=== PATIENT | male | born 1945 | race Caucasian/White ===

== ENCOUNTER → 2016-07-08 | Outpatient (CLI) | payer MEDICARE ==
[~2016-07-08] MED LIST: ACET50TAOT PO; AMLO10TA2 PO; ASPI325T28 PO; ASPI81TA85 PO; ATOR1TAB18 PO; ATOR40TA PO; CIPR500T89 PO; COMB0.2S OU; ELIQ2.5T PO; ELIQ5TAB PO; LISI-538 PO; LORA0.5T PO; METO25TAB PO; METO37.5 PO; NITR4TASL SL; PLAV75TA PO; RANI150C PO; RANI150T PO; TRAV04OPD OU
== END ==
LOC: M SMT 08:40
PROVIDERS: ATTEND Urology
DX: Z85.46 Personal history of malignant neoplasm of prostate (principal)

== ENCOUNTER 2016-08-14 09:48 | Emergency (ER) | payer MEDICARE ==
[~2016-08-14 09:48] MED LIST changes: +LORA-376 PO; -LORA0.5T PO; -PLAV75TA PO; +PLAV75TA38 PO
[2016-08-14 10:35] LABS: BASO % 0.5 % (0.0-1.0); EOS # 0.4 K/mm3 (0.0-0.50); EOS % 4.9 % (0.0-3.0); LARGE UNSTAINED CELL # 0.2 K/mm3 (0.0-0.4); LARGE UNSTAINED CELL % 2.1 % (0.0-4.0); LYMPH # 1.2 K/mm3 (1.5-4.5); LYMPH % 12.9 % (24.0-44.0); MEAN CORPUSCULAR HEMOGLOBIN 30.7 pg (27.0-33.0); MEAN CORPUSCULAR HGB CONC 33.6 g/dl (32.0-36.5); MEAN CORPUSCULAR VOLUME 91.5 fl (80.0-96.0); MONO % 11.8 % (0.0-5.0); NEUTROPHILS # 5.5 K/mm3 (1.8-7.7); NEUTROPHILS % 67.8 % (36.0-66.0); PLATELET COUNT, AUTOMATED 182 k/mm3 (150-450); RED CELL DISTRIBUTION WIDTH 12.5 % (11.5-14.5); WHITE BLOOD COUNT 8.1 K/mm3 (4.0-10.0)
[2016-08-14 10:37] LABS: MICROSCOPIC INDICATED? MAN YES (NO)
[2016-08-14 10:41] LABS: INR 1.31
[2016-08-14 10:42] LABS: RBC, URINE TNTC /hpf (0-3); SQUAMOUS EPITHELIAL CELL URINE SMALL AMOUNT /hpf (SMALL AMT)
[2016-08-14 10:43] LABS: BACTERIA, URINE NONE SEEN; HYALINE CAST, URINE NONE SEEN /lpf (0-1); MICROSCOPIC EXAM PERFORMED
[2016-08-14 10:53] LABS: CREATININE FOR GFR 1.7 MG/DL (0.70-1.30); GLOMERULAR FILTRATION RATE 42.4 (>42); POTASSIUM SERUM 4.5 MEQ/L (3.5-5.1)
--- NOTE | 2016-08-14 13:22 | EDDOCDS ---
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 noted blood in his urine on [facility] Monday without difficulty urinating. passed some clots in urine this morning. able to void just prior to arrival. Adult Sepsis Screening: The patient does not have new or worsening altered mentation. Patient's respiratory rate is less than 22. Systolic blood pressure is greater than 100. Patient has a qSOFA score of 0- Negative Sepsis Screen. Suicide/Homicide risk assessment- the patient denies having any suicidal and/or homicidal ideations and does not present with any other emotional, behavioral or mental health complaints. Status: Patient is not a repair servicer or dependent. Transition of care: patient was not received from another setting of care. 09:51 Acuity: FRANK Level 3 [facility] 09:51 Method Of Arrival: Walkin/Carried/Asstd [facility] Triage Assessment: 09:55 General: Appears in no apparent distress, comfortable. Pain: Denies pain. pml Historical: - Allergies: steroids (weight gain); - Home Meds: 1. amlodipine 10 mg oral tab 1 tab once daily 2. atorvastatin 80 mg oral tab 1 tab once daily 3. metoprolol tartrate 25 mg oral tab 1 tab once daily 4. Eliquis 2.5 mg oral tab 1 tab 2 times per day 5. ranitidine HCl 150 mg Oral tab 1 tab 2 times per day 6. aspirin 81 mg Oral TbEC 1 tab once daily 7. Combigan 0.2-0.5 % ophthalmic drop 1 drop every 12 hours 8. Travatan Z 0.004 % ophthalmic drop 1 drop once daily 9. lorazepam 0.5 mg Oral tab as needed - PMHx: Atrial Fib; Hypercholesterolemia; Hypertension; prostate cancer; - PSHx: Aortic valve replacement; CABG 2008; Prostatectomy 1996; - Social history: Smoking status: Patient states was never smoker of tobacco. No barriers to communication noted, The patient speaks fluent Bermudian, Speaks appropriately for age. - Family history: Not pertinent. - : The pt / caregiver states he / she is not on anticoagulants. Home medication list is obtained from the patient. - Exposure Risk Screening:: None identified. Screenin:28 Screening information is obtained from the patient. Fall risk: No risks identified. ck1 Assistance ADL's: requires no assistance with activities of daily living. Abuse/DV Screen: The patient / caregiver reports he/she is: not in a situation that causes fear, pain or injury. Nutritional screening: No deficits noted. Advance Directives: Currently, there is a health care proxy, Beth Cortez (). home support is adequate. Assessment: 10:29 General: Appears in no apparent distress, comfortable, Behavior is appropriate for age, ck1 cooperative. Pain: Denies pain. Neurological: Level of Consciousness is awake, alert, obeys commands, Oriented to person, place, time. Respiratory: Respiratory effort is unlabored, Respiratory pattern is regular, symmetrical. GI: No deficits noted. : Urine is ian blood, Denies burning with urination, inability to void, urinary frequency. Derm: Skin is intact, is healthy with good turgor, Skin is pink, warm & dry. Musculoskeletal: Circulation, motion, and sensation intact Range of motion intact in all extremities. 11:03 Reassessment: Patient appears in no apparent distress at this time. Patient denies pain ck1 at this time. resting quietly on stretcher. SO at bedside, call light in reach, will continue to monitor patient. 11:36 General: Appears in no apparent distress, comfortable, Behavior is appropriate for age, mlb1 cooperative. Pain: Denies pain. Neurological: No deficits noted. 12:04 General: Appears in no apparent distress, comfortable, Behavior is appropriate for age, mlb1 cooperative. Pain: Denies pain. : Urine is ian blood. 12:49 General: Appears in no apparent distress, comfortable, Behavior is appropriate for age, mlb1 cooperative. Pain: Denies pain. Respiratory: No deficits noted. Derm: Skin is pink, warm & dry. normal. 13:19 General: Appears in no apparent distress, comfortable, Behavior is appropriate for age, mlb1 cooperative. Pain: Denies pain. Respiratory: No deficits noted. :. Derm: Skin is pink, warm & dry. normal. Vital Signs: 09:50 BP 176 / 82; Pulse 56; Resp 16; Pulse Ox 100% on R/A; Weight 72.57 kg (R); Height 5 ft. elp 8 in. (172.72 cm) (R); 10:15 Temp 97.1(TE); jml1 13:19 BP 150 / 84; Pulse 60; Resp 16; Temp 96.7(O); Pulse Ox 97% on R/A; Pain 0/10; mlb1 09:50 Body Mass Index 24.33 (72.57 kg, 172.72 cm) elp 09:50 Could not get a temp at intake. elp Vitals: 09:50 Log In Time: August 14, 2016 at 09:48. elp ED Course: 09:49 Patient visited by Madelin Bass PCA. elp 09:49 Patient moved to Waiting elp 09:50 Arabella Davalos is Private Physician. elp 09:50 Patient visited by Madelin Bass PCA. elp 09:50 Patient moved to Pre RCE elp 09:52 Triage Initiated pml 09:55 Patient visited by Liliya Hernandez RN. pml 09:55 Patient moved to Triage 1 pml 09:56 [facility] ar2 09:56 Luke Gilbert MD is Attending Physician. ar2 09:56 Patient visited by Delfino Garcia PA-C. ar2 10:15 Patient visited by Fareed Landa. jml1 10:16 Patient moved to I2 / M2 mlb1 10:27 Patient visited by Antonia Campoverde,AVTAR. ck1 10:28 URINALYSIS MANUAL Sent. ck1 10:28 Pt & Aptt Sent. ck1 10:28 MED Profile Sent. ck1 10:28 CBC with Diff Sent. ck1 10:28 Inserted saline lock: 20 gauge in right antecubital area and blood collected. The ck1 patient tolerated the procedure well. 10:29 The patient / caregiver is instructed regarding the plan of care and ED course. ck1 10:39 MICROSCOPIC, URINE Sent. ck1 11:03 Patient visited by Antonia Campoverde,AVTAR. ck1 11:29 [facility] Payment Agreement was scanned into [employer] and attached to record. mm15 11:36 Patient visited by Nic Vasquez RN. mlb1 12:04 Patient visited by Nic Vasquez RN. mlb1 12:50 Patient visited by Antonia Campoverde RN. ck1 12:50 Patient visited by Nic Vasquez RN. mlb1 13:20 Discontinued lock intact, bleeding controlled, pressure dressing applied, No mlb1 redness/swelling at site. No procedures done that require assistance. Administered Medications: 10:28 Drug: NS 0.9% 1000 ml [sodium chloride 0.9 % intravenous solution] Route: IV; Rate: ck1 bolus; Site: right antecubital; 11:35 Follow up: IV Status: Completed infusion mlb1 12:03 Drug: NS 0.9% 1000 ml [sodium chloride 0.9 % injection solution] Route: IV; Rate: 250 mlb1 mL/hr; Site: left antecubital; Output: 12:03 Urine: 175.00ml (Voided); Total: 175.00ml. mlb1 Order Results: Lab Order: CBC with Diff; SPEC'M 08/14/16 10:18 Test: WHITE BLOOD COUNT; Value: 8.1; Range: 4.0-10.0; Units: K/mm3; Status: F Test: RED BLOOD COUNT; Value: 4.22; Range: 4.30-6.10; Abnormal: Below low normal; Units: M/mm3; Status: F Test: HEMOGLOBIN; Value: 13.0; Range: 14.0-18.0; Abnormal: Below low normal; Units: g/dl; Status: F Test: HEMATOCRIT; Value: 38.7; Range: 42.0-52.0; Abnormal: Below low normal; Units: %; Status: F Test: MEAN CORPUSCULAR VOLUME; Value: 91.5; Range: 80.0-96.0; Units: fl; Status: F Test: MEAN CORPUSCULAR HEMOGLOBIN; Value: 30.7; Range: 27.0-33.0; Units: pg; Status: F Test: MEAN CORPUSCULAR HGB CONC; Value: 33.6; Range: 32.0-36.5; Units: g/dl; Status: F Test: RED CELL DISTRIBUTION WIDTH; Value: 12.5; Range: 11.5-14.5; Units: %; Status: F Test: PLATELET COUNT, AUTOMATED; Value: 182; Range: 150-450; Units: k/mm3; Status: F Test: NEUTROPHILS %; Value: 67.8; Range: 36.0-66.0; Abnormal: Above high normal; Units: %; Status: F Test: LYMPH %; Value: 12.9; Range: 24.0-44.0; Abnormal: Below low normal; Units: %; Status: F Test: MONO %; Value: 11.8; Range: 0.0-5.0; Abnormal: Above high normal; Units: %; Status: F Test: EOS %; Value: 4.9; Range: 0.0-3.0; Abnormal: Above high normal; Units: %; Status: F Test: BASO %; Value: 0.5; Range: 0.0-1.0; Units: %; Status: F Test: LARGE UNSTAINED CELL %; Value: 2.1; Range: 0.0-4.0; Units: %; Status: F Test: NEUTROPHILS #; Value: 5.5; Range: 1.8-7.7; Units: K/mm3; Status: F Test: LYMPH #; Value: 1.2; Range: 1.5-4.5; Abnormal: Below low normal; Units: K/mm3; Status: F Test: MONO #; Value: 1.0; Range: 0.0-0.8; Abnormal: Above high normal; Units: K/mm3; Status: F Test: EOS #; Value: 0.4; Range: 0.0-0.50; Units: K/mm3; Status: F Test: BASO #; Value: 0.0; Range: 0.0-0.2; Units: K/mm3; Status: F Test: LARGE UNSTAINED CELL #; Value: 0.2; Range: 0.0-0.4; Units: K/mm3; Status: F Lab Order: [facility]; SPEC'M 08/14/16 10:18 Test: GLUCOSE, FASTING; Value: 105; Range: 83-110; Units: MG/DL; Status: F Test: BLOOD UREA NITROGEN; Value: 28; Range: 7-18; Abnormal: Above high normal; Units: MG/DL; Status: F Test: CREATININE FOR GFR; Value: 1.70; Range: 0.70-1.30; Abnormal: Above high normal; Units: MG/DL; Status: F Test: GLOMERULAR FILTRATION RATE; Value: 42.4; Range: >42; Status: F Test: SODIUM LEVEL; Value: 143; Range: 136-145; Units: MEQ/L; Status: F Test: POTASSIUM SERUM; Value: 4.5; Range: 3.5-5.1; Units: MEQ/L; Status: F Test: CHLORIDE LEVEL; Value: 109; Range: 98-107; Abnormal: Above high normal; Units: MEQ/L; Status: F Test: CARBON DIOXIDE LEVEL; Value: 28; Range: 21-32; Units: MEQ/L; Status: F Test: ANION GAP; Value: 6; Range: 8-16; Abnormal: Below low normal; Units: MEQ/L; Status: F Test: CALCIUM LEVEL; Value: 9.0; Range: 8.8-10.2; Units: MG/DL; Status: F Test Note: ; Units are mL/min/1.73 m2 Chronic Kidney Disease Staging per NKF: Stage I & II GFR >=60 Normal to Mildly Decreased Stage III GFR 30-59 Moderately Decreased Stage IV GFR 15-29 Severely Decreased Stage V GFR <15 Very Little GFR Left ESRD GFR <15 on HAIR BLENDER Lab Order: Pt & Aptt; SPEC'08/14/16 10:18 Test: PROTHROMBIN TIME; Value: 16.4; Range: 12.3-14.5; Abnormal: Above high normal; Units: SECONDS; Status: F Test: INR; Value: 1.31; Status: F Test: PARTIAL THROMBOPLASTIN TIME; Value: 31.8; Range: 26.6-37.1; Units: SECONDS; Status: F Test Note: ; THERAPUTIC HUMAN INR VALUES INDICATIONS NORMAL RANGES PROPHYLAXIS/TREATMENT OF: VENOUS THROMBOSIS 2.0-3.0 PULMONARY EMBOLISM 2.0-3.0 PREVENTION OF SYSTEMIC EMBOLISM FROM: TISSUE HEART VALVES 2.0-3.0 ACUTE MYOCARDIAL INFARCTION 2.0-3.0 VALVULAR HEART DISEASE 2.0-3.0 ATRIAL FIBRILLATION 2.0-3.0 MECHANICAL VALVES(HIGH RISK) 2.5-3.5 RECURRENT MYOCARDIAL INFARCTION 2.5-3.5 Lab Order: URINALYSIS MANUAL; SPEC'08/14/16 10:16 Test: APPEARANCE, URINE MANUAL; Value: CLOUDY; Range: CLEAR; Abnormal: Above high normal; Status: F Test: COLOR, URINE MANUAL; Value: RED; Range: YELLOW; Abnormal: Above high normal; Status: F Test: PH,URINE MAN; Value: 6.0; Range: 5.0 - 9.0; Units: UNITS; Status: F Test: SPECIFIC GRAVITY,URINE MANUAL; Value: 1.015; Range: 1.002-1.035; Status: F Test: PROTEIN, URINE MANUAL; Value: 3+; Range: NEGATIVE; Abnormal: Above high normal; Units: mg/dL; Status: F Test: GLUCOSE, URINE (UA) MANUAL; Value: NEGATIVE; Range: NEGATIVE; Units: mg/dL; Status: F Test: KETONE, URINE MANUAL; Value: NEGATIVE; Range: NEGATIVE; Units: mg/dL; Status: F Test: UROBILINOGEN, URINE MANUAL; Value: NORMAL; Range: NORMAL; Units: mg/dl; Status: F Test: BILIRUBIN, URINE MANUAL; Value: NEGATIVE; Range: NEGATIVE; Status: F Test: NITRITE, URINE MANUAL; Value: NEGATIVE; Range: NEGATIVE; Status: F Test: LEUKOCYTE ESTERASE, URINE MAN; Value: POSITIVE; Range: NEGATIVE; Abnormal: Above high normal; Status: F Test: BLOOD URINE MANUAL; Value: POSITIVE; Range: NEGATIVE; Abnormal: Above high normal; Status: F Lab Order: MICROSCOPIC, URINE; SPEC'M 08/14/16 10:16 Test: WBC, URINE; Value: 10-15; Range: 0-3; Abnormal: Above high normal; Units: /hpf; Status: F Test: RBC, URINE; Value: TNTC; Range: 0-3; Abnormal: Above high normal; Units: /hpf; Status: F Test: SQUAMOUS EPITHELIAL CELL URINE; Value: SMALL AMOUNT; Range: SMALL AMT; Units: /hpf; Status: F Test: BACTERIA, URINE; Value: NONE SEEN; Range: NONE; Status: F Test: HYALINE CAST, URINE; Value: NONE SEEN; Range: 0-1; Units: /lpf; Status: F Test: MICROSCOPIC EXAM; Value: PERFORMED; Status: F Outcome: 13:04 Discharge ordered by Provider. ar2 13:20 Discharge Assessment: Patient awake, alert and oriented x 3. No cognitive and/or mlb1 functional deficits noted. Patient verbalized understanding of disposition instructions. patient administered narcotics - no. The following High Risk Discharge criteria are identified: None. Discharged to home ambulatory, with significant other. Condition: good. Discharge instructions given to patient, significant other, Instructed on discharge instructions, follow up and referral plans. medication usage, Demonstrated understanding of instructions, medications, Pt was receptive of discharge instructions/ teaching. Prescriptions given X 1. No special radiology studies were completed. Property sent home with patient. 13:21 Patient left the ED. mlb1 Signatures: Nic Vasquez RN RN mlb1 Antonia CampoverdeRN RN ck1 Delfino Garcia, PAIgnacioC PAIgnacioC ar2 Fareed Landa jml1 Liliya HernandezRN RN pml Johnnie Pryor mm15 Madelin Bass, AMANDA DEHYDRATION UNIT OPERATOR elp Corrections: (The following items were deleted from the chart) 09:55 09:50 BP 176 / 82; Pulse 56bpm; Resp 16bpm; Pulse Ox 100% RA; 72.57 kg Reported; Height elp 5 ft. 8 in. Reported; BMI: 24.3; elp MTDD
--- NOTE | 2016-08-14 13:22 | EDDOCDS ---
Physician Documentation [facility] Name: Jefry Cortez Age: 70 yrs Sex: Male : 1945 Arrival Date: 08/14/2016 Time: 09:48 Bed I2 / M2 Private MD: Arabella Davalos Disposition: 08/14/16 13:04 Discharged to Home/Self Care. 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 - Condition is Stable. - Discharge Instructions: Hematuria, Adult. - Prescriptions for Cipro 250 mg Oral Tablet - take 1 tablet by ORAL route 2 times per day; 10 tablet. - Medication Reconciliation, Local Pharmacy Hours form. - Follow up: Private Physician; When: Call to arrange an appointment; Reason: Recheck today's complaints, Continuance of care. Follow up: Emergency Department; When: As needed; Reason: Worsening of conditions, unable to urinate. - Problem is new. - Symptoms have improved. - Notes: after discussion with Dr. Davenport (urology) and Dr. Mccray (cardiology) it is advised that you stop Eliquis for three days. resume Monday morning. continue aspirin. start cipro and drink plenty of fluids daily. call Dr. Ocasio' office tomorrow to schedule a follow up appointment. return to ER if you develop difficulty urinating Historical: - Allergies: steroids (weight gain); - Home Meds: 1. amlodipine 10 mg oral tab 1 tab once daily 2. atorvastatin 80 mg oral tab 1 tab once daily 3. metoprolol tartrate 25 mg oral tab 1 tab once daily 4. Eliquis 2.5 mg oral tab 1 tab 2 times per day 5. ranitidine HCl 150 mg Oral tab 1 tab 2 times per day 6. aspirin 81 mg Oral TbEC 1 tab once daily 7. Combigan 0.2-0.5 % ophthalmic drop 1 drop every 12 hours 8. Travatan Z 0.004 % ophthalmic drop 1 drop once daily 9. lorazepam 0.5 mg Oral tab as needed - PMHx: Atrial Fib; Hypercholesterolemia; Hypertension; prostate cancer; - PSHx: Aortic valve replacement; CABG 2008; Prostatectomy 1996; - Social history: Smoking status: Patient states was never smoker of tobacco. No barriers to communication noted, The patient speaks fluent Slovak, Speaks appropriately for age. - Family history: Not pertinent. - : The pt / caregiver states he / she is not on anticoagulants. Home medication list is obtained from the patient. - Exposure Risk Screening:: None identified. Vital Signs: 08/14 09:50 BP 176 / 82; Pulse 56; Resp 16; Pulse Ox 100% on R/A; Weight 72.57 kg / 159.99 lbs (R); elp Height 5 ft. 8 in. (172.72 cm) (R); 10:15 Temp 97.1(TE); jml1 13:19 BP 150 / 84; Pulse 60; Resp 16; Temp 96.7(O); Pulse Ox 97% on R/A; Pain 0/10; mlb1 09:50 Body Mass Index 24.33 (72.57 kg, 172.72 cm) elp 09:50 Could not get a temp at intake. elp MDM: 10:09 IV Saline Lock ordered. ar2 10:09 NS 0.9% 1000 ml IV at bolus once ordered. ar2 10:10 CBC with Diff Ordered. EDMS 10:10 MED Profile Ordered. EDMS 10:10 Pt & Aptt Ordered. EDMS 10:10 Urine Culture Ordered. EDMS 10:27 URINALYSIS MANUAL Ordered. EDMS 10:39 MICROSCOPIC, URINE Ordered. EDMS 11:10 CBC with Diff Reviewed. ar2 11:10 MED Profile Reviewed. ar2 11:10 Pt & Aptt Reviewed. ar2 11:10 URINALYSIS MANUAL Reviewed. ar2 11:10 MICROSCOPIC, URINE Reviewed. ar2 11:21 Financial registration complete. mm15 11:29 [facility] Payment Agreement was scanned into [employer] and attached to record. mm15 11:49 NS 0.9% 1000 ml IV at 250 mL/hr continuous ordered. ar2 Administered Medications: 10:28 Drug: NS 0.9% 1000 ml [sodium chloride 0.9 % intravenous solution] Route: IV; Rate: ck1 bolus; Site: right antecubital; 11:35 Follow up: IV Status: Completed infusion mlb1 12:03 Drug: NS 0.9% 1000 ml [sodium chloride 0.9 % injection solution] Route: IV; Rate: 250 mlb1 mL/hr; Site: left antecubital; Signatures: Dispatcher [employer] EDMS Nic Vasquez RN RN mlb1 Antonia CampoverdeRN RN ck1 Delfino Garcia PA-C PARei ar2 Liliya Hernandez RN RN pml Johnnie Pryor mm15 The chart was reviewed and I authenticate all verbal orders and agree with the evaluation and treatment provided.Corrections: (The following items were deleted from the chart) 10:26 10:10 URINALYSIS+LAB ordered. EDMS EDMS Attachments: 11:29 [facility] Payment Agreement mm15 MTDD
--- NOTE | 2016-08-16 14:22 | EDDOCDS ---
Physician Documentation [facility] Name: Jefry Cortez Age: 70 yrs Sex: Male : 1945 Arrival Date: 08/14/2016 Time: 09:48 Bed I2 / M2 Private MD: Arabella Davalos Disposition: 08/14/16 13:04 Discharged to Home/Self Care. 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 - Condition is Stable. - Discharge Instructions: Hematuria, Adult. - Prescriptions for Cipro 250 mg Oral Tablet - take 1 tablet by ORAL route 2 times per day; 10 tablet. - Medication Reconciliation, Local Pharmacy Hours form. - Follow up: Private Physician; When: Call to arrange an appointment; Reason: Recheck today's complaints, Continuance of care. Follow up: Emergency Department; When: As needed; Reason: Worsening of conditions, unable to urinate. - Problem is new. - Symptoms have improved. - Notes: after discussion with Dr. Davenport (urology) and Dr. Mccray (cardiology) it is advised that you stop Eliquis for three days. resume Monday morning. continue aspirin. start cipro and drink plenty of fluids daily. call Dr. Ocasio' office tomorrow to schedule a follow up appointment. return to ER if you develop difficulty urinating Historical: - Allergies: steroids (weight gain); - Home Meds: 1. amlodipine 10 mg oral tab 1 tab once daily 2. atorvastatin 80 mg oral tab 1 tab once daily 3. metoprolol tartrate 25 mg oral tab 1 tab once daily 4. Eliquis 2.5 mg oral tab 1 tab 2 times per day 5. ranitidine HCl 150 mg Oral tab 1 tab 2 times per day 6. aspirin 81 mg Oral TbEC 1 tab once daily 7. Combigan 0.2-0.5 % ophthalmic drop 1 drop every 12 hours 8. Travatan Z 0.004 % ophthalmic drop 1 drop once daily 9. lorazepam 0.5 mg Oral tab as needed - PMHx: Atrial Fib; Hypercholesterolemia; Hypertension; prostate cancer; - PSHx: Aortic valve replacement; CABG 2008; Prostatectomy 1996; - Social history: Smoking status: Patient states was never smoker of tobacco. No barriers to communication noted, The patient speaks fluent Upper Sorbian, Speaks appropriately for age. - Family history: Not pertinent. - : The pt / caregiver states he / she is not on anticoagulants. Home medication list is obtained from the patient. - Exposure Risk Screening:: None identified. Vital Signs: 08/14 09:50 BP 176 / 82; Pulse 56; Resp 16; Pulse Ox 100% on R/A; Weight 72.57 kg / 159.99 lbs (R); elp Height 5 ft. 8 in. (172.72 cm) (R); 10:15 Temp 97.1(TE); jml1 13:19 BP 150 / 84; Pulse 60; Resp 16; Temp 96.7(O); Pulse Ox 97% on R/A; Pain 0/10; mlb1 09:50 Body Mass Index 24.33 (72.57 kg, 172.72 cm) elp 09:50 Could not get a temp at intake. elp MDM: 10:09 IV Saline Lock ordered. ar2 10:09 NS 0.9% 1000 ml IV at bolus once ordered. ar2 10:10 CBC with Diff Ordered. EDMS 10:10 MED Profile Ordered. EDMS 10:10 Pt & Aptt Ordered. EDMS 10:10 Urine Culture Ordered. EDMS 10:27 URINALYSIS MANUAL Ordered. EDMS 10:39 MICROSCOPIC, URINE Ordered. EDMS 11:10 CBC with Diff Reviewed. ar2 11:10 MED Profile Reviewed. ar2 11:10 Pt & Aptt Reviewed. ar2 11:10 URINALYSIS MANUAL Reviewed. ar2 11:10 MICROSCOPIC, URINE Reviewed. ar2 11:21 Financial registration complete. mm15 11:29 [facility] Payment Agreement was scanned into [employer] and attached to record. mm15 11:49 NS 0.9% 1000 ml IV at 250 mL/hr continuous ordered. ar2 19:56 T-Sheet-- Draft Copy was scanned into [employer] and attached to record. klr Administered Medications: 10:28 Drug: NS 0.9% 1000 ml [sodium chloride 0.9 % intravenous solution] Route: IV; Rate: ck1 bolus; Site: right antecubital; 11:35 Follow up: IV Status: Completed infusion mlb1 12:03 Drug: NS 0.9% 1000 ml [sodium chloride 0.9 % injection solution] Route: IV; Rate: 250 mlb1 mL/hr; Site: left antecubital; Signatures: Dispatcher [employer] EDMS Nic Vasquez RN RN mlb1 Antonia Campoverde RN RN ck1 Delfino Garcia PA-C PARei ar2 Liliya Hernandez RN RN pml Johnnie Pryor mm15 Jerilyn Durham The chart was reviewed and I authenticate all verbal orders and agree with the evaluation and treatment provided.Corrections: (The following items were deleted from the chart) 10:26 10:10 URINALYSIS+LAB ordered. EDTN EDMS Attachments: 11:29 [facility] Payment Agreement mm15 19:56 T-Sheet-- Draft Copy klr Chart Complete MTDD
--- NOTE | 2016-08-16 14:22 | EDDOCDS ---
Physician Documentation [facility] Name: Jefry Cortez Age: 70 yrs Sex: Male : 1945 Arrival Date: 08/14/2016 Time: 09:48 Bed I2 / M2 Private MD: Arabella Davalos Disposition: 08/14/16 13:04 Discharged to Home/Self Care. 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 - Condition is Stable. - Discharge Instructions: Hematuria, Adult. - Prescriptions for Cipro 250 mg Oral Tablet - take 1 tablet by ORAL route 2 times per day; 10 tablet. - Medication Reconciliation, Local Pharmacy Hours form. - Follow up: Private Physician; When: Call to arrange an appointment; Reason: Recheck today's complaints, Continuance of care. Follow up: Emergency Department; When: As needed; Reason: Worsening of conditions, unable to urinate. - Problem is new. - Symptoms have improved. - Notes: after discussion with Dr. Davenport (urology) and Dr. Mccray (cardiology) it is advised that you stop Eliquis for three days. resume Monday morning. continue aspirin. start cipro and drink plenty of fluids daily. call Dr. Ocasio' office tomorrow to schedule a follow up appointment. return to ER if you develop difficulty urinating Historical: - Allergies: steroids (weight gain); - Home Meds: 1. amlodipine 10 mg oral tab 1 tab once daily 2. atorvastatin 80 mg oral tab 1 tab once daily 3. metoprolol tartrate 25 mg oral tab 1 tab once daily 4. Eliquis 2.5 mg oral tab 1 tab 2 times per day 5. ranitidine HCl 150 mg Oral tab 1 tab 2 times per day 6. aspirin 81 mg Oral TbEC 1 tab once daily 7. Combigan 0.2-0.5 % ophthalmic drop 1 drop every 12 hours 8. Travatan Z 0.004 % ophthalmic drop 1 drop once daily 9. lorazepam 0.5 mg Oral tab as needed - PMHx: Atrial Fib; Hypercholesterolemia; Hypertension; prostate cancer; - PSHx: Aortic valve replacement; CABG 2008; Prostatectomy 1996; - Social history: Smoking status: Patient states was never smoker of tobacco. No barriers to communication noted, The patient speaks fluent Romanian, Speaks appropriately for age. - Family history: Not pertinent. - : The pt / caregiver states he / she is not on anticoagulants. Home medication list is obtained from the patient. - Exposure Risk Screening:: None identified. Vital Signs: 08/14 09:50 BP 176 / 82; Pulse 56; Resp 16; Pulse Ox 100% on R/A; Weight 72.57 kg / 159.99 lbs (R); elp Height 5 ft. 8 in. (172.72 cm) (R); 10:15 Temp 97.1(TE); jml1 13:19 BP 150 / 84; Pulse 60; Resp 16; Temp 96.7(O); Pulse Ox 97% on R/A; Pain 0/10; mlb1 09:50 Body Mass Index 24.33 (72.57 kg, 172.72 cm) elp 09:50 Could not get a temp at intake. elp MDM: 10:09 IV Saline Lock ordered. ar2 10:09 NS 0.9% 1000 ml IV at bolus once ordered. ar2 10:10 CBC with Diff Ordered. EDMS 10:10 MED Profile Ordered. EDMS 10:10 Pt & Aptt Ordered. EDMS 10:10 Urine Culture Ordered. EDMS 10:27 URINALYSIS MANUAL Ordered. EDMS 10:39 MICROSCOPIC, URINE Ordered. EDMS 11:10 CBC with Diff Reviewed. ar2 11:10 MED Profile Reviewed. ar2 11:10 Pt & Aptt Reviewed. ar2 11:10 URINALYSIS MANUAL Reviewed. ar2 11:10 MICROSCOPIC, URINE Reviewed. ar2 11:21 Financial registration complete. mm15 11:29 [facility] Payment Agreement was scanned into [employer] and attached to record. mm15 11:49 NS 0.9% 1000 ml IV at 250 mL/hr continuous ordered. ar2 19:56 T-Sheet-- Draft Copy was scanned into [employer] and attached to record. klr Administered Medications: 10:28 Drug: NS 0.9% 1000 ml [sodium chloride 0.9 % intravenous solution] Route: IV; Rate: ck1 bolus; Site: right antecubital; 11:35 Follow up: IV Status: Completed infusion mlb1 12:03 Drug: NS 0.9% 1000 ml [sodium chloride 0.9 % injection solution] Route: IV; Rate: 250 mlb1 mL/hr; Site: left antecubital; Signatures: Dispatcher [employer] EDMS Nic Vasquez RN RN mlb1 Antonia Campoverde RN RN ck1 Delfino Garcia PA-C PARei ar2 Liliya Hernandez RN RN pml Johnnie Pryor mm15 Jerilyn Durham The chart was reviewed and I authenticate all verbal orders and agree with the evaluation and treatment provided.Corrections: (The following items were deleted from the chart) 10:26 10:10 URINALYSIS+LAB ordered. EDFL EDMS Attachments: 11:29 [facility] Payment Agreement mm15 19:56 T-Sheet-- Draft Copy klr Chart Complete MTDD
--- NOTE | 2016-08-16 14:22 | EDDOCDS ---
Nurse's Notes [facility] Name: Jefry Cortez Age: 70 yrs Sex: Male : 1945 Arrival Date: 08/14/2016 Time: 09:48 Bed I2 / M2 Private MD: Arabella Davalos Diagnosis: Gross hematuria-due to radiation cystitis Presentation: 08/14 09:51 Presenting complaint: Patient states: difficulty urinating. noted blood in his urine on [facility] Monday without difficulty urinating. passed some clots in urine this morning. able to void just prior to arrival. Adult Sepsis Screening: The patient does not have new or worsening altered mentation. Patient's respiratory rate is less than 22. Systolic blood pressure is greater than 100. Patient has a qSOFA score of 0- Negative Sepsis Screen. Suicide/Homicide risk assessment- the patient denies having any suicidal and/or homicidal ideations and does not present with any other emotional, behavioral or mental health complaints. Status: Patient is not a elevator service mechanic or dependent. Transition of care: patient was not received from another setting of care. 09:51 Acuity: FRANK Level 3 [facility] 09:51 Method Of Arrival: Walkin/Carried/Asstd [facility] Triage Assessment: 09:55 General: Appears in no apparent distress, comfortable. Pain: Denies pain. pml Historical: - Allergies: steroids (weight gain); - Home Meds: 1. amlodipine 10 mg oral tab 1 tab once daily 2. atorvastatin 80 mg oral tab 1 tab once daily 3. metoprolol tartrate 25 mg oral tab 1 tab once daily 4. Eliquis 2.5 mg oral tab 1 tab 2 times per day 5. ranitidine HCl 150 mg Oral tab 1 tab 2 times per day 6. aspirin 81 mg Oral TbEC 1 tab once daily 7. Combigan 0.2-0.5 % ophthalmic drop 1 drop every 12 hours 8. Travatan Z 0.004 % ophthalmic drop 1 drop once daily 9. lorazepam 0.5 mg Oral tab as needed - PMHx: Atrial Fib; Hypercholesterolemia; Hypertension; prostate cancer; - PSHx: Aortic valve replacement; CABG 2008; Prostatectomy 1996; - Social history: Smoking status: Patient states was never smoker of tobacco. No barriers to communication noted, The patient speaks fluent Macedonian, Speaks appropriately for age. - Family history: Not pertinent. - : The pt / caregiver states he / she is not on anticoagulants. Home medication list is obtained from the patient. - Exposure Risk Screening:: None identified. Screenin:28 Screening information is obtained from the patient. Fall risk: No risks identified. ck1 Assistance ADL's: requires no assistance with activities of daily living. Abuse/DV Screen: The patient / caregiver reports he/she is: not in a situation that causes fear, pain or injury. Nutritional screening: No deficits noted. Advance Directives: Currently, there is a health care proxy, Beth Cortez (). home support is adequate. Assessment: 10:29 General: Appears in no apparent distress, comfortable, Behavior is appropriate for age, ck1 cooperative. Pain: Denies pain. Neurological: Level of Consciousness is awake, alert, obeys commands, Oriented to person, place, time. Respiratory: Respiratory effort is unlabored, Respiratory pattern is regular, symmetrical. GI: No deficits noted. : Urine is ian blood, Denies burning with urination, inability to void, urinary frequency. Derm: Skin is intact, is healthy with good turgor, Skin is pink, warm & dry. Musculoskeletal: Circulation, motion, and sensation intact Range of motion intact in all extremities. 11:03 Reassessment: Patient appears in no apparent distress at this time. Patient denies pain ck1 at this time. resting quietly on stretcher. SO at bedside, call light in reach, will continue to monitor patient. 11:36 General: Appears in no apparent distress, comfortable, Behavior is appropriate for age, mlb1 cooperative. Pain: Denies pain. Neurological: No deficits noted. 12:04 General: Appears in no apparent distress, comfortable, Behavior is appropriate for age, mlb1 cooperative. Pain: Denies pain. : Urine is ian blood. 12:49 General: Appears in no apparent distress, comfortable, Behavior is appropriate for age, mlb1 cooperative. Pain: Denies pain. Respiratory: No deficits noted. Derm: Skin is pink, warm & dry. normal. 13:19 General: Appears in no apparent distress, comfortable, Behavior is appropriate for age, mlb1 cooperative. Pain: Denies pain. Respiratory: No deficits noted. :. Derm: Skin is pink, warm & dry. normal. Vital Signs: 09:50 BP 176 / 82; Pulse 56; Resp 16; Pulse Ox 100% on R/A; Weight 72.57 kg (R); Height 5 ft. elp 8 in. (172.72 cm) (R); 10:15 Temp 97.1(TE); jml1 13:19 BP 150 / 84; Pulse 60; Resp 16; Temp 96.7(O); Pulse Ox 97% on R/A; Pain 0/10; mlb1 09:50 Body Mass Index 24.33 (72.57 kg, 172.72 cm) elp 09:50 Could not get a temp at intake. elp Vitals: 09:50 Log In Time: August 14, 2016 at 09:48. elp ED Course: 09:49 Patient visited by Madelin Bass PCA. elp 09:49 Patient moved to Waiting elp 09:50 Arabella Davalos is Private Physician. elp 09:50 Patient visited by Madelin Bass PCA. elp 09:50 Patient moved to Pre RCE elp 09:52 Triage Initiated pml 09:55 Patient visited by Liliya Hernandez RN. pml 09:55 Patient moved to Triage 1 pml 09:56 Delf[facility] ar2 09:56 Luke Gilbert MD is Attending Physician. ar2 09:56 Patient visited by Delfino Garcia PA-C. ar2 10:15 Patient visited by Fareed Landa. jml1 10:16 Patient moved to I2 / M2 mlb1 10:27 Patient visited by Antonia Campoverde,AVTAR. ck1 10:28 URINALYSIS MANUAL Sent. ck1 10:28 Pt & Aptt Sent. ck1 10:28 MED Profile Sent. ck1 10:28 CBC with Diff Sent. ck1 10:28 Inserted saline lock: 20 gauge in right antecubital area and blood collected. The ck1 patient tolerated the procedure well. 10:29 The patient / caregiver is instructed regarding the plan of care and ED course. ck1 10:39 MICROSCOPIC, URINE Sent. ck1 11:03 Patient visited by Antonia Campoverde,AVTAR. ck1 11:29 [facility] Payment Agreement was scanned into [employer] and attached to record. mm15 11:36 Patient visited by Nic Vasquez RN. mlb1 12:04 Patient visited by Nic Vasquez RN. mlb1 12:50 Patient visited by Antonia Campoverde RN. ck1 12:50 Patient visited by Nic Vasquez RN. mlb1 13:20 Discontinued lock intact, bleeding controlled, pressure dressing applied, No mlb1 redness/swelling at site. No procedures done that require assistance. 19:56 T-Sheet-- Draft Copy was scanned into [employer] and attached to record. klr Administered Medications: 10:28 Drug: NS 0.9% 1000 ml [sodium chloride 0.9 % intravenous solution] Route: IV; Rate: ck1 bolus; Site: right antecubital; 11:35 Follow up: IV Status: Completed infusion mlb1 12:03 Drug: NS 0.9% 1000 ml [sodium chloride 0.9 % injection solution] Route: IV; Rate: 250 mlb1 mL/hr; Site: left antecubital; Output: 12:03 Urine: 175.00ml (Voided); Total: 175.00ml. mlb1 Order Results: Lab Order: CBC with Diff; SPEC'M 08/14/16 10:18 Test: WHITE BLOOD COUNT; Value: 8.1; Range: 4.0-10.0; Units: K/mm3; Status: F Test: RED BLOOD COUNT; Value: 4.22; Range: 4.30-6.10; Abnormal: Below low normal; Units: M/mm3; Status: F Test: HEMOGLOBIN; Value: 13.0; Range: 14.0-18.0; Abnormal: Below low normal; Units: g/dl; Status: F Test: HEMATOCRIT; Value: 38.7; Range: 42.0-52.0; Abnormal: Below low normal; Units: %; Status: F Test: MEAN CORPUSCULAR VOLUME; Value: 91.5; Range: 80.0-96.0; Units: fl; Status: F Test: MEAN CORPUSCULAR HEMOGLOBIN; Value: 30.7; Range: 27.0-33.0; Units: pg; Status: F Test: MEAN CORPUSCULAR HGB CONC; Value: 33.6; Range: 32.0-36.5; Units: g/dl; Status: F Test: RED CELL DISTRIBUTION WIDTH; Value: 12.5; Range: 11.5-14.5; Units: %; Status: F Test: PLATELET COUNT, AUTOMATED; Value: 182; Range: 150-450; Units: k/mm3; Status: F Test: NEUTROPHILS %; Value: 67.8; Range: 36.0-66.0; Abnormal: Above high normal; Units: %; Status: F Test: LYMPH %; Value: 12.9; Range: 24.0-44.0; Abnormal: Below low normal; Units: %; Status: F Test: MONO %; Value: 11.8; Range: 0.0-5.0; Abnormal: Above high normal; Units: %; Status: F Test: EOS %; Value: 4.9; Range: 0.0-3.0; Abnormal: Above high normal; Units: %; Status: F Test: BASO %; Value: 0.5; Range: 0.0-1.0; Units: %; Status: F Test: LARGE UNSTAINED CELL %; Value: 2.1; Range: 0.0-4.0; Units: %; Status: F Test: NEUTROPHILS #; Value: 5.5; Range: 1.8-7.7; Units: K/mm3; Status: F Test: LYMPH #; Value: 1.2; Range: 1.5-4.5; Abnormal: Below low normal; Units: K/mm3; Status: F Test: MONO #; Value: 1.0; Range: 0.0-0.8; Abnormal: Above high normal; Units: K/mm3; Status: F Test: EOS #; Value: 0.4; Range: 0.0-0.50; Units: K/mm3; Status: F Test: BASO #; Value: 0.0; Range: 0.0-0.2; Units: K/mm3; Status: F Test: LARGE UNSTAINED CELL #; Value: 0.2; Range: 0.0-0.4; Units: K/mm3; Status: F Lab Order: MED Profile; SPEC'M 08/14/16 10:18 Test: GLUCOSE, FASTING; Value: 105; Range: 83-110; Units: MG/DL; Status: F Test: BLOOD UREA NITROGEN; Value: 28; Range: 7-18; Abnormal: Above high normal; Units: MG/DL; Status: F Test: CREATININE FOR GFR; Value: 1.70; Range: 0.70-1.30; Abnormal: Above high normal; Units: MG/DL; Status: F Test: GLOMERULAR FILTRATION RATE; Value: 42.4; Range: >42; Status: F Test: SODIUM LEVEL; Value: 143; Range: 136-145; Units: MEQ/L; Status: F Test: POTASSIUM SERUM; Value: 4.5; Range: 3.5-5.1; Units: MEQ/L; Status: F Test: CHLORIDE LEVEL; Value: 109; Range: 98-107; Abnormal: Above high normal; Units: MEQ/L; Status: F Test: CARBON DIOXIDE LEVEL; Value: 28; Range: 21-32; Units: MEQ/L; Status: F Test: ANION GAP; Value: 6; Range: 8-16; Abnormal: Below low normal; Units: MEQ/L; Status: F Test: CALCIUM LEVEL; Value: 9.0; Range: 8.8-10.2; Units: MG/DL; Status: F Test Note: ; Units are mL/min/1.73 m2 Chronic Kidney Disease Staging per NKF: Stage I & II GFR >=60 Normal to Mildly Decreased Stage III GFR 30-59 Moderately Decreased Stage IV GFR 15-29 Severely Decreased Stage V GFR <15 Very Little GFR Left ESRD GFR <15 on SENIOR STACK ENGINEER Lab Order: Pt & Aptt; SPEC'M 08/14/16 10:18 Test: PROTHROMBIN TIME; Value: 16.4; Range: 12.3-14.5; Abnormal: Above high normal; Units: SECONDS; Status: F Test: INR; Value: 1.31; Status: F Test: PARTIAL THROMBOPLASTIN TIME; Value: 31.8; Range: 26.6-37.1; Units: SECONDS; Status: F Test Note: ; THERAPUTIC HUMAN INR VALUES INDICATIONS NORMAL RANGES PROPHYLAXIS/TREATMENT OF: VENOUS THROMBOSIS 2.0-3.0 PULMONARY EMBOLISM 2.0-3.0 PREVENTION OF SYSTEMIC EMBOLISM FROM: TISSUE HEART VALVES 2.0-3.0 ACUTE MYOCARDIAL INFARCTION 2.0-3.0 VALVULAR HEART DISEASE 2.0-3.0 ATRIAL FIBRILLATION 2.0-3.0 MECHANICAL VALVES(HIGH RISK) 2.5-3.5 RECURRENT MYOCARDIAL INFARCTION 2.5-3.5 Lab Order: Urine Culture; SPEC'M 08/14/16 10:16 Test: URINE CULTURE; Value: <EXTERNAL COMMENT eCWMed> FULL REPORT IN LAB NOTES (eCW and Medent).; Status: F Test: URINE CULTURE; Value: ORGANISM 1: STAPHYLOCOCCUS AUREUS; Status: F Test: URINE CULTURE; Value: STAPHYLOCOCCUS AUREUS; Status: F Test: URINE CULTURE; Value: COLONY COUNT CFU/ml >100,000; Status: F Test: URINE CULTURE; Value: GRAM POS SENSI - VITEK 67; Status: F Test: URINE CULTURE; Value: Method: VIT2; Status: F Test: URINE CULTURE; Value: TETRACYCLINE <=1 S; Status: F Test: URINE CULTURE; Value: PENICILLIN G >=0.5 R; Status: F Test: URINE CULTURE; Value: TRIMETHOPRIM/SULFAMETHOXAZOLE <=10 S; Status: F Test: URINE CULTURE; Value: ERYTHROMYCIN 0.5 S; Status: F Test: URINE CULTURE; Value: GENTAMICIN <=0.5 S; Status: F Test: URINE CULTURE; Value: CLINDAMYCIN <=0.25 S; Status: F Test: URINE CULTURE; Value: NITROFURANTOIN 32 S; Status: F Test: URINE CULTURE; Value: OXACILLIN 0.5 S; Status: F Test: URINE CULTURE; Value: VANCOMYCIN <=0.5 S; Status: F Test: URINE CULTURE; Value: LINEZOLID (ZYVOX) 2 S; Status: F Lab Order: URINALYSIS MANUAL; SPEC'M 08/14/16 10:16 Test: APPEARANCE, URINE MANUAL; Value: CLOUDY; Range: CLEAR; Abnormal: Above high normal; Status: F Test: COLOR, URINE MANUAL; Value: RED; Range: YELLOW; Abnormal: Above high normal; Status: F Test: PH,URINE MAN; Value: 6.0; Range: 5.0 - 9.0; Units: UNITS; Status: F Test: SPECIFIC GRAVITY,URINE MANUAL; Value: 1.015; Range: 1.002-1.035; Status: F Test: PROTEIN, URINE MANUAL; Value: 3+; Range: NEGATIVE; Abnormal: Above high normal; Units: mg/dL; Status: F Test: GLUCOSE, URINE (UA) MANUAL; Value: NEGATIVE; Range: NEGATIVE; Units: mg/dL; Status: F Test: KETONE, URINE MANUAL; Value: NEGATIVE; Range: NEGATIVE; Units: mg/dL; Status: F Test: UROBILINOGEN, URINE MANUAL; Value: NORMAL; Range: NORMAL; Units: mg/dl; Status: F Test: BILIRUBIN, URINE MANUAL; Value: NEGATIVE; Range: NEGATIVE; Status: F Test: NITRITE, URINE MANUAL; Value: NEGATIVE; Range: NEGATIVE; Status: F Test: LEUKOCYTE ESTERASE, URINE MAN; Value: POSITIVE; Range: NEGATIVE; Abnormal: Above high normal; Status: F Test: BLOOD URINE MANUAL; Value: POSITIVE; Range: NEGATIVE; Abnormal: Above high normal; Status: F Lab Order: MICROSCOPIC, URINE; SPEC'M 08/14/16 10:16 Test: WBC, URINE; Value: 10-15; Range: 0-3; Abnormal: Above high normal; Units: /hpf; Status: F Test: RBC, URINE; Value: TNTC; Range: 0-3; Abnormal: Above high normal; Units: /hpf; Status: F Test: SQUAMOUS EPITHELIAL CELL URINE; Value: SMALL AMOUNT; Range: SMALL AMT; Units: /hpf; Status: F Test: BACTERIA, URINE; Value: NONE SEEN; Range: NONE; Status: F Test: HYALINE CAST, URINE; Value: NONE SEEN; Range: 0-1; Units: /lpf; Status: F Test: MICROSCOPIC EXAM; Value: PERFORMED; Status: F Outcome: 13:04 Discharge ordered by Provider. ar2 13:20 Discharge Assessment: Patient awake, alert and oriented x 3. No cognitive and/or mlb1 functional deficits noted. Patient verbalized understanding of disposition instructions. patient administered narcotics - no. The following High Risk Discharge criteria are identified: None. Discharged to home ambulatory, with significant other. Condition: good. Discharge instructions given to patient, significant other, Instructed on discharge instructions, follow up and referral plans. medication usage, Demonstrated understanding of instructions, medications, Pt was receptive of discharge instructions/ teaching. Prescriptions given X 1. No special radiology studies were completed. Property sent home with patient. 13:21 Patient left the ED. mlb1 Signatures: Nic Vasquez RN RN mlb1 Antonia Campoverde RN RN ck1 Delfino Garcia PA-C PA-C ar2 Fareed Landa jml1 Liliya HernandezRN RN [facility] Johnnie Pryor mm15 Madelin Bass, DOLPHIN TRAINER DOLPHIN TRAINER elp Jerilyn Durham Corrections: (The following items were deleted from the chart) 09:55 09:50 BP 176 / 82; Pulse 56bpm; Resp 16bpm; Pulse Ox 100% RA; 72.57 kg Reported; Height elp 5 ft. 8 in. Reported; BMI: 24.3; elp Chart Complete MTDD
== END 2016-08-14 13:21 | disposition home or self-care (01) ==
LOC: M ED 09:48
DX: R31.0 Gross hematuria (principal); I48.91 Unspecified atrial fibrillation; E78.00 Pure hypercholesterolemia, unspecified; I10 Essential (primary) hypertension; Z85.46 Personal history of malignant neoplasm of prostate; Z95.2 Presence of prosthetic heart valve; Z95.1 Presence of aortocoronary bypass graft; Z90.79 Acquired absence of other genital organ(s); Z79.82 Long term (current) use of aspirin; Z79.899 Other long term (current) drug therapy; Z88.8 Allergy status to other drugs, medicaments and biological substances

== ENCOUNTER → 2016-08-22 | Outpatient (REF) | payer MEDICARE | LOC: M LAB REF 12:05 | PROVIDERS: ATTEND Internal Medicine | DX: R31.9 Hematuria, unspecified (principal); N39.0 Urinary tract infection, site not specified ==

== ENCOUNTER 2016-09-18 12:29 | Emergency (ER) | payer MEDICARE ==
[~2016-09-18] VITALS: Ht 172.7 cm; Wt 71.7 kg
[2016-09-18 13:08] LABS: BASO % 0.7 % (0.0-1.0); EOS # 0.2 K/mm3 (0.0-0.50); EOS % 2.9 % (0.0-3.0); LARGE UNSTAINED CELL # 0.2 K/mm3 (0.0-0.4); LARGE UNSTAINED CELL % 2.6 % (0.0-4.0); LYMPH % 15.5 % (24.0-44.0); MEAN CORPUSCULAR HEMOGLOBIN 30.8 pg (27.0-33.0); MEAN CORPUSCULAR HGB CONC 34.5 g/dl (32.0-36.5); MEAN CORPUSCULAR VOLUME 89.4 fl (80.0-96.0); MONO # 0.7 K/mm3 (0.0-0.8); MONO % 11.6 % (0.0-5.0); NEUTROPHILS # 4.2 K/mm3 (1.8-7.7); NEUTROPHILS % 66.6 % (36.0-66.0); PLATELET COUNT, AUTOMATED 204 k/mm3 (150-450); RED CELL DISTRIBUTION WIDTH 12.4 % (11.5-14.5); WHITE BLOOD COUNT 6.3 K/mm3 (4.0-10.0)
[2016-09-18 13:28] LABS: ALBUMIN 3.6 GM/DL (3.2-5.2); ALBUMIN/GLOBULIN RATIO 0.88 (1.00-1.93); ALKALINE PHOSPHATASE 119 U/L (45-117); ALT/SGPT 26 U/L (12-78); ANION GAP 8 MEQ/L (8-16); AST/SGOT 23 U/L (15-37); BILIRUBIN,DIRECT 0.1 MG/DL (0.0-0.2); BILIRUBIN,TOTAL 0.4 MG/DL (0.2-1.0); BLOOD UREA NITROGEN 22 MG/DL (7-18); CARBON DIOXIDE LEVEL 27 MEQ/L (21-32); CHLORIDE LEVEL 106 MEQ/L (98-107); CREATININE FOR GFR 1.53 MG/DL (0.70-1.30); FREE T4 0.98 NG/DL (0.76-1.46); GLOMERULAR FILTRATION RATE 47.9 (>42); GLUCOSE, FASTING 124 MG/DL (83-110); MAGNESIUM LEVEL 2.3 MG/DL (1.8-2.4); POTASSIUM SERUM 4.2 MEQ/L (3.5-5.1); SODIUM LEVEL 141 MEQ/L (136-145); TOTAL PROTEIN 7.7 GM/DL (6.4-8.2)
--- NOTE | 2016-09-18 14:16 | REP ---
Chest x-ray: Two views. History: Shortness of breath. Comparison chest x-ray is from February 10, 2016. Findings: The patient is status post prior median sternotomy. The aorta is calcific and somewhat tortuous. The heart is not enlarged. EKG electrodes are seen. Pulmonary vasculature is not increased. There is coronary artery stent material visible. Pulmonary vasculature is not increased. Impression: No active disease. The patient status post prior sternotomy. Signed by Chandrakant Steele MD 09/18/2016 05:11 P
[2016-09-18 15:40] VITALS: BP 117/71
--- NOTE | 2016-09-18 20:35 | ECGEPIP ---
Stationary ECG Study [facility] - ED Test Date: 2016-09-18 Pat Name: AXEL CONLEY Department: Room: - Gender: M Dental Biller: ct : 1945 Requested By: Linda Jones Order Number: [id number] Reading MD: Linda Jones Measurements Intervals [place] Rate: 62 P: IN: 0 QRS: 40 QRSD: 88 T: 50 QT: 386 QTc: 394 Interpretive Statements ATRIAL FIBRILLATION MODERATE ST DEPRESSION DELAYED R PROGRESSION PRIOR 02/10/16 SINUS Electronically Signed On 09-18-2016 20:34:33 EDT by Linad Jones
== END 2016-09-18 15:42 | disposition home or self-care (01) ==
LOC: M ED 12:59
DX: I48.91 Unspecified atrial fibrillation (principal)

== ENCOUNTER → 2017-01-11 | Outpatient (CLI) | payer MEDICARE ==
[~2017-01-11] MED LIST changes: -ATOR1TAB18 PO; -ATOR40TA PO; +ATOR40TA75 PO; +ATOR80TA59 PO; +CIPR-249 PO; -CIPR500T89 PO; -LORA-376 PO; +LORA0.5T11 PO; +PLAV1TAB2 PO; -PLAV75TA38 PO
== END ==
LOC: M SMT 09:44
PROVIDERS: ATTEND Urology
DX: Z85.46 Personal history of malignant neoplasm of prostate (principal)

== ENCOUNTER 2017-07-28 14:48 | Inpatient (IN) | payer MEDICARE ==
[2017-07-28] MEDS ORDERED: LABETALOL HCL 100 MG/20 ML VIAL IV (15:15)
[2017-07-28 15:49] LABS: BEDSIDE GLUCOSE 134 MG/DL (83-110)
[2017-07-28 16:00] LABS: BASO # 0.1 10^3/uL (0.0-0.2); BASO % 0.6 % (0.0-1.0); EOS # 0.4 10^3/uL (0.0-0.50); EOS % 4.3 % (0.0-3.0); HEMATOCRIT 37.2 % (42.0-52.0); HEMOGLOBIN 12.7 g/dl (14.0-18.0); IMMATURE GRANULOCYTE % 0.2 % (0-0); LYMPH # 1.7 10^3/uL (1.5-4.5); LYMPH % 18.8 % (24.0-44.0); MEAN CORPUSCULAR HEMOGLOBIN 30.5 pg (27.0-33.0); MEAN CORPUSCULAR HGB CONC 34.1 g/dl (32.0-36.5); MEAN CORPUSCULAR VOLUME 89.2 fl (80.0-96.0); MONO # 1.3 10^3/uL (0.0-0.8); MONO % 13.9 % (0.0-5.0); NEUTROPHILS # 5.8 10^3/uL (1.8-7.7); NEUTROPHILS % 62.2 % (36.0-66.0); PLATELET COUNT, AUTOMATED 205 10^3/uL (150-450); RED BLOOD COUNT 4.17 10^6/uL (4.30-6.10); RED CELL DISTRIBUTION WIDTH 12.4 % (11.5-14.5); WHITE BLOOD COUNT 9.3 10^3/uL (4.0-10.0)
[2017-07-28 16:14] LABS: ALBUMIN 4.4 GM/DL (3.2-5.2); ALBUMIN/GLOBULIN RATIO 1.26 (1.00-1.93); ALKALINE PHOSPHATASE 144 U/L (45-117); ANION GAP 8 MEQ/L (8-16); AST/SGOT 27 U/L (7-37); BILIRUBIN,DIRECT 0.1 MG/DL (0.0-0.2); BILIRUBIN,TOTAL 0.3 MG/DL (0.2-1.0); BLOOD UREA NITROGEN 37 MG/DL (7-18); CARBON DIOXIDE LEVEL 24 MEQ/L (21-32); CHLORIDE LEVEL 108 MEQ/L (98-107); CPK CREATINE PHOSPHOKINASE 100 U/L (39-308); CREATININE FOR GFR 1.62 MG/DL (0.70-1.30); ETHYL ALCOHOL (ETHANOL) < 0.003 % (0.000-0.010); GLOMERULAR FILTRATION RATE 44.7 (>42); GLUCOSE, FASTING 140 MG/DL (70-100); INR 1.04; POTASSIUM SERUM 4.6 MEQ/L (3.5-5.1); PROTHROMBIN TIME 13.7 SECONDS (12.4-14.5); SALICYLATE LEVEL < 1.7 MG/DL (5.0-30.0); SODIUM LEVEL 140 MEQ/L (136-145); TOTAL PROTEIN 7.9 GM/DL (6.4-8.2); TROPONIN I < 0.02 NG/ML (< 0.10)
[2017-07-28 16:20] LABS: ALT/SGPT 28 U/L (12-78); CK-MB VALUE MASS 1.1 NG/ML (0.0-3.6)
[2017-07-28 16:22] LABS: ACETAMINOPHEN LEVEL < 2.0 UG/ML (10.0-30.0)
[2017-07-28] MEDS ORDERED: PERCOCET 5MG/325MG TAB PO (17:45)
[2017-07-28] MEDS ORDERED: LORazepam 0.5 MG TAB PO (17:45)
[2017-07-28] MEDS: APIXABAN 5 MG TAB (ELIQUIS) PO (22:36)
[2017-07-28] MEDS: ATORVASTATIN 20 MG TAB PO (22:36)
[2017-07-28] MEDS: ASPIRIN 81 MG ENTERIC TAB PO (22:36)
[2017-07-29] MEDS: LATANOPROST 0.005% OPHTH SOLN 2.5 ML OU ×2 (00:40→20:23)
[2017-07-29 08:58] LABS: CHOLESTEROL LEVEL 133 MG/DL (<200); CHOLESTEROL RISK RATIO 2.078 (<5); HDL CHOLESTEROL 64 MG/DL (>40); LDL CHOLESTEROL 50.6 MG/DL (<100); NON-HDL-C 69 MG/DL; TRIGLYCERIDES LEVEL 92 MG/DL (<150)
[2017-07-29] MEDS ORDERED: amLODIPine 10 MG TAB PO (09:00)
[2017-07-29] MEDS: APIXABAN 5 MG TAB (ELIQUIS) PO ×2 (09:04→20:23)
[2017-07-29] MEDS: FAMOTIDINE 20 MG TAB PO (09:04)
[2017-07-29] MEDS ORDERED: SLF 3 ML SYR IV (11:15)
[2017-07-29] MEDS: SLF 3 ML SYR IV ×2 (12:03→20:23)
[2017-07-29] MEDS: ASPIRIN 81 MG ENTERIC TAB PO (20:23)
[2017-07-29] MEDS: ATORVASTATIN 20 MG TAB PO (20:23)
[2017-07-30 05:04] LABS: BASO # 0.1 10^3/uL (0.0-0.2); BASO % 0.8 % (0.0-1.0); EOS # 0.3 10^3/uL (0.0-0.50); EOS % 4.4 % (0.0-3.0); HEMATOCRIT 36.6 % (42.0-52.0); HEMOGLOBIN 12.4 g/dl (14.0-18.0); IMMATURE GRANULOCYTE % 0.3 % (0-0); LYMPH # 1.2 10^3/uL (1.5-4.5); MEAN CORPUSCULAR HEMOGLOBIN 30.4 pg (27.0-33.0); MEAN CORPUSCULAR HGB CONC 33.9 g/dl (32.0-36.5); MEAN CORPUSCULAR VOLUME 89.7 fl (80.0-96.0); MONO # 1.2 10^3/uL (0.0-0.8); MONO % 16.4 % (0.0-5.0); NEUTROPHILS # 4.5 10^3/uL (1.8-7.7); NEUTROPHILS % 61.1 % (36.0-66.0); PLATELET COUNT, AUTOMATED 193 10^3/uL (150-450); RED BLOOD COUNT 4.08 10^6/uL (4.30-6.10); RED CELL DISTRIBUTION WIDTH 12.3 % (11.5-14.5); WHITE BLOOD COUNT 7.3 10^3/uL (4.0-10.0)
[2017-07-30 05:27] LABS: ANION GAP 5 MEQ/L (8-16); BLOOD UREA NITROGEN 33 MG/DL (7-18); CARBON DIOXIDE LEVEL 30 MEQ/L (21-32); CHLORIDE LEVEL 106 MEQ/L (98-107); CREATININE FOR GFR 1.52 MG/DL (0.70-1.30); GLOMERULAR FILTRATION RATE 48.1 (>42); GLUCOSE, FASTING 96 MG/DL (70-100); POTASSIUM SERUM 4.2 MEQ/L (3.5-5.1); SODIUM LEVEL 141 MEQ/L (136-145)
[2017-07-30] MEDS: SLF 3 ML SYR IV ×3 (06:00→20:22)
[2017-07-30] MEDS: APIXABAN 5 MG TAB (ELIQUIS) PO ×2 (08:30→20:21)
[2017-07-30] MEDS: FAMOTIDINE 20 MG TAB PO (08:30)
[2017-07-30] MEDS ORDERED: amLODIPine 5 MG TAB PO (09:00)
[2017-07-30] MEDS: amLODIPine 5 MG TAB PO ×2 (12:02→18:09)
[2017-07-30] MEDS: hydrALAZINE INJ 20 MG/ML VIAL IV (12:02)
[2017-07-30] MEDS: ASPIRIN 81 MG ENTERIC TAB PO (20:21)
[2017-07-30] MEDS: LATANOPROST 0.005% OPHTH SOLN 2.5 ML OU (20:22)
[2017-07-30] MEDS: ATORVASTATIN 20 MG TAB PO (20:22)
[2017-07-31] MEDS: hydrALAZINE INJ 20 MG/ML VIAL IV (04:57)
[2017-07-31] MEDS: SLF 3 ML SYR IV ×3 (04:58→20:57)
[2017-07-31] MEDS: ISOSORBIDE MON. (IMDUR) 30 MG XR TAB PO (04:58)
[2017-07-31 05:15] LABS: BASO # 0.1 10^3/uL (0.0-0.2); BASO % 0.7 % (0.0-1.0); EOS # 0.4 10^3/uL (0.0-0.50); EOS % 5.2 % (0.0-3.0); HEMATOCRIT 37.9 % (42.0-52.0); HEMOGLOBIN 12.8 g/dl (14.0-18.0); IMMATURE GRANULOCYTE % 0.3 % (0-0); LYMPH # 1.3 10^3/uL (1.5-4.5); LYMPH % 17.1 % (24.0-44.0); MEAN CORPUSCULAR HEMOGLOBIN 30.4 pg (27.0-33.0); MEAN CORPUSCULAR HGB CONC 33.8 g/dl (32.0-36.5); MONO # 1.2 10^3/uL (0.0-0.8); MONO % 15.6 % (0.0-5.0); NEUTROPHILS # 4.6 10^3/uL (1.8-7.7); NEUTROPHILS % 61.1 % (36.0-66.0); PLATELET COUNT, AUTOMATED 194 10^3/uL (150-450); RED BLOOD COUNT 4.21 10^6/uL (4.30-6.10); RED CELL DISTRIBUTION WIDTH 12.4 % (11.5-14.5); WHITE BLOOD COUNT 7.5 10^3/uL (4.0-10.0)
[2017-07-31 05:38] LABS: ANION GAP 6 MEQ/L (8-16); BLOOD UREA NITROGEN 36 MG/DL (7-18); CARBON DIOXIDE LEVEL 28 MEQ/L (21-32); CHLORIDE LEVEL 107 MEQ/L (98-107); CREATININE FOR GFR 1.56 MG/DL (0.70-1.30); GLOMERULAR FILTRATION RATE 46.7 (>42); GLUCOSE, FASTING 113 MG/DL (70-100); POTASSIUM SERUM 4.2 MEQ/L (3.5-5.1); SODIUM LEVEL 141 MEQ/L (136-145)
[2017-07-31] MEDS: FAMOTIDINE 20 MG TAB PO (08:57)
[2017-07-31] MEDS: APIXABAN 5 MG TAB (ELIQUIS) PO ×2 (08:57→20:57)
[2017-07-31] MEDS: amLODIPine 10 MG TAB PO (08:57)
[2017-07-31] MEDS ORDERED: amLODIPine 5 MG TAB PO (09:00)
[2017-07-31] MEDS ORDERED: LIDOCAINE VISCOUS 2% SOLN 15ML UDC As Ordered (15:05)
[2017-07-31] MEDS ORDERED: CETACAINE SPRAY 5GM As Ordered (15:05)
[2017-07-31] MEDS ORDERED: fentaNYL 100 MCG/2 ML INJECTION (J3010) As Ordered (17:19)
[2017-07-31] MEDS ORDERED: MIDAZOLAM INJ 2 MG/2 ML VIAL (J2250) As Ordered (17:19)
[2017-07-31] MEDS ORDERED: PHENYLephrine HCL 500 MCG/5 ML (100MCG/ML) SYRINGE (J2370) As Ordered (17:42)
[2017-07-31] MEDS: LR 1,000 ML IV (18:30)
[2017-07-31] MEDS ORDERED: fentaNYL 100 MCG/2 ML INJECTION (J3010) IV (18:30)
[2017-07-31] MEDS ORDERED: ONDANSETRON 4MG/2ML VIAL (J2405) IV (18:30)
[2017-07-31] MEDS: LATANOPROST 0.005% OPHTH SOLN 2.5 ML OU (20:57)
[2017-07-31] MEDS: ASPIRIN 81 MG ENTERIC TAB PO (20:57)
[2017-07-31] MEDS: ATORVASTATIN 20 MG TAB PO (20:57)
[2017-08-01] MEDS: ACETAMINOPHEN TAB 650MG DOSE (2X325MG) PO (01:34)
[2017-08-01] MEDS: SLF 3 ML SYR IV ×3 (05:40→21:26)
[2017-08-01 05:41] LABS: BASO # 0.1 10^3/uL (0.0-0.2); BASO % 0.3 % (0.0-1.0); EOS # 0.1 10^3/uL (0.0-0.50); EOS % 0.8 % (0.0-3.0); HEMATOCRIT 33.4 % (42.0-52.0); HEMOGLOBIN 11.2 g/dl (14.0-18.0); IMMATURE GRANULOCYTE # 0.1 10^3/uL (0-0); IMMATURE GRANULOCYTE % 0.6 % (0-0); LYMPH % 6.2 % (24.0-44.0); MEAN CORPUSCULAR HGB CONC 33.5 g/dl (32.0-36.5); MEAN CORPUSCULAR VOLUME 92.5 fl (80.0-96.0); MONO # 1.9 10^3/uL (0.0-0.8); NEUTROPHILS # 12.5 10^3/uL (1.8-7.7); NEUTROPHILS % 80.1 % (36.0-66.0); PLATELET COUNT, AUTOMATED 153 10^3/uL (150-450); RED BLOOD COUNT 3.61 10^6/uL (4.30-6.10); RED CELL DISTRIBUTION WIDTH 12.3 % (11.5-14.5); WHITE BLOOD COUNT 15.6 10^3/uL (4.0-10.0)
[2017-08-01 06:22] LABS: ANION GAP 8 MEQ/L (8-16); BLOOD UREA NITROGEN 36 MG/DL (7-18); CALCIUM LEVEL 8.6 MG/DL (8.8-10.2); CARBON DIOXIDE LEVEL 23 MEQ/L (21-32); CHLORIDE LEVEL 110 MEQ/L (98-107); CREATININE FOR GFR 1.64 MG/DL (0.70-1.30); GLOMERULAR FILTRATION RATE 44.1 (>42); GLUCOSE, FASTING 91 MG/DL (70-100); SODIUM LEVEL 141 MEQ/L (136-145)
[2017-08-01 07:36] LABS: C REACTIVE PROTEIN QUANTITATIV 1.54 MG/DL (0.00-0.30)
[2017-08-01] MEDS: FAMOTIDINE 20 MG TAB PO (08:15)
[2017-08-01] MEDS: APIXABAN 5 MG TAB (ELIQUIS) PO ×2 (08:15→21:25)
[2017-08-01] MEDS: amLODIPine 10 MG TAB PO (08:15)
[2017-08-01] MEDS ORDERED: CLOPIDOGREL 75 MG TAB PO (09:00)
[2017-08-01] MEDS: BACITRACIN OINT 30GM TOP ×2 (12:48→21:29)
[2017-08-01] MEDS ORDERED: LORazepam 1 MG TAB As Ordered (16:50)
[2017-08-01] MEDS: LORazepam 1 MG TAB PO (16:50)
[2017-08-01] MEDS ORDERED: RIVAROXABAN 20 MG TAB (XARELTO) PO (18:00)
[2017-08-01] MEDS: LATANOPROST 0.005% OPHTH SOLN 2.5 ML OU (21:25)
[2017-08-01] MEDS: ATORVASTATIN 20 MG TAB PO (21:25)
[2017-08-01] MEDS: ASPIRIN 81 MG ENTERIC TAB PO (21:25)
[2017-08-02] MEDS: SLF 3 ML SYR IV (04:47)
[2017-08-02 05:49] LABS: BASO % 0.3 % (0.0-1.0); EOS # 0.8 10^3/uL (0.0-0.50); EOS % 6.5 % (0.0-3.0); HEMATOCRIT 34.1 % (42.0-52.0); HEMOGLOBIN 11.6 g/dl (14.0-18.0); IMMATURE GRANULOCYTE # 0.1 10^3/uL (0-0); IMMATURE GRANULOCYTE % 0.4 % (0-0); LYMPH # 1.1 10^3/uL (1.5-4.5); LYMPH % 9.3 % (24.0-44.0); MEAN CORPUSCULAR HEMOGLOBIN 30.5 pg (27.0-33.0); MEAN CORPUSCULAR VOLUME 89.7 fl (80.0-96.0); MONO # 1.6 10^3/uL (0.0-0.8); MONO % 13.8 % (0.0-5.0); NEUTROPHILS # 8.1 10^3/uL (1.8-7.7); NEUTROPHILS % 69.7 % (36.0-66.0); PLATELET COUNT, AUTOMATED 152 10^3/uL (150-450); RED CELL DISTRIBUTION WIDTH 12.2 % (11.5-14.5); WHITE BLOOD COUNT 11.6 10^3/uL (4.0-10.0)
[2017-08-02 05:57] LABS: ANION GAP 8 MEQ/L (8-16); BLOOD UREA NITROGEN 30 MG/DL (7-18); CALCIUM LEVEL 8.7 MG/DL (8.8-10.2); CARBON DIOXIDE LEVEL 24 MEQ/L (21-32); CHLORIDE LEVEL 110 MEQ/L (98-107); GLOMERULAR FILTRATION RATE 52.9 (>42); GLUCOSE, FASTING 96 MG/DL (70-100); POTASSIUM SERUM 3.8 MEQ/L (3.5-5.1); SODIUM LEVEL 142 MEQ/L (136-145)
[2017-08-02] MEDS: LORazepam 1 MG TAB PO (07:36)
[2017-08-02] MEDS: amLODIPine 10 MG TAB PO (08:51)
[2017-08-02] MEDS: CLOPIDOGREL 75 MG TAB PO (08:51)
[2017-08-02] MEDS: FAMOTIDINE 20 MG TAB PO (08:51)
[2017-08-02] MEDS: APIXABAN 5 MG TAB (ELIQUIS) PO (08:51)
== END 2017-08-02 10:00 | disposition home or self-care (01) | DRG 66 ==
LOC: M ED 14:48 → M ED INP 17:32 → M PCU 21:48
PROC: B24BZZ4 Ultrasonography of Heart with Aorta, Transesophageal (ICD-10-PCS; principal; 2017-07-31 17:00)
DX: I63.9 Cerebral infarction, unspecified (principal); R47.01 Aphasia; I25.10 Atherosclerotic heart disease of native coronary artery without angina pectoris; I48.0 Paroxysmal atrial fibrillation; N18.3 Chronic kidney disease, stage 3 (moderate); I12.9 Hypertensive chronic kidney disease with stage 1 through stage 4 chronic kidney disease, or unspecified chronic kidney disease; K21.9 Gastro-esophageal reflux disease without esophagitis; Z85.46 Personal history of malignant neoplasm of prostate; I25.2 Old myocardial infarction; Z95.5 Presence of coronary angioplasty implant and graft; Z95.2 Presence of prosthetic heart valve; Z79.01 Long term (current) use of anticoagulants; Z87.891 Personal history of nicotine dependence; Z86.73 Personal history of transient ischemic attack (TIA), and cerebral infarction without residual deficits; Z92.3 Personal history of irradiation; Z88.8 Allergy status to other drugs, medicaments and biological substances

== ENCOUNTER 2017-08-22 10:56 | Observation (INO) | payer MEDICARE ==
[2017-08-22 11:39] LABS: BASO # 0.1 10^3/uL (0.0-0.2); BASO % 0.5 % (0.0-1.0); EOS # 0.2 10^3/uL (0.0-0.50); EOS % 2.4 % (0.0-3.0); HEMATOCRIT 37.2 % (42.0-52.0); HEMOGLOBIN 12.6 g/dl (14.0-18.0); IMMATURE GRANULOCYTE % 0.3 % (0-3.0); LYMPH # 1.2 10^3/uL (1.5-4.5); LYMPH % 12.6 % (24.0-44.0); MEAN CORPUSCULAR HEMOGLOBIN 30.7 pg (27.0-33.0); MEAN CORPUSCULAR HGB CONC 33.9 g/dl (32.0-36.5); MEAN CORPUSCULAR VOLUME 90.7 fl (80.0-96.0); MONO # 1.3 10^3/uL (0.0-0.8); MONO % 13.7 % (0.0-5.0); NEUTROPHILS # 6.5 10^3/uL (1.8-7.7); NEUTROPHILS % 70.5 % (36.0-66.0); PLATELET COUNT, AUTOMATED 224 10^3/uL (150-450); RED CELL DISTRIBUTION WIDTH 12.3 % (11.5-14.5); WHITE BLOOD COUNT 9.2 10^3/uL (4.0-10.0)
[2017-08-22 11:50] LABS: INR 1.26; PROTHROMBIN TIME 16.1 SECONDS (12.4-14.5)
[2017-08-22 11:50] LABS: BEDSIDE GLUCOSE 107 MG/DL (83-110)
[2017-08-22 11:51] LABS: PARTIAL THROMBOPLASTIN TIME 34.9 SECONDS (26.8-37.9)
[2017-08-22 12:06] LABS: ANION GAP 6 MEQ/L (8-16); BLOOD UREA NITROGEN 34 MG/DL (7-18); CALCIUM LEVEL 9.5 MG/DL (8.8-10.2); CARBON DIOXIDE LEVEL 28 MEQ/L (21-32); CHLORIDE LEVEL 104 MEQ/L (98-107); CPK CREATINE PHOSPHOKINASE 70 U/L (39-308); GLOMERULAR FILTRATION RATE 48.8 (>42); GLUCOSE, FASTING 101 MG/DL (70-100); MB/CK RELATIVE INDEX 1.42 (< OR =4); POTASSIUM SERUM 5.1 MEQ/L (3.5-5.1); SODIUM LEVEL 138 MEQ/L (136-145); TROPONIN I < 0.02 NG/ML (< 0.10)
[2017-08-22] MEDS ORDERED: ACETAMINOPHEN TAB 650MG DOSE (2X325MG) PO (13:45)
[2017-08-22] MEDS ORDERED: FAMOTIDINE 20 MG TAB PO (13:45)
[2017-08-22] MEDS ORDERED: LORazepam 0.5 MG TAB PO (13:45)
[2017-08-22] MEDS ORDERED: ONDANSETRON 4MG/2ML VIAL (J2405) IV (13:45)
[2017-08-22] MEDS ORDERED: NITROGLYCERIN 0.4 MG SUBL TABLET SL (13:45)
[2017-08-22] MEDS: ATORVASTATIN 20 MG TAB PO (20:50)
[2017-08-22] MEDS: APIXABAN 5 MG TAB (ELIQUIS) PO (21:00)
[2017-08-22] MEDS: LATANOPROST 0.005% OPHTH SOLN 2.5 ML OU (21:00)
[2017-08-23 07:43] LABS: HEMATOCRIT 34.9 % (42.0-52.0); MEAN CORPUSCULAR HEMOGLOBIN 30.5 pg (27.0-33.0); MEAN CORPUSCULAR HGB CONC 34.4 g/dl (32.0-36.5); MEAN CORPUSCULAR VOLUME 88.8 fl (80.0-96.0); PLATELET COUNT, AUTOMATED 208 10^3/uL (150-450); RED BLOOD COUNT 3.93 10^6/uL (4.30-6.10); RED CELL DISTRIBUTION WIDTH 12.1 % (11.5-14.5); WHITE BLOOD COUNT 6.3 10^3/uL (4.0-10.0)
[2017-08-23 07:59] LABS: ALBUMIN 3.6 GM/DL (3.2-5.2); ALKALINE PHOSPHATASE 93 U/L (45-117); ALT/SGPT 25 U/L (12-78); ANION GAP 5 MEQ/L (8-16); AST/SGOT 19 U/L (7-37); BILIRUBIN,TOTAL 0.5 MG/DL (0.2-1.0); BLOOD UREA NITROGEN 30 MG/DL (7-18); CALCIUM LEVEL 8.9 MG/DL (8.8-10.2); CARBON DIOXIDE LEVEL 27 MEQ/L (21-32); CHLORIDE LEVEL 107 MEQ/L (98-107); CREATININE FOR GFR 1.38 MG/DL (0.70-1.30); GLOMERULAR FILTRATION RATE 53.8 (>42); GLUCOSE, FASTING 116 MG/DL (70-100); MAGNESIUM LEVEL 2.5 MG/DL (1.8-2.4); POTASSIUM SERUM 4.2 MEQ/L (3.5-5.1); SODIUM LEVEL 139 MEQ/L (136-145); TOTAL PROTEIN 7.2 GM/DL (6.4-8.2)
[2017-08-23] MEDS: SERTRALINE HCL 50 MG TAB PO (08:21)
[2017-08-23] MEDS: CLOPIDOGREL 75 MG TAB PO (08:21)
[2017-08-23] MEDS: amLODIPine 10 MG TAB PO (08:22)
[2017-08-23] MEDS: APIXABAN 5 MG TAB (ELIQUIS) PO ×2 (08:22→22:09)
[2017-08-23] MEDS: LATANOPROST 0.005% OPHTH SOLN 2.5 ML OU (22:09)
[2017-08-23] MEDS: ATORVASTATIN 20 MG TAB PO (22:09)
[2017-08-24 06:18] LABS: HEMATOCRIT 36.7 % (42.0-52.0); HEMOGLOBIN 12.8 g/dl (14.0-18.0); MEAN CORPUSCULAR HEMOGLOBIN 30.7 pg (27.0-33.0); MEAN CORPUSCULAR HGB CONC 34.9 g/dl (32.0-36.5); PLATELET COUNT, AUTOMATED 203 10^3/uL (150-450); RED BLOOD COUNT 4.17 10^6/uL (4.30-6.10); RED CELL DISTRIBUTION WIDTH 12.2 % (11.5-14.5)
[2017-08-24 06:31] LABS: ALBUMIN 3.4 GM/DL (3.2-5.2); ALBUMIN/GLOBULIN RATIO 0.94 (1.00-1.93); ALKALINE PHOSPHATASE 100 U/L (45-117); ALT/SGPT 21 U/L (12-78); ANION GAP 6 MEQ/L (8-16); AST/SGOT 18 U/L (7-37); BILIRUBIN,TOTAL 0.5 MG/DL (0.2-1.0); BLOOD UREA NITROGEN 28 MG/DL (7-18); CARBON DIOXIDE LEVEL 26 MEQ/L (21-32); CHLORIDE LEVEL 108 MEQ/L (98-107); CREATININE FOR GFR 1.44 MG/DL (0.70-1.30); GLOMERULAR FILTRATION RATE 51.2 (>42); GLUCOSE, FASTING 99 MG/DL (70-100); MAGNESIUM LEVEL 2.2 MG/DL (1.8-2.4); SODIUM LEVEL 140 MEQ/L (136-145)
[2017-08-24] MEDS: CLOPIDOGREL 75 MG TAB PO (09:23)
[2017-08-24] MEDS: APIXABAN 5 MG TAB (ELIQUIS) PO (09:23)
[2017-08-24] MEDS: amLODIPine 10 MG TAB PO (09:24)
[2017-08-24] MEDS: LISINOPRIL 10 MG TAB PO (09:24)
[2017-08-24] MEDS: SERTRALINE HCL 50 MG TAB PO (09:24)
== END 2017-08-24 12:43 | disposition home or self-care (01) ==
LOC: M MSPAV 08-23 17:50 → M ED 10:56 → M ED INP 13:32
DX: I63.9 Cerebral infarction, unspecified (principal); I69.322 Dysarthria following cerebral infarction; I69.320 Aphasia following cerebral infarction; I70.0 Atherosclerosis of aorta; I48.0 Paroxysmal atrial fibrillation; I25.10 Atherosclerotic heart disease of native coronary artery without angina pectoris; I12.9 Hypertensive chronic kidney disease with stage 1 through stage 4 chronic kidney disease, or unspecified chronic kidney disease; N18.3 Chronic kidney disease, stage 3 (moderate); F41.9 Anxiety disorder, unspecified; F32.9 Major depressive disorder, single episode, unspecified; K21.9 Gastro-esophageal reflux disease without esophagitis; Z85.46 Personal history of malignant neoplasm of prostate; Z92.3 Personal history of irradiation; N30.41 Irradiation cystitis with hematuria; Z95.2 Presence of prosthetic heart valve; Z95.5 Presence of coronary angioplasty implant and graft; Z95.1 Presence of aortocoronary bypass graft; Z79.899 Other long term (current) drug therapy; Z79.01 Long term (current) use of anticoagulants; Z79.02 Long term (current) use of antithrombotics/antiplatelets; Z88.8 Allergy status to other drugs, medicaments and biological substances; Z87.891 Personal history of nicotine dependence
CPT/HCPCS: 70551

== ENCOUNTER → 2017-09-25 | Outpatient (CLI) | payer MEDICARE ==
[2017-09-25 11:16] LABS: PROSTATIC SPECIFIC AG MONITOR 3.62 NG/ML (< 4.0)
== END ==
LOC: M SMT 08:25
DX: C61 Malignant neoplasm of prostate (principal)
CPT/HCPCS: 84153

== ENCOUNTER → 2018-04-10 | Outpatient (CLI) | payer MEDICARE ==
[2018-04-10 18:57] LABS: PSA SCREENING 3.73 NG/ML (< 4.0)
== END ==
LOC: M SMT 11:39
DX: C61 Malignant neoplasm of prostate (principal)
CPT/HCPCS: 84153

== ENCOUNTER → 2018-04-10 | Outpatient (REF) | payer MEDICARE ==
[2018-04-12 16:32] LABS: FERRITIN 66 NG/ML (26-388); IRON (FE) 62 UG/DL (65-175); PERCENT SATURATION 18.7 % (19.7-50.0); TOTAL IRON BINDING CAPACITY 332 UG/DL (250-450)
== END ==
LOC: M LAB REF 04-11 13:58
DX: D50.9 Iron deficiency anemia, unspecified (principal)
CPT/HCPCS: 83550

== ENCOUNTER → 2018-10-15 | Outpatient (CLI) | payer MEDICARE ==
[~2018-10-15] MED LIST changes: +ACET1TAB55 PO; +ACET500T15 PO; -ACET50TAOT PO; -AMLO10TA2 PO; +AMLO10TA5 PO; +ASPI-222 PO; -ASPI325T28 PO; +CLOP75TA2 PO; +LISI10TA4 PO; +METO-346 PO; -METO25TAB PO; +SERT-155 PO
== END ==
LOC: M SMT 08:58
PROVIDERS: ATTEND Urology
DX: C61 Malignant neoplasm of prostate (principal)
CPT/HCPCS: 36415; G0103

== ENCOUNTER → 2019-05-10 | Outpatient (CLI) | payer MEDICARE ==
[~2019-05-10] MED LIST changes: -ASPI-222 PO; +ASPI-527 PO; -SERT-155 PO; +SERT50TA29 PO
== END ==
LOC: M SMT 13:02
PROVIDERS: ATTEND Urology
DX: C61 Malignant neoplasm of prostate (principal)

== ENCOUNTER → 2019-07-30 | Outpatient (REF) | payer MEDICARE ==
[~2019-07-30] MED LIST changes: -LORA0.5T11 PO; +LORA0.5T5 PO
[2019-07-31 19:44] LABS: PHOSPHORUS LEVEL 3.8 MG/DL (2.5-4.9)
[2019-07-31 20:02] LABS: PTH INTACT 51.6 PG/ML (18.5-88.0)
== END ==
LOC: M LAB REF 17:34
PROVIDERS: ATTEND Internal Medicine
DX: N18.3 Chronic kidney disease, stage 3 (moderate) (principal)

== ENCOUNTER → 2019-11-08 | Outpatient (CLI) | payer MEDICARE | LOC: M PLALAB 13:25 | PROVIDERS: ATTEND Urology | DX: C61 Malignant neoplasm of prostate (principal) ==

== ENCOUNTER → 2019-11-14 | Outpatient (REF) | payer MEDICARE | LOC: M LAB REF 16:22 | PROVIDERS: ATTEND Internal Medicine | DX: R06.02 Shortness of breath (principal) ==

== ENCOUNTER → 2020-01-06 | Outpatient (REF) | payer MEDICARE ==
[~2020-01-06] MED LIST changes: -AMLO10TA5 PO; +AMLO1TAB25 PO; -ASPI81TA85 PO; +ASPI81TA86 PO
[2020-01-07 15:38] LABS: PERCENT SATURATION 15.1 % (19.7-50.0)
== END ==
LOC: M LAB REF 12:25
PROVIDERS: ATTEND Internal Medicine
DX: N18.3 Chronic kidney disease, stage 3 (moderate) (principal); D64.9 Anemia, unspecified

== ENCOUNTER → 2020-03-02 | Outpatient (CLI) | payer MEDICARE ==
--- NOTE | 2020-03-30 09:20 | REP ---
RENAL ULTRASOUND CLINICAL: Chronic renal disease, stage 4. Rule out renal arterial stenosis. TECHNIQUE: Real-time riley scale and color Doppler evaluation using curved array transducer. FINDINGS: The bilateral kidneys demonstrate increased central sinus fat consistent with medical renal disease. There is no evidence for hydronephrosis, nephrolithiasis, cystic or renal mass lesion. Right kidney measures 9.7 x 4.6 x 4.2 cm. Left kidney measures 10.1 x 4.0 x 4.5 cm. Bladder is grossly unremarkable. Color Doppler evaluation is somewhat limited to interposed bowel gas limiting evaluation of the renal arteries and renal arterial velocities as well as renal aortic ratios could not be obtained. Right kidney resistive indices: 0.79-0.84. Right kidney acceleration times: 0.031-0.039. Left kidney resistive indices: 0.85. Left kidney acceleration times: 0.025-0.042. IMPRESSION: * Kidneys demonstrate increased central sinus fat consistent with chronic medical renal disease and no evidence for hydronephrosis. * Doppler interrogation is limited due to overlying bowel gas. Increased intrarenal resistive indices suggest small vessel disease consistent with chronic medical renal disease. Evaluation of the main renal arteries for stenosis is limited and may warrant MRA or CTA evaluation. MTDD
== END ==
LOC: M RAD 06:17
PROVIDERS: ATTEND Internal Medicine Nephrology
DX: N18.4 Chronic kidney disease, stage 4 (severe) (principal); I70.1 Atherosclerosis of renal artery

== ENCOUNTER → 2020-05-27 | Outpatient (CLI) | payer MEDICARE ==
[2020-05-30 06:11] LABS: PSA % FREE 6.7 % (.); PSA FREE 0.42 ng/mL; PSA TOTAL 6.3 ng/mL (0.0-4.0)
== END ==
LOC: M PLALAB 13:25
PROVIDERS: ATTEND Urology
DX: R97.20 Elevated prostate specific antigen [PSA] (principal); Z12.5 Encounter for screening for malignant neoplasm of prostate

== ENCOUNTER → 2020-06-24 | Outpatient (CLI) | payer MEDICARE ==
[2020-06-24 13:42] LABS: BASO # 0.1 10^3/uL (0.0-0.2); BASO % 0.6 % (0.0-1.0); EOS # 0.2 10^3/uL (0.0-0.5); EOS % 2.7 % (0.0-3.0); HEMATOCRIT 34.4 % (42.0-52.0); LYMPH # 0.9 10^3/uL (1.5-5.0); LYMPH % 9.9 % (24.0-44.0); MEAN CORPUSCULAR HEMOGLOBIN 28.9 pg (27.0-33.0); MEAN CORPUSCULAR VOLUME 90.3 fl (80.0-96.0); MONO # 1.2 10^3/uL (0.0-0.8); MONO % 13.7 % (0.0-5.0); NEUTROPHILS # 6.3 10^3/uL (1.5-8.5); NEUTROPHILS % 72.8 % (36.0-66.0); PLATELET COUNT, AUTOMATED 217 10^3/uL (150-450); RED BLOOD COUNT 3.81 10^6/uL (4.30-6.10); WHITE BLOOD COUNT 8.6 10^3/uL (4.0-10.0)
[2020-06-24 14:11] LABS: CALCIUM LEVEL 9.5 MG/DL (8.8-10.2); CREATININE FOR GFR 2.55 MG/DL (0.70-1.30); GLOMERULAR FILTRATION RATE 26.3 (>42); POTASSIUM SERUM 4.3 MEQ/L (3.5-5.1)
== END ==
LOC: M PLALAB 11:32
PROVIDERS: ATTEND Internal Medicine Cardiovascular Disease
DX: I25.119 Atherosclerotic heart disease of native coronary artery with unspecified angina pectoris (principal)

== ENCOUNTER → 2020-07-02 | Outpatient (CLI) | payer MEDICARE ==
[2020-07-02 16:19] LABS: CREATININE FOR GFR 2.25 MG/DL (0.70-1.30); GLOMERULAR FILTRATION RATE 30.3 (>42)
== END ==
LOC: M PLALAB 12:35
PROVIDERS: ATTEND Internal Medicine Cardiovascular Disease
DX: R82.998 Other abnormal findings in urine (principal)

== ENCOUNTER → 2020-09-24 | Outpatient (CLI) | payer MEDICARE ==
[~2020-09-24] MED LIST changes: -LISI-538 PO; +LISI10TA22 PO; -LISI10TA4 PO; +LISI20TA33 PO
== END ==
LOC: M LAB 10:46
PROVIDERS: ATTEND Urology
DX: C61 Malignant neoplasm of prostate (principal)

== ENCOUNTER 2020-12-08 19:43 | Emergency (ER) | payer MEDICARE, BC ==
[~2020-12-08] VITALS: Ht 172.7 cm; Wt 68.5 kg
[2020-12-08] MEDS ORDERED: LIDOCAINE 2% 5ML JELLY UROJET TOP ONE (21:15)
[2020-12-09 02:15] VITALS: BP 154/68
[2020-12-10] MEDS ORDERED: D32000TA PO (00:52)
[2020-12-10] MEDS ORDERED: ROSU40TA4 PO (00:52)
[2020-12-10] MEDS ORDERED: XALA0.007 OU (00:52)
[2020-12-10] MEDS ORDERED: CALC1CAP31 PO (00:52)
[2020-12-10] MEDS ORDERED: ATIV1TAB10 PO (00:52)
[2020-12-10] MEDS ORDERED: ZOLO100T PO (00:52)
[2020-12-10] MEDS ORDERED: PANT40TA29 PO (00:52)
[2020-12-10] MEDS ORDERED: FURO20TA2 PO (00:52)
== END 2020-12-09 03:20 | disposition home or self-care (01) ==
LOC: M ED 19:43
DX: R31.9 Hematuria, unspecified (principal); R33.9 Retention of urine, unspecified; I48.91 Unspecified atrial fibrillation; R51.9 Headache, unspecified; I10 Essential (primary) hypertension; K21.9 Gastro-esophageal reflux disease without esophagitis; N18.30 Chronic kidney disease, stage 3 unspecified; F41.9 Anxiety disorder, unspecified; F32.9 Major depressive disorder, single episode, unspecified; Z95.1 Presence of aortocoronary bypass graft; Z95.4 Presence of other heart-valve replacement; Z87.891 Personal history of nicotine dependence; Z79.02 Long term (current) use of antithrombotics/antiplatelets; Z79.82 Long term (current) use of aspirin; Z79.899 Other long term (current) drug therapy; Z88.8 Allergy status to other drugs, medicaments and biological substances

== ENCOUNTER 2020-12-09 19:10 | Inpatient (IN) | payer BC, MEDICARE ==
[~2020-12-09] VITALS: Ht 172.7 cm; Wt 65.0 kg
[2020-12-09] MEDS ORDERED: NS 500 ML IV ONE (19:40)
[2020-12-09 20:30] LABS: BASO % 0.1 % (0.0-1.0); HEMATOCRIT 30.3 % (42.0-52.0); HEMOGLOBIN 10.2 g/dl (13.5-17.5); LYMPH # 0.5 10^3/uL (1.5-5.0); LYMPH % 3.1 % (24.0-44.0); MEAN CORPUSCULAR HEMOGLOBIN 31.3 pg (27.0-33.0); MEAN CORPUSCULAR HGB CONC 33.7 g/dl (32.0-36.5); MEAN CORPUSCULAR VOLUME 92.9 fl (80.0-96.0); MONO % 6.3 % (2.0-8.0); NEUTROPHILS # 14.6 10^3/uL (1.5-8.5); NEUTROPHILS % 89.8 % (36.0-66.0); PLATELET COUNT, AUTOMATED 195 10^3/uL (150-450); RED BLOOD COUNT 3.26 10^6/uL (4.30-6.10); WHITE BLOOD COUNT 16.2 10^3/uL (4.0-10.0)
[2020-12-09] MEDS: LATANOPROST 0.005% OPHTH SOLN 2.5 ML OU SCH (21:00)
[2020-12-09] MEDS: BRIMONIDINE 0.1% OPHTH SOLN 5 ML OU SCH (21:00)
[2020-12-09] MEDS: TIMOLOL MALEATE 0.5% OPHTH SOLN 5 ML OU SCH (21:00)
[2020-12-09] MEDS ORDERED: MAALOX 30 ML SUSP *UDC PO PRN (23:50)
[2020-12-09] MEDS ORDERED: MOM 30ML SUSPENSION UDC PO PRN (23:50)
[2020-12-09] MEDS ORDERED: NS 1,000 ML IV SCH (23:50)
[2020-12-09] MEDS ORDERED: ACETAMINOPHEN TAB 650MG DOSE (2X325MG) PO PRN (23:50)
--- NOTE | 2020-12-09 23:51 | HPEPDOC ---
[facility] Medical History & Physical Date of Admission Dec 09, 2020 Date of Service: Dec 09, 2020 Primary Care Physician: Arabella Ferrell Attending Physician: ANGELINA MITTAL MD History and Physical TIME OF SERVICE: 11:56pm CHIEF COMPLAINT: abdominal pain HISTORY OF PRESENT ILLNESS: , a 75 yr old M, initially presented to the ER yesterday w c/o difficulties urinating and passing blood clots which he attributed to radiation cystitis; a 3 way gracia was placed and the bladder was irrigated and he was discharged home with instructions to f/u w Urology and his PCP; today he developed severe cramping lower abdominal pain and urinary retention bc his gracia was obstructed with blood clots. He denied having f/c/n/v abdominal pain or back pain. After irrigation he produced 500ml of dark red urine. DEMARCUS Perez discussed the case with who will see the patient in the morning. REVIEW OF SYSTEMS: 12-point review of systems negative except as listed in HPI PAST MEDICAL/ SURGICAL HISTORY: Hx of A Fib s/p watchman procedure, CAD/CABG x 2 (most recent stent placed in Jun at [facility]), Porcine AVR, Prostate cancer s/p prostatectomy and radiation tx complicated by radiation cystitis, CVAs (Left parietal lobe, bilateral cerebellar lobes, right temporal lobe), Essential HTN / chronic small vessel ischemic disease, DLP, GERD, CKD3, Anxiety /Depression, Resection of SCC, Resection of adenomatous colonic polyp SOCIAL HISTORY: former smoker / drinks alcohol socially / lives with FAMILY HISTORY: Father had DC at 62 yrs ALLERGIES: Please see below. HOME MEDICATIONS: Please see below. PHYSICAL EXAMINATION: Vital Signs Date Time Temp Pulse Resp B/P (MAP) Pulse Ox O2 Delivery O2 Flow Rate FiO2 12/09/20 19:10 97.7 76 18 157/72 (100) 97 Room Air GENERAL APPEARANCE: well-nourished and developed/ NAD HEENT: EOMI /no scleral icterus / MMM &P / has dressings covering right side of face (per had SCC resection earlier on today) CARDIOVASCULAR: post sternotomy scar / RRR/ NMRG/ radial pulses not bounding LUNGS: CTAB on RA ABDOMEN: contour convex / soft & NT w palpation MUSCULOSKELETAL: CECILIA x 4 extremities INTEGUMENT: not flushed diaphoretic or pale NEUROLOGICAL: CN 2-12 grossly intact/ speech not dysarthric PSYCHIATRIC: A&O x 3 /able to understand and follow all commands LABORATORY DATA: POC Glucose (Misc Panel) 162H, POC Sodium (Misc Panel) 137, POC Potassium (Misc Panel) 4.3, POC Chloride (Misc Panel) 102, POC Total CO2 (Misc Panel) 25.0, POC Blood Urea Nitrogen (Misc Panel 44H, POC Ionized Calcium (Misc Panel) 5.3, POC Creatinine (Misc Panel) 2.8H, POC Hematocrit (Misc Panel) 31.0L IMAGING: n/a MICROBIOLOGY: respiratory panel neg ASSESSMENT: is a 75 yr old w CAD/CABG, Porcine AV, Prostate cancer complicated by radiation cystitis, CVAs, Essential HTN, DLP, GERD, CKD3 & Anxiety /Depression who is admitted for management of anemia 2/2 hematuria. PLAN: 1 Anemia 2/2 Hematuria / Acute on Chronic Radiation cystitis Plan: admit to [facility] / c/w CBI / will give 1 dose of Ceftriaxone & keep him NPO w IVF pending possible cystoscopy by / trend Hg / f/u coags, type & screen and iron studies 2 Mild Leukocytosis Likely reactive The UA done yesterday was + for WBC, blood and RBCs but for nitrites, or leuk esterase Plan: f/u CBC & monitor vitals 3 CAD/CABG x 2 / DLP He is on Plavix alone & had a stent placed in Jun; he is not sure about the type of stent or location Plan: c/w Plavix pending records from [facility] / he is not taking ASA / rosuvastatin nitroglycerine PRN 4 Prostate cancer s/p prostatectomy and radiation tx complicated by radiation cystitis Plan: request records from [facility] 5 CVAs (Left parietal lobe, bilateral cerebellar lobes, right temporal lobe) Plan: rosuvastatin & Plavix 6 CKD3 Plan: f/u BMP / calcitriol 7 Essential HTN Plan: lasix 8 GERD Plan: PPI 09 Anxiety /Depression Plan: lorazepam, sertraline Despite a Nia Score 7 points (pharmacological px indicated) will hold off starting DVT Px bc of the acute anemia and hematuria and order SCDs instead Dispo: home after at least 2 midnights stay Home Medications Scheduled Brimonidine Tartrate/Timolol (Combigan 0.2%-0.5% Eye Drops) 1 Elise Elise, 1 DROP OU BID Calcitriol (Calcitriol) 0.25 Mcg Capsule, 0.25 MCG PO DAILY Cholecalciferol (Vitamin D3) (Vitamin D3) 50 Mcg Tablet, 50 MCG PO DAILY Clopidogrel Bisulfate (Clopidogrel) 75 Mg Tab, 75 MG PO DAILY Furosemide (Furosemide) 20 Mg Tablet, 20 MG PO BID Latanoprost (Xalatan) 0.005% 2.5ML Drops, 1 DROP OU QHS Pantoprazole Sodium (Pantoprazole Sodium) 40 Mg Tablet.dr, 40 MG PO DAILY Rosuvastatin Calcium (Rosuvastatin Calcium) 40 Mg Tablet, 40 MG PO QHS Sertraline Hcl (Zoloft) 100 Mg Tablet, 100 MG PO DAILY Scheduled PRN Acetaminophen (Acetaminophen) 325 Mg Tab, 650 MG PO Q4H PRN for PAIN Lorazepam (Ativan) 0.5 Mg Tablet, 0.5 MG PO Q4H PRN for ANXIETY/SHORTNESS OF BREATH Nitroglycerin (Nitrostat) 0.4 Mg Subl, 0.4 MG SL NITRO PRN for CHEST PAIN Allergies Coded Allergies: prednisone (Verified Allergy, Unknown, 12/08/20) A-FIB/CHADSVASC A-FIB History Current/History of A-Fib/PAF?: Yes Current PO Anticoag Therapy: No Treatment Treatment ordered: NONE Other anticoagulant ordered: had watchman procedure ANGELINA MITTAL MD Dec 09, 2020 23:51
[2020-12-10 00:48] LABS: RSV AMPLIFICATION NEGATIVE (NEGATIVE)
[2020-12-10] MEDS ORDERED: LORazepam 0.5 MG TAB PO PRN (00:50)
[2020-12-10] MEDS ORDERED: NITROGLYCERIN 0.4 MG SUBL TABLET SL PRN (00:50)
[2020-12-10] MEDS ORDERED: FURO20TA2 PO (00:52)
[2020-12-10] MEDS ORDERED: ZOLO100T PO (00:52)
[2020-12-10] MEDS ORDERED: PANT40TA29 PO (00:52)
[2020-12-10] MEDS ORDERED: ROSU40TA4 PO (00:52)
[2020-12-10] MEDS ORDERED: D32000TA PO (00:52)
[2020-12-10] MEDS ORDERED: ATIV1TAB10 PO (00:52)
[2020-12-10] MEDS ORDERED: XALA0.007 OU (00:52)
[2020-12-10] MEDS ORDERED: CALC1CAP31 PO (00:52)
[2020-12-10 01:07] VITALS: BP 155/68
[2020-12-10] MEDS ORDERED: cefTRIAXone SOD 2 GM in D5W MINI-BAG PLUS 50 ML IV ONE (02:00)
[2020-12-10 06:00] VITALS: BP 140/75
[2020-12-10 06:40] LABS: HEMATOCRIT 25.2 % (42.0-52.0); HEMOGLOBIN 8.4 g/dl (13.5-17.5); MEAN CORPUSCULAR HEMOGLOBIN 30.9 pg (27.0-33.0); MEAN CORPUSCULAR HGB CONC 33.3 g/dl (32.0-36.5); MEAN CORPUSCULAR VOLUME 92.6 fl (80.0-96.0); PLATELET COUNT, AUTOMATED 167 10^3/uL (150-450); RED BLOOD COUNT 2.72 10^6/uL (4.30-6.10); WHITE BLOOD COUNT 16.2 10^3/uL (4.0-10.0)
[2020-12-10 06:59] LABS: INR 1.12; PROTHROMBIN TIME 14.7 SECONDS (12.5-14.3)
[2020-12-10 07:06] LABS: CALCIUM LEVEL 8.7 MG/DL (8.8-10.2); CREATININE FOR GFR 2.02 MG/DL (0.70-1.30); GLOMERULAR FILTRATION RATE 34.3 (>42); PERCENT SATURATION 11.5 % (19.7-50.0)
--- NOTE | 2020-12-10 07:58 | SMCUROLCON ---
Urology Consultation General Date of Consultation 12/10/20 Reason For Consultation This patient is seen for Hematuria, Urinary Retention. History of Present Illness The patient is a 75 y/o M w/ a PMH significant for prostate cancer s/p radical prostatectomy several years ago followed by salvage EBRT and urinary incontinence (s/p artificial urinary sphincter (AUS) placement), admitted to the hospital for gross hematuria and urinary retention. The patient has a history of radiation cystitis and intermittently has small amounts of hematuria. He notes that he started having heavier hematuria a few days ago and he presented to the ER. A catheter was placed and he went home. After a few hours the cath eter stopped draining and he came back to the ER last night. His catheter was changed out to a 22Fr 3-way catheter and despite manual irrigation, continued to drain bright red urine. He was therefore admitted. He denied having dysuria, frequency, or urgency. He is normally on ASA and plavix, but has been off of these for a few days for a dermatologic procedure. Past Medical History Medical History A Fib CAD Prostate Cancer CVD HTN GERD Depression Surgical Hstory CABG x2 Aortic valve replacement Radical Prostatectomy and salvage EBRT Medications Current Medications Current Medications Medications (Trade) Dose Ordered Sig/[place] Route PRN Reason Start Time Stop Time Status Last Admin Dose Admin Acetaminophen (Tylenol Tab) 650 mg Q4H PRN PO PAIN OR FEVER 12/09/20 23:50 Al Hydrox/Mg Hydrox/Simethicone (Mylanta) 30 ml DAILY PRN PO DYSPEPSIA 12/09/20 23:50 Brimonidine Tartrate (Alphagan P 0.1%) 1 drop BID OU 12/09/20 21:00 Calcitriol (Rocaltrol) 0.25 mcg DAILY PO 12/10/20 09:00 Clopidogrel Bisulfate (PLAVix) 75 mg DAILY PO 12/10/20 09:00 Furosemide (Lasix) 20 mg BID@0900,1700 PO 12/10/20 09:00 Home Med (Med Rec Complete!) ASDIRECTED XX 12/10/20 00:55 12/10/20 00:54 DC Latanoprost (Xalatan 0.005% Op Soln) 1 drop QHS OU 12/09/20 21:00 Lorazepam (Ativan) 0.5 mg Q4H PRN PO ANXIETY/SHORTNESS OF BREATH 12/10/20 00:50 Magnesium Hydroxide (Milk Of Magnesia) 30 ml DAILY PRN PO CONSTIPATION 12/09/20 23:50 Nitroglycerin (Nitrostat (1/ 150)) 0.4 mg Q6HP PRN SL CHEST PAIN 12/10/20 00:50 Pantoprazole Sodium (Protonix) 40 mg DAILY PO 12/10/20 09:00 Rosuvastatin Calcium (Crestor) 40 mg QHS PO 12/10/20 21:00 Sertraline HCl (Zoloft) 100 mg DAILY PO 12/10/20 09:00 Sodium Chloride 1,000 ml @ 70 mls/hr [id number] IV 12/09/20 23:50 12/10/20 00:03 Timolol Maleate (Timoptic 0.5% Ophth Elise) 1 drop BID OU 12/09/20 21:00 Allergies Allergies: Coded Allergies: prednisone (Verified Allergy, Unknown, 12/08/20) Review of Systems General: Reports: Normal Appetite; Denies: Fatigue, Malaise Constitutional: Denies: Fever, Chills, Sweats, Weakness, Malaise ENT: Denies: Head Aches, Sore Throat, Epistaxis Skin: Denies: Rash, Lesions, Breakdown, Nail Changes Pulmonary: Denies: Dyspnea, Cough Cardiovascular: Denies Chest Pain, Denies Palpitations Gastrointestinal: Denies: Nausea, Vomiting, Abdominal Pain Genitourinary: Reports: Hematuria, Retention; Denies: Dysuria, Frequency, Incontinence Neurological: Denies: Weakness, Numbness, Incoordination, Change in Speech Psych: Reports: Mood Normal; Denies: Anxiety, Depression Physical Examination General Exam: Alert, Cooperative, No Acute Distress Chest Exam: Normal air movement Heart Exam: Rate Normal Abdomen Exam: Soft; No: Tenderness, Mass Male Exam 22Fr 3-way catheter in place w/ irrigation wide open and clear outflow draining Vital Signs/I&O Vital Signs Date Time Temp Pulse Resp B/P (MAP) Pulse Ox O2 Delivery O2 Flow Rate FiO2 12/10/20 06:00 97.6 73 18 140/75 (96) 99 Room Air I&O- Last 24 Hours up to 6 AM 12/10/20 06:00 Intake Total 990 ml Output Total 2125 ml Balance -1135 ml Laboratory Data 24H Labs Laboratory Tests 2 12/09/20 20:09: Immature Granulocyte % (Auto) 0.7, Neutrophils (%) (Auto) 89.8H, Lymphocytes (%) (Auto) 3.1L, Monocytes (%) (Auto) 6.3, Eosinophils (%) (Auto) 0.0, Basophils (%) (Auto) 0.1, Neutrophils # (Auto) 14.6H, Lymphocytes # (Auto) 0.5L, Monocytes # (Auto) 1.0H, Eosinophils # (Auto) 0.0, Basophils # (Auto) 0.0, Nucleated Red Blood Cells % (auto) 0.0 12/09/20 20:19: POC Glucose (Misc Panel) 162H, POC Sodium (Misc Panel) 137, POC Potassium (Misc Panel) 4.3, POC Chloride (Misc Panel) 102, POC Total CO2 (Misc Panel) 25.0, POC Blood Urea Nitrogen (Misc Panel 44H, POC Ionized Calcium (Misc Panel) 5.3, POC Creatinine (Misc Panel) 2.8H, POC Hematocrit (Misc Panel) 31.0L 12/09/20 20:42: POC Prothrombin Time (Misc) 17.1H, POC INR (Misc) 1.5 12/09/20 23:58: Coronavirus (COVID-19)(PCR) NEGATIVE, Influenza Type A (RT-PCR) NEGATIVE, Influenza Type B (RT-PCR) NEGATIVE, Respiratory Syncytial Virus (PCR) NEGATIVE 12/10/20 05:52: Nucleated Red Blood Cells % (auto) 0.0, Prothrombin Time 14.7H, Prothromb Time International Ratio 1.12, Anion Gap 8, Glomerular Filtration Rate 34.3L, Calcium Level 8.7L, Iron Level 30L, Total Iron Binding Capacity 260, Transferrin % Saturation 11.5L, Ferritin 111 CBC/BMP Laboratory Tests 12/09/20 20:09 12/10/20 05:52 Assessment This is a 75 y/o M w/ a hx of prostate cancer s/p radical prostatectomy and salvage EBRT complicated by radiation cystitis, admitted for gross hematuria and urinary retention. His Hb is down some to 8.4 this morning from 10.2 last night. His hematuria does not appear that heavy this morning and therefore I titrated down the irrigation. If his hematuria continues to worsen and require wide open CBI, I will recommend that we take him to the OR for cystoscopy, clot evacuation, and fulguration. Plan - continue CBI and titrate irrigation so that the outflow remains pink or clearer - if hematuria remains heavy, requiring wide open CBI, will recommend that we go to the OR this afternoon - if hematuria improves and we can titrate the CBI off, will hold off on surgery - please keep patient NPO - will reassess in a few hours KEVIN MYLES MD Dec 10, 2020 07:58
[2020-12-10] MEDS ORDERED: CLOPIDOGREL 75 MG TAB PO SCH (09:00)
[2020-12-10] MEDS: BRIMONIDINE 0.1% OPHTH SOLN 5 ML OU SCH ×2 (09:20→20:54)
[2020-12-10] MEDS: SERTRALINE 100 MG TAB PO SCH (09:20)
[2020-12-10] MEDS: CALCITRIOL 0.25 MCG CAP (S0169) PO SCH (09:20)
[2020-12-10] MEDS: TIMOLOL MALEATE 0.5% OPHTH SOLN 5 ML OU SCH ×2 (09:21→20:54)
[2020-12-10] MEDS: PANTOPRAZOLE 40MG TAB (PROTONIX) PO SCH (09:21)
[2020-12-10] MEDS: FUROSEMIDE 20 MG TAB PO SCH ×2 (09:21→18:36)
[2020-12-10 09:52] LABS: FOLATE 16.2 NG/ML
--- NOTE | 2020-12-10 11:29 | IPNPDOC ---
Date Seen The patient was seen on 12/10/20. Progress Note SUBJECTIVE: is a 75 yr old w Afib s/p watchman device, CAD/CABG, Porcine AV, Prostate cancer complicated by radiation cystitis, CVAs, Essential HTN, DLP, GERD, CKD3 & Anxiety /Depression who is admitted for management of anemia 2/2 hematuria. Suspected consequence of radiation cystitis. Presently receiving bladder irrigation. Evaluated by Dr. Redman, considering cystoscopy, will re- eval to make decision. Patient was seen and examined at bedside this morning. Alert and oriented 3. Denies any chest pain, shortness of breath, fevers, chills, nausea, vomiting, diarrhea. Bladder irrigation is continuing draining blood-tinged urine without clots. OBJECTIVE PHYSICAL EXAMINATION: VITAL SIGNS: please see below General: NAD, comfortable HEENT: PERRLA, EOMI, sclerae clear Neck: supple, normal ROM, no JVD Respiratory: lungs CTAB, no wheeze, no rales, no crackles CVS: RRR, normal S1, S2, no murmurs Abdo: soft, no masses, no hepatosplenomegaly, BS+, no rebound tenderness Extremities: no edema, pulses 2+ MSK: no joint deformities, normal ROM Neuro: no focal neuro deficits, moving all 4 extremities, CN2-12 intact. Strength 5/5 in all 4 extremities. No nystagmus. Psych: calm, cooperative, AAO x 3 LABORATORY DATA, IMAGING STUDIES, MICROBIOLOGY: Please see below. DVT prophylaxis ordered?: SCDs. Teds ASSESSMENT AND PLAN: PROBLEMS: # Acute Blood Loss Anemia 2/2 Hematuria - c/w CBI - urology consulted, Dr. Redman has evaluated patient. If continues to have gross hematuria requring open CBI, will take patient to OR. If bleeding improves may defer cystocopy - Hgb trending down from 10.2 to 8.4. Will trend q12h - holding plavix. Ok to resume ASA [address] Redman. - s/p 1 dose ceftriaxone - Ucx was sent from ER visit on 12/09/20, pending # Leukocytosis - WBC 16.2 - UCx sent from ER on 12/09/20. UA was neg for LE, nitrites - afebrile. If worsening leukocytosis, fevers, will c/w ceftriaxone # CAD/CABG x 2 / DLP - per patient, he is jluis ASA 81 mg and plavix - has been holding plavix since 12/08/20 for a skin excisional biopsy on his face. Today day #3 off plavix - s/p stenting in 06/2020 at [facility]. - D/w Dr. Redman, ok to c/w asa - awaiting records from [facility] - I reached out to Dr. Tuttle, who may be able to provide more information in a shorter time frame as to records # Prostate cancer s/p prostatectomy and radiation tx complicated by radiation cystitis - request for records from [facility] # CVAs (Left parietal lobe, bilateral cerebellar lobes, right temporal lobe) - c/w statin - patient states that he takes ASA 81 mg daily - will hold plavix. # CKD3 - Cr improved from 2.8 (on POC), now appears to be at baseline ~2.0 #Essential HTN - c/w furosemide # GERD - c/w PPI Anxiety /Depression -continue home meds: lorazepam, sertraline VS, I&O, 24H, [facility] Vital Signs/I&O Vital Signs Date Time Temp Pulse Resp B/P (MAP) Pulse Ox O2 Delivery O2 Flow Rate FiO2 12/10/20 06:00 97.6 73 18 140/75 (96) 99 Room Air I&O- Last 24 Hours up to 6 AM 12/10/20 06:00 Intake Total 990 ml Output Total 2125 ml Balance -1135 ml Laboratory Data 24H LABS Laboratory Tests 2 12/09/20 20:09: Immature Granulocyte % (Auto) 0.7, Neutrophils (%) (Auto) 89.8H, Lymphocytes (%) (Auto) 3.1L, Monocytes (%) (Auto) 6.3, Eosinophils (%) (Auto) 0.0, Basophils (%) (Auto) 0.1, Neutrophils # (Auto) 14.6H, Lymphocytes # (Auto) 0.5L, Monocytes # (Auto) 1.0H, Eosinophils # (Auto) 0.0, Basophils # (Auto) 0.0, Nucleated Red Blood Cells % (auto) 0.0 12/09/20 20:19: POC Glucose (Misc Panel) 162H, POC Sodium (Misc Panel) 137, POC Potassium (Misc Panel) 4.3, POC Chloride (Misc Panel) 102, POC Total CO2 (Misc Panel) 25.0, POC Blood Urea Nitrogen (Misc Panel 44H, POC Ionized Calcium (Misc Panel) 5.3, POC Creatinine (Misc Panel) 2.8H, POC Hematocrit (Misc Panel) 31.0L 12/09/20 20:42: POC Prothrombin Time (Misc) 17.1H, POC INR (Misc) 1.5 12/09/20 23:58: Coronavirus (COVID-19)(PCR) NEGATIVE, Influenza Type A (RT-PCR) NEGATIVE, Influenza Type B (RT-PCR) NEGATIVE, Respiratory Syncytial Virus (PCR) NEGATIVE 12/10/20 05:52: Nucleated Red Blood Cells % (auto) 0.0, Prothrombin Time 14.7H, Prothromb Time International Ratio 1.12, Anion Gap 8, Glomerular Filtration Rate 34.3L, Calcium Level 8.7L, Iron Level 30L, Total Iron Binding Capacity 260, Transferrin % Saturation 11.5L, Ferritin 111, Vitamin B12 Level 420, Folate 16.2 CBC/BMP Laboratory Tests 12/09/20 20:09 12/10/20 05:52 YURI LARKIN MD Dec 10, 2020 11:29
[2020-12-10 12:09] LABS: BASO % 0.3 % (0.0-1.0); EOS % 0.2 % (0.0-3.0); HEMATOCRIT 24.8 % (42.0-52.0); LYMPH # 0.7 10^3/uL (1.5-5.0); MEAN CORPUSCULAR HEMOGLOBIN 30.3 pg (27.0-33.0); MEAN CORPUSCULAR HGB CONC 32.3 g/dl (32.0-36.5); MEAN CORPUSCULAR VOLUME 93.9 fl (80.0-96.0); MONO # 1.5 10^3/uL (0.0-0.8); MONO % 10.9 % (2.0-8.0); NEUTROPHILS # 11.8 10^3/uL (1.5-8.5); PLATELET COUNT, AUTOMATED 159 10^3/uL (150-450); RED BLOOD COUNT 2.64 10^6/uL (4.30-6.10)
[2020-12-10 12:46] LABS: WHITE BLOOD COUNT 14.2 10^3/uL (4.0-10.0)
[2020-12-10] MEDS: ASPIRIN 81MG ENTERIC TABLET PO SCH (13:27)
[2020-12-10] MEDS: ROSUVASTATIN 10 MG TAB (CRESTOR) PO SCH (20:53)
[2020-12-10] MEDS: LATANOPROST 0.005% OPHTH SOLN 2.5 ML OU SCH (20:54)
[2020-12-10 22:00] VITALS: BP 140/65
[2020-12-10 23:43] LABS: BASO % 0.3 % (0.0-1.0); EOS # 0.2 10^3/uL (0.0-0.5); EOS % 1.6 % (0.0-3.0); HEMATOCRIT 22.5 % (42.0-52.0); HEMOGLOBIN 7.3 g/dl (13.5-17.5); LYMPH # 0.8 10^3/uL (1.5-5.0); LYMPH % 5.8 % (24.0-44.0); MEAN CORPUSCULAR HEMOGLOBIN 30.7 pg (27.0-33.0); MEAN CORPUSCULAR HGB CONC 32.4 g/dl (32.0-36.5); MEAN CORPUSCULAR VOLUME 94.5 fl (80.0-96.0); MONO # 1.7 10^3/uL (0.0-0.8); MONO % 12.4 % (2.0-8.0); NEUTROPHILS # 10.9 10^3/uL (1.5-8.5); NEUTROPHILS % 79.5 % (36.0-66.0); PLATELET COUNT, AUTOMATED 166 10^3/uL (150-450); RED BLOOD COUNT 2.38 10^6/uL (4.30-6.10)
[2020-12-10 23:54] LABS: WHITE BLOOD COUNT 13.7 10^3/uL (4.0-10.0)
[2020-12-11 05:57] LABS: BASO % 0.3 % (0.0-1.0); EOS # 0.2 10^3/uL (0.0-0.5); EOS % 1.7 % (0.0-3.0); HEMATOCRIT 22.3 % (42.0-52.0); HEMOGLOBIN 7.3 g/dl (13.5-17.5); LYMPH # 1.1 10^3/uL (1.5-5.0); MEAN CORPUSCULAR HEMOGLOBIN 31.1 pg (27.0-33.0); MEAN CORPUSCULAR HGB CONC 32.7 g/dl (32.0-36.5); MEAN CORPUSCULAR VOLUME 94.9 fl (80.0-96.0); MONO # 1.7 10^3/uL (0.0-0.8); MONO % 12.9 % (2.0-8.0); NEUTROPHILS # 10.2 10^3/uL (1.5-8.5); NEUTROPHILS % 76.6 % (36.0-66.0); PLATELET COUNT, AUTOMATED 170 10^3/uL (150-450); RED BLOOD COUNT 2.35 10^6/uL (4.30-6.10)
[2020-12-11 06:00] VITALS: BP 126/57
[2020-12-11 06:16] LABS: WHITE BLOOD COUNT 13.3 10^3/uL (4.0-10.0)
[2020-12-11 06:23] LABS: ALBUMIN 2.5 GM/DL (3.2-5.2); BILIRUBIN,TOTAL 0.3 MG/DL (0.2-1.0); CREATININE FOR GFR 1.98 MG/DL (0.70-1.30); GLOMERULAR FILTRATION RATE 35.1 (>42); MAGNESIUM LEVEL 2.3 MG/DL (1.8-2.4); POTASSIUM SERUM 4.1 MEQ/L (3.5-5.1); TOTAL PROTEIN 5.6 GM/DL (6.4-8.2)
[2020-12-11] MEDS ORDERED: LIDOCAINE 2% 100MG/5ML SDV (FOR ANES.) As Ordered ONE (06:50)
[2020-12-11] MEDS ORDERED: ONDANSETRON 4MG/2ML VIAL As Ordered ONE (06:51)
[2020-12-11] MEDS ORDERED: dexameTHASONE 4 MG/ML 1ML VIAL (J1100 PER 1MG) As Ordered ONE (06:51)
[2020-12-11] MEDS ORDERED: propofoL 200 MG/20 ML VIAL As Ordered ONE (06:51)
--- NOTE | 2020-12-11 10:21 | IPNPDOC ---
Subjective Review oF Systems Chief Complaint The patient is a 75-year-old male admitted with a reason for visit of Hematuria, Urinary Retention. Events since Last Encounter Patient's catheter required manual irrigation twice yesterday evening for clots. He feels well. He denies pain. Denies SOB or chest pain. Objective Physical Examination General Exam: Alert, Cooperative, No Acute Distress Chest Exam: Clear to auscultation Heart Exam: Positive: Rate Normal ABDOMEN EXAM: Soft; No: Tenderness Skin Exam: Nl turgor and temperature Neuro Exam: Normal Speech Psych Exam: Mental status NL, Mood NL Other physical findings 22Fr [address] w/ CBI on moderate drip and pink outflow draining Vital Signs/I&O Vital Signs Date Time Temp Pulse Resp B/P (MAP) Pulse Ox O2 Delivery O2 Flow Rate FiO2 12/11/20 06:00 97.2 74 18 126/57 (80) 95 Room Air I&O- Last 24 Hours up to 6 AM 12/11/20 06:00 Intake Total 1050 ml Output Total 3890 ml Balance -2840 ml Laboratory Data Labs 24H Laboratory Tests 2 12/10/20 11:48: Immature Granulocyte % (Auto) 0.6, Neutrophils (%) (Auto) 83.0H, Lymphocytes (%) (Auto) 5.0L, Monocytes (%) (Auto) 10.9H, Eosinophils (%) (Auto) 0.2, Basophils (%) (Auto) 0.3, Neutrophils # (Auto) 11.8H, Lymphocytes # (Auto) 0.7L, Monocytes # (Auto) 1.5H, Eosinophils # (Auto) 0.0, Basophils # (Auto) 0.0, Nucleated Red Blood Cells % (auto) 0.0 12/10/20 23:35: Immature Granulocyte % (Auto) 0.4, Neutrophils (%) (Auto) 79.5H, Lymphocytes (%) (Auto) 5.8L, Monocytes (%) (Auto) 12.4H, Eosinophils (%) (Auto) 1.6, Basophils (%) (Auto) 0.3, Neutrophils # (Auto) 10.9H, Lymphocytes # (Auto) 0.8L, Monocytes # (Auto) 1.7H, Eosinophils # (Auto) 0.2, Basophils # (Auto) 0.0, Nucleated Red Blood Cells % (auto) 0.0 12/11/20 05:07: Immature Granulocyte % (Auto) 0.5, Neutrophils (%) (Auto) 76.6H, Lymphocytes (%) (Auto) 8.0L, Monocytes (%) (Auto) 12.9H, Eosinophils (%) (Auto) 1.7, Basophils (%) (Auto) 0.3, Neutrophils # (Auto) 10.2H, Lymphocytes # (Auto) 1.1L, Monocytes # (Auto) 1.7H, Eosinophils # (Auto) 0.2, Basophils # (Auto) 0.0, Nucleated Red Blood Cells % (auto) 0.0, Anion Gap 8, Glomerular Filtration Rate 35.1L, Calcium Level 8.0L, Magnesium Level 2.3, Total Bilirubin 0.3, Aspartate Amino Transf (AST/SGOT) 15, Alanine Aminotransferase (ALT/SGPT) 16, Alkaline Phosphatase 71, Total Protein 5.6L, Albumin 2.5L, Albumin/Globulin Ratio 0.8 CBC/BMP Laboratory Tests 12/10/20 11:48 12/10/20 23:35 12/11/20 05:07 Assessment/Plan Date Seen The patient was seen on 12/11/20. Patient Summary This is a 75 y/o M w/ a hx of prostate cancer s/p radical prostatectomy and salvage EBRT complicated by radiation cystitis, admitted for gross hematuria and urinary retention. His hematuria appeared to have improved yesterday morning but worsened again yesterday afternoon and evening. His Hb has drifted down to 7.3 from 10.2 on admission. I recommended that we take him to the OR today for cystoscopy, clot evacuation, and cauterization. Of note, his urine culture obtained the day prior to admission grew Klebsiella. We will give him levaquin 500mg IV prior to surgery today and start him on PO cipro bid tomorrow. Plan/VTE VTE Prophylaxis Ordered?: Yes VTE Exclusion Mechanical Proph: N/A:VTE Prophy Ordered Plan/Urinary Catheter Reason for insertion/continuin: Acute obstruct/retention Plan - continue CBI - patient to receive 2 units PRBC - levaquin 500mg IV OCOR - cipro 500mg PO bid starting tomorrow - NPO - informed consent signed - to OR this morning KEVIN MYLES MD Dec 11, 2020 09:32
[2020-12-11] MEDS ORDERED: LevoFLOXacin 500MG/100ML IV BAG (J1956 PER 250MG) As Ordered ONE (10:41)
[2020-12-11] MEDS ORDERED: fentaNYL 100 MCG/2 ML INJECTION (J3010) As Ordered ONE (11:03)
--- NOTE | 2020-12-11 11:58 | IPNPDOC ---
Date Seen The patient was seen on 12/11/20. Progress Note SUBJECTIVE: is a 75 yr old w Afib s/p watchman device, CAD/CABG, Porcine AV, Prostate cancer complicated by radiation cystitis, CVAs, Essential HTN, DLP, GERD, CKD3 & Anxiety /Depression who is admitted for management of anemia 2/2 hematuria. Suspected consequence of radiation cystitis. Presently receiving bladder irrigation. Evaluated by Dr. Redman, considering cystoscopy, will re- eval to make decision. Patient was seen and examined at bedside this morning. Alert and oriented 3. Denies any chest pain, shortness of breath, fevers, chills, nausea, vomiting, diarrhea. Had substantial hematuria with clots overnight. Planned for OR this morning. Ordered 2 units prbc for Hgb of 7.3. OBJECTIVE PHYSICAL EXAMINATION: VITAL SIGNS: please see below General: NAD, comfortable HEENT: PERRLA, EOMI, sclerae clear Neck: supple, normal ROM, no JVD Respiratory: lungs CTAB, no wheeze, no rales, no crackles CVS: RRR, normal S1, S2, no murmurs Abdo: soft, no masses, no hepatosplenomegaly, BS+, no rebound tenderness Extremities: no edema, pulses 2+ MSK: no joint deformities, normal ROM Neuro: no focal neuro deficits, moving all 4 extremities, CN2-12 intact. Strength 5/5 in all 4 extremities. No nystagmus. Psych: calm, cooperative, AAO x 3 LABORATORY DATA, IMAGING STUDIES, MICROBIOLOGY: Please see below. DVT prophylaxis ordered?: SCDs. Teds ASSESSMENT AND PLAN: PROBLEMS: # Acute Blood Loss Anemia 2/2 Hematuria - likely 2/2 combination of radiation cystitis and UTI/infectious cystitis - Ucx positive for klebsiella from 12/08/20 - urology consulted, Dr. Redman has evaluated patient. If continues to have gross hematuria requring open CBI, will take patient to OR. If bleeding improves may defer cystocopy - acute drop in hgb, had substantial bleeding with clots overnight on 12/11/20 - Hgb drop to 7.3. Ordered 2 units prbc - taken to OR on 12/11/20. s/p cauterization - holding plavix until 12/14/[address] Redman. resumed ASA - per Dr. Redman, if hgb remains stable, without need for CBI, can DC home, and f/u with urologist in [place]. # Urinary Tract Infection - WBC improving - UCx sent from ER on 12/08/20. Culture positive for klebsiella - s/p cystoscopy with Dr. Redman. Received levaquin IV intraop - continue ciprofloxacin 500 mg BID x 7 days # CAD/CABG x 2 / DLP - per patient, he is jluis ASA 81 mg and plavix - has been holding plavix since 12/08/20 for a skin excisional biopsy on his face. Today day #3 off plavix - s/p stenting in 06/2020 at [facility]. - D/w Dr. Redman, ok to c/w asa - awaiting records from [facility] - I reached out to Dr. Tuttle, who may be able to provide more information in a shorter time frame as to records # Prostate cancer s/p prostatectomy and radiation tx complicated by radiation cystitis - request for records from [facility] # CVAs (Left parietal lobe, bilateral cerebellar lobes, right temporal lobe) - c/w statin - patient states that he takes ASA 81 mg daily - will hold plavix. # CKD3 - Cr improved from 2.8 (on POC), now appears to be at baseline ~2.0 #Essential HTN - c/w furosemide # GERD - c/w PPI Anxiety /Depression -continue home meds: lorazepam, sertraline VS, I&O, 24H, Fishbone Vital Signs/I&O Vital Signs Date Time Temp Pulse Resp B/P (MAP) Pulse Ox O2 Delivery O2 Flow Rate FiO2 12/11/20 06:00 97.2 74 18 126/57 (80) 95 Room Air I&O- Last 24 Hours up to 6 AM 12/11/20 06:00 Intake Total 1050 ml Output Total 3890 ml Balance -2840 ml Laboratory Data 24H LABS Laboratory Tests 2 12/10/20 23:35: Immature Granulocyte % (Auto) 0.4, Neutrophils (%) (Auto) 79.5H, Lymphocytes (%) (Auto) 5.8L, Monocytes (%) (Auto) 12.4H, Eosinophils (%) (Auto) 1.6, Basophils (%) (Auto) 0.3, Neutrophils # (Auto) 10.9H, Lymphocytes # (Auto) 0.8L, Monocytes # (Auto) 1.7H, Eosinophils # (Auto) 0.2, Basophils # (Auto) 0.0, Nucleated Red Blood Cells % (auto) 0.0 12/11/20 05:07: Immature Granulocyte % (Auto) 0.5, Neutrophils (%) (Auto) 76.6H, Lymphocytes (%) (Auto) 8.0L, Monocytes (%) (Auto) 12.9H, Eosinophils (%) (Auto) 1.7, Basophils (%) (Auto) 0.3, Neutrophils # (Auto) 10.2H, Lymphocytes # (Auto) 1.1L, Monocytes # (Auto) 1.7H, Eosinophils # (Auto) 0.2, Basophils # (Auto) 0.0, Nucleated Red Blood Cells % (auto) 0.0, Anion Gap 8, Glomerular Filtration Rate 35.1L, Calcium Level 8.0L, Magnesium Level 2.3, Total Bilirubin 0.3, Aspartate Amino Transf (AST/SGOT) 15, Alanine Aminotransferase (ALT/SGPT) 16, Alkaline Phosphatase 71, Total Protein 5.6L, Albumin 2.5L, Albumin/Globulin Ratio 0.8 CBC/BMP Laboratory Tests 12/10/20 23:35 12/11/20 05:07 YURI LARKIN MD Dec 11, 2020 11:58
[2020-12-11] MEDS ORDERED: LevoFLOXacin IV 500 MG in IV 1 EA IV ONE (12:00)
[2020-12-11] MEDS ORDERED: fentaNYL 100 MCG/2 ML INJECTION (J3010) IV PRN (12:05)
[2020-12-11] MEDS ORDERED: oxyCODONE 5MG TAB PO PRN (12:05)
[2020-12-11] MEDS ORDERED: ONDANSETRON 4MG/2ML VIAL IV PRN (12:05)
[2020-12-11] MEDS ORDERED: LR 1,000 ML IV SCH (12:05)
[2020-12-11] MEDS: ASPIRIN 81MG ENTERIC TABLET PO SCH (12:56)
[2020-12-11] MEDS: FUROSEMIDE 20 MG TAB PO SCH ×2 (12:57→18:05)
[2020-12-11] MEDS: SERTRALINE 100 MG TAB PO SCH (12:57)
[2020-12-11] MEDS: PANTOPRAZOLE 40MG TAB (PROTONIX) PO SCH (12:57)
[2020-12-11] MEDS: TIMOLOL MALEATE 0.5% OPHTH SOLN 5 ML OU SCH ×2 (12:57→21:11)
[2020-12-11] MEDS: CALCITRIOL 0.25 MCG CAP (S0169) PO SCH (12:57)
[2020-12-11] MEDS: BRIMONIDINE 0.1% OPHTH SOLN 5 ML OU SCH ×2 (12:57→21:11)
[2020-12-11 14:00] VITALS: BP 138/50
--- NOTE | 2020-12-11 14:07 | RO ---
OPERATIVE NOTE DATE OF OPERATION: 12/11/2020 PREOPERATIVE DIAGNOSIS: Gross hematuria. POSTOPERATIVE DIAGNOSIS: Gross hematuria. PROCEDURE: Cystoscopy, clot evacuation, cauterization of bleeding. SURGEON: Dr. Leighton Redman LABORER TANBARK: None. ANESTHESIA: General. OPERATIVE INDICATIONS: This is a 75-year-old male with a history of prostate cancer status post radical prostatectomy and salvage radiation therapy previously. 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 He was brought to the hospital recently with another episode of hematuria and urinary retention. Due to intractable hematuria, it was recommended he be brought to the operating room today for the above-listed procedure. DESCRIPTION OF PROCEDURE: The patient was brought to the operating room, and general anesthesia was induced. Culture-specific antibiotics were infused. He was then placed in the dorsal lithotomy position and prepped and draped in the usual sterile fashion. At this point, a resectoscope was inserted in the urethral meatus and advanced toward the bladder. Of note, at the level of the bulbar urethra it was very tight. Of note, the patient has a history of an artificial urinary sphincter previously, and the patient previously noted that on admission he had deactivated his artificial sphincter. It did not appear to be completely deactivated to me at this time considering how tight the urethra was there. I therefore examined the scrotum, and the sphincter indeed did not appear to be deactivated. At this point, I completely deactivated the sphincter, and after doing so I was able to advance the resectoscope all the way into the bladder. At this point, I spent a significant amount of time evacuating a large amount of clot out of the bladder. Once I was able to evacuate all the clot out of the bladder, the bladder was thoroughly examined. No tumors were seen. No stones were seen. Bilateral orifices were orthotopic and effluxed clear urine. The bladder was hypervascular, consistent with a history of radiation cystitis. There were probably five or six different areas inside the bladder that exhibited venous oozing. All these areas were cauterized using a plasma button. Once these areas were completely cauterized, there was no additional bleeding. At this point, hemostasis appeared to be excellent. The resectoscope was then removed, and then a 20-Malay Maldonado catheter was inserted into the bladder. This was a 3-way catheter. The balloon was filled with 30 mL of sterile water. The irrigation port was plugged. The catheter was connected to gravity drainage, and this marked the conclusion of the procedure. The patient was then awakened from anesthesia, taken out of the dorsal lithotomy position, and transferred to recovery room in stable condition. ESTIMATED BLOOD LOSS: 15 mL. COMPLICATIONS: None. SPECIMENS: None. PLAN: The patient will be monitored in the hospital for at least another day, and if his hematuria appears to have resolved, he can be discharged home with the catheter in place. He can then followup with his urologist as an outpatient. I think he would be a good candidate for hyperbaric oxygen considering his recurring hematuria. DEANNE
[2020-12-11 15:46] LABS: BASO % 0.1 % (0.0-1.0); EOS % 0.1 % (0.0-3.0); HEMATOCRIT 31.9 % (42.0-52.0); HEMOGLOBIN 10.4 g/dl (13.5-17.5); LYMPH # 0.3 10^3/uL (1.5-5.0); MEAN CORPUSCULAR HEMOGLOBIN 30.7 pg (27.0-33.0); MEAN CORPUSCULAR HGB CONC 32.6 g/dl (32.0-36.5); MEAN CORPUSCULAR VOLUME 94.1 fl (80.0-96.0); MONO % 6.3 % (2.0-8.0); NEUTROPHILS # 13.9 10^3/uL (1.5-8.5); NEUTROPHILS % 90.9 % (36.0-66.0); PLATELET COUNT, AUTOMATED 144 10^3/uL (150-450); RED BLOOD COUNT 3.39 10^6/uL (4.30-6.10); WHITE BLOOD COUNT 15.3 10^3/uL (4.0-10.0)
[2020-12-11] MEDS ORDERED: CIPROFLOXACIN 500MG TABLET PO SCH (18:00)
[2020-12-11] MEDS: ROSUVASTATIN 10 MG TAB (CRESTOR) PO SCH (21:10)
[2020-12-11] MEDS: LATANOPROST 0.005% OPHTH SOLN 2.5 ML OU SCH (21:11)
[2020-12-11 22:00] VITALS: BP 148/65
[2020-12-12 02:00] VITALS: BP 122/51
[2020-12-12 06:00] VITALS: BP 136/55
[2020-12-12] MEDS ORDERED: CIPROFLOXACIN 500MG TABLET PO SCH (06:00)
[2020-12-12] MEDS ORDERED: CIPROFLOXACIN 250MG TAB PO SCH (06:00)
[2020-12-12 06:45] LABS: BASO % 0.2 % (0.0-1.0); EOS # 0.1 10^3/uL (0.0-0.5); EOS % 0.3 % (0.0-3.0); HEMOGLOBIN 10.9 g/dl (13.5-17.5); LYMPH # 0.9 10^3/uL (1.5-5.0); MEAN CORPUSCULAR HEMOGLOBIN 30.4 pg (27.0-33.0); MEAN CORPUSCULAR VOLUME 92.2 fl (80.0-96.0); NEUTROPHILS % 82.9 % (36.0-66.0); PLATELET COUNT, AUTOMATED 163 10^3/uL (150-450); RED BLOOD COUNT 3.58 10^6/uL (4.30-6.10)
[2020-12-12 07:06] LABS: ALBUMIN 2.8 GM/DL (3.2-5.2); BILIRUBIN,TOTAL 0.3 MG/DL (0.2-1.0); CALCIUM LEVEL 8.7 MG/DL (8.8-10.2); CREATININE FOR GFR 1.96 MG/DL (0.70-1.30); GLOMERULAR FILTRATION RATE 35.5 (>42); MAGNESIUM LEVEL 2.3 MG/DL (1.8-2.4); POTASSIUM SERUM 4.2 MEQ/L (3.5-5.1); TOTAL PROTEIN 7.3 GM/DL (6.4-8.2)
[2020-12-12 07:23] LABS: WHITE BLOOD COUNT 18.1 10^3/uL (4.0-10.0)
[2020-12-12] MEDS: ASPIRIN 81MG ENTERIC TABLET PO SCH (09:32)
[2020-12-12] MEDS: SERTRALINE 100 MG TAB PO SCH (09:32)
[2020-12-12] MEDS: FUROSEMIDE 20 MG TAB PO SCH (09:32)
[2020-12-12] MEDS: BRIMONIDINE 0.1% OPHTH SOLN 5 ML OU SCH (09:32)
[2020-12-12] MEDS: PANTOPRAZOLE 40MG TAB (PROTONIX) PO SCH (09:32)
[2020-12-12] MEDS: TIMOLOL MALEATE 0.5% OPHTH SOLN 5 ML OU SCH (09:32)
[2020-12-12] MEDS: CALCITRIOL 0.25 MCG CAP (S0169) PO SCH (09:32)
[2020-12-12] MEDS ORDERED: CIPR250T3 PO (11:19)
[2020-12-12] MEDS ORDERED: ASPI-551 PO (11:19)
--- NOTE | 2020-12-12 11:24 | DS.PDOC ---
Discharge Summary General Date of Admission Dec 10, 2020 at 23:51 Date of Discharge 12/12/20 Discharge Summary PROCEDURES PERFORMED DURING STAY: [None]. COMPLICATIONS/CHIEF COMPLAINT: Hematuria, Urinary Retention. HISTORY OF PRESENT ILLNESS: , a 75 yr old M, initially presented to the ER yesterday w c/o difficulties urinating and passing blood clots which he attributed to radiation cystitis; a 3 way gracia was placed and the bladder was irrigated and he was discharged home with instructions to f/u w Urology and his PCP; today he developed severe cramping lower abdominal pain and urinary reten tion bc his gracia was obstructed with blood clots. He denied having f/c/n/v abdominal pain or back pain. After irrigation he produced 500ml of dark red urine. DEMARCUS Perez discussed the case with who will see the patient in the morning. PAST MEDICAL/ SURGICAL HISTORY: Hx of A Fib s/p watchman procedure, CAD/CABG x 2 (most recent stent placed in Jun at [facility]), Porcine AVR, Prostate cancer s/p prostatectomy and radiation tx complicated by radiation cystitis, CVAs (Left parietal lobe, bilateral cerebellar lobes, right temporal lobe), Essential HTN / chronic small vessel ischemic disease, DLP, GERD, CKD3, Anxiety /Depression, Resection of SCC, Resection of adenomatous colonic polyp HOSPITAL COURSE: # Acute Blood Loss Anemia 2/2 Hematuria - likely 2/2 combination of radiation cystitis and UTI/infectious cystitis - Ucx positive for klebsiella from 12/08/20 - urology consulted, Dr. Redman has evaluated patient. If continues to have gross hematuria requring open CBI, will take patient to OR. If bleeding improves may defer cystocopy - acute drop in hgb, had substantial bleeding with clots overnight on 12/11/20 - Hgb drop to 7.3. Ordered 2 units prbc - taken to OR on 12/11/20. s/p cauterization - holding plavix until 12/14/[address] Redman. resumed ASA - per Dr. Redman, if hgb remains stable, without need for CBI, can DC home, and f/u with urologist in [place]. # Urinary Tract Infection - WBC improving - UCx sent from ER on 12/08/20. Culture positive for klebsiella - s/p cystoscopy with Dr. Redman. Received levaquin IV intraop - continue ciprofloxacin 500 mg BID x 7 days # CAD/CABG x 2 / DLP - per patient, he is jluis ASA 81 mg and plavix - has been holding plavix since 12/08/20 for a skin excisional biopsy on his face. Today day #3 off plavix - s/p stenting in 06/2020 at [facility]. - D/w Dr. Redman, ok to c/w asa - awaiting records from [facility] - I reached out to Dr. Tuttle, who may be able to provide more information in a shorter time frame as to records # Prostate cancer s/p prostatectomy and radiation tx complicated by radiation cystitis - request for records from [facility] # CVAs (Left parietal lobe, bilateral cerebellar lobes, right temporal lobe) - c/w statin - patient states that he takes ASA 81 mg daily - will hold plavix. # CKD3 - Cr improved from 2.8 (on POC), now appears to be at baseline ~2.0 #Essential HTN - c/w furosemide # GERD - c/w PPI DISCHARGE MEDICATIONS: Please see below. ALLERGIES: Please see below. PHYSICAL EXAMINATION ON DISCHARGE: VITAL SIGNS: Please see below. General: NAD, comfortable HEENT: PERRLA, EOMI, sclerae clear Neck: supple, normal ROM, no JVD Respiratory: lungs CTAB, no wheeze, no rales, no crackles CVS: RRR, normal S1, S2, no murmurs Abdo: soft, no masses, no hepatosplenomegaly, BS+, no rebound tenderness : indwelling gracia catheter in place, slightly pink urine in tubing, no clots Extremities: no edema, pulses 2+ MSK: no joint deformities, normal ROM Neuro: no focal neuro deficits, moving all 4 extremities, CN2-12 intact. Strength 5/5 in all 4 extremities. No nystagmus. Psych: calm, cooperative, AAO x 3 LABORATORY DATA: Please see below. IMAGING: N/A PROGNOSIS: good ACTIVITY: [As tolerated]. DIET: 2g sodium DISCHARGE PLAN: DC home with PCP follow up as well as urology, oncology and cardiology. To leave gracia catheter in place until urology f/u. Complete 5 ad ditional days of PO ciprofloxacin for a 7 day course. Due to CKD, CrCl 30, dosage adjusted to 250 mg PO BID. Patient was instructed to resume plavix on 12/14/20, 72 hours after cystoscopy as per Dr. Redman. DISPOSITION: Home DISCHARGE INSTRUCTIONS: 1. F/u PCP 2. F/u urology, cardiology, oncology, PCP 3. Complete course of antibiotics x 5 days 4. If you develop recurrent bleeding, chest pain, palpitations, fall or otherwise worsening of your symptoms, please call 911 or return to the nearest emergency room. DISCHARGE CONDITION: [Stable]. TIME SPENT ON DISCHARGE: 35 minutes Vital Signs/I&Os Vital Signs Date Time Temp Pulse Resp B/P (MAP) Pulse Ox O2 Delivery O2 Flow Rate FiO2 12/12/20 06:00 98.3 72 16 136/55 (82) 95 Room Air 12/11/20 11:48 10.0 I&O- Last 24 Hours up to 6 AM 12/12/20 06:00 Intake Total 1900 ml Output Total 1450 ml Balance 450 ml Laboratory Data Labs 24H Laboratory Tests 2 12/11/20 15:21: Immature Granulocyte % (Auto) 0.6, Neutrophils (%) (Auto) 90.9H, Lymphocytes (%) (Auto) 2.0L, Monocytes (%) (Auto) 6.3, Eosinophils (%) (Auto) 0.1, Basophils (%) (Auto) 0.1, Neutrophils # (Auto) 13.9H, Lymphocytes # (Auto) 0.3L, Monocytes # (Auto) 1.0H, Eosinophils # (Auto) 0.0, Basophils # (Auto) 0.0, Nucleated Red Blood Cells % (auto) 0.0 12/12/20 06:12: Immature Granulocyte % (Auto) 0.6, Neutrophils (%) (Auto) 82.9H, Lymphocytes (%) (Auto) 5.0L, Monocytes (%) (Auto) 11.0H, Eosinophils (%) (Auto) 0.3, Basophils (%) (Auto) 0.2, Neutrophils # (Auto) 15.0H, Lymphocytes # (Auto) 0.9L, Monocytes # (Auto) 2.0H, Eosinophils # (Auto) 0.1, Basophils # (Auto) 0.0, Nucleated Red Blood Cells % (auto) 0.0, Anion Gap 7L, Glomerular Filtration Rate 35.5L, Calcium Level 8.7L, Magnesium Level 2.3, Total Bilirubin 0.3, Aspartate Amino Transf (AST/SGOT) 27, Alanine Aminotransferase (ALT/SGPT) 19, Alkaline Phosphatase 93, Total Protein 7.3#, Albumin 2.8L, Albumin/Globulin Ratio 0.6 CBC/BMP Laboratory Tests 12/11/20 15:21 12/12/20 06:12 Discharge Medications Scheduled Aspirin (Aspirin EC) 81 Mg Tablet.dr, 81 MG PO DAILY Brimonidine Tartrate/Timolol (Combigan 0.2%-0.5% Eye Drops) 1 Elise Elise, 1 DROP OU BID, (Reported) Calcitriol (Calcitriol) 0.25 Mcg Capsule, 0.25 MCG PO DAILY, (Reported) Cholecalciferol (Vitamin D3) (Vitamin D3) 50 Mcg Tablet, 50 MCG PO DAILY, (Reported) Ciprofloxacin HCl (Ciprofloxacin HCl) 250 Mg Tablet, 250 MG PO BID Furosemide (Furosemide) 20 Mg Tablet, 20 MG PO BID, (Reported) Latanoprost (Xalatan) 0.005% 2.5ML Drops, 1 DROP OU QHS, (Reported) Pantoprazole Sodium (Pantoprazole Sodium) 40 Mg Tablet.dr, 40 MG PO DAILY, (Reported) Rosuvastatin Calcium (Rosuvastatin Calcium) 40 Mg Tablet, 40 MG PO QHS, (Reported) Sertraline Hcl (Zoloft) 100 Mg Tablet, 100 MG PO DAILY, (Reported) Scheduled PRN Acetaminophen (Acetaminophen) 325 Mg Tab, 650 MG PO Q4H PRN for PAIN, (Reported) Lorazepam (Ativan) 0.5 Mg Tablet, 0.5 MG PO Q4H PRN for ANXIETY/SHORTNESS OF BREATH, (Reported) Nitroglycerin (Nitrostat) 0.4 Mg Subl, 0.4 MG SL NITRO PRN for CHEST PAIN, (Reported) Allergies Coded Allergies: prednisone (Verified Allergy, Unknown, 12/08/20) YURI LARKIN MD Dec 12, 2020 11:24
[2020-12-12 12:04] VITALS: BP 136/54
== END 2020-12-12 13:11 | disposition home or self-care (01) | DRG 663 ==
LOC: M ED 19:10 → M ED INP 12-10 00:21 → ENRESERV 12-10 00:39 → M MSPAV 12-10 01:08 → OBSVTOIN 12-10 23:51
PROVIDERS: ADMIT Internal Medicine; ATTEND Family Medicine
PROC: 0TCB8ZZ Extirpation of Matter from Bladder, Via Natural or Artificial Opening Endoscopic (ICD-10-PCS; 2020-12-11)
PROC: 30233N1 Transfusion of Nonautologous Red Blood Cells into Peripheral Vein, Percutaneous Approach (ICD-10-PCS; 2020-12-11)
PROC: 0W3R8ZZ Control Bleeding in Genitourinary Tract, Via Natural or Artificial Opening Endoscopic (ICD-10-PCS; principal; 2020-12-11 10:00)
DX: N30.21 Other chronic cystitis with hematuria (principal); D62 Acute posthemorrhagic anemia; N39.0 Urinary tract infection, site not specified; R33.9 Retention of urine, unspecified; I12.9 Hypertensive chronic kidney disease with stage 1 through stage 4 chronic kidney disease, or unspecified chronic kidney disease; N18.30 Chronic kidney disease, stage 3 unspecified; Z85.46 Personal history of malignant neoplasm of prostate; I48.91 Unspecified atrial fibrillation; I25.10 Atherosclerotic heart disease of native coronary artery without angina pectoris; Z95.1 Presence of aortocoronary bypass graft; Z86.73 Personal history of transient ischemic attack (TIA), and cerebral infarction without residual deficits; Z92.3 Personal history of irradiation; Z79.899 Other long term (current) drug therapy; Z79.82 Long term (current) use of aspirin; Z88.8 Allergy status to other drugs, medicaments and biological substances; Z87.891 Personal history of nicotine dependence; K21.9 Gastro-esophageal reflux disease without esophagitis

== ENCOUNTER → 2020-12-23 | Outpatient (REF) | payer MEDICARE ==
[~2020-12-23] MED LIST changes: +ASPI-551 PO; +ATIV1TAB10 PO; +CALC1CAP31 PO; +CIPR250T3 PO; +D32000TA PO; +FURO20TA2 PO; +PANT40TA29 PO; +ROSU40TA4 PO; +XALA0.007 OU; +ZOLO100T PO
== END ==
LOC: M LAB REF 15:46
PROVIDERS: ATTEND Internal Medicine
DX: D50.9 Iron deficiency anemia, unspecified (principal)

== ENCOUNTER 2020-12-24 13:00 | Outpatient (CLI) | payer MEDICARE ==
[2020-12-24] VITALS (7 sets, daily range): BP systolic 102–137; BP diastolic 53–68
[~2020-12-24] VITALS: Ht 172.7 cm; Wt 65.0 kg
[~2020-12-24 13:00] MED LIST changes: +ACETAMINOPHEN 500 MG TAB PO SCH; +diphenhydrAMINE 25MG CAP PO SCH
== END 2020-12-24 16:45 | disposition home or self-care (01) ==
LOC: M INFU 13:00
PROVIDERS: ATTEND Internal Medicine
DX: D50.9 Iron deficiency anemia, unspecified (principal); R31.9 Hematuria, unspecified
CPT/HCPCS: 36430; P9016

== ENCOUNTER 2021-01-01 09:47 | Inpatient (IN) | payer MEDICARE ==
[~2021-01-01] VITALS: Ht 172.7 cm; Wt 67.1 kg
[2021-01-01] VITALS (12 sets, daily range): BP systolic 100–158; BP diastolic 55–73
[~2021-01-01 09:47] MED LIST changes: -ACETAMINOPHEN 500 MG TAB PO SCH; -diphenhydrAMINE 25MG CAP PO SCH
[2021-01-01] MEDS ORDERED: LIDOCAINE 2% 5ML JELLY UROJET TOP ONE (10:45)
[2021-01-01 11:16] LABS: MEAN CORPUSCULAR HEMOGLOBIN 28.7 pg (27.0-33.0); MEAN CORPUSCULAR HGB CONC 31.2 g/dl (32.0-36.5); MEAN CORPUSCULAR VOLUME 92.1 fl (80.0-96.0); PLATELET COUNT, AUTOMATED 201 10^3/uL (150-450); RED BLOOD COUNT 2.02 10^6/uL (4.30-6.10); WHITE BLOOD COUNT 9.4 10^3/uL (4.0-10.0)
[2021-01-01 11:19] LABS: HEMATOCRIT 18.6 % (42.0-52.0); HEMOGLOBIN 5.8 g/dl (13.5-17.5)
[2021-01-01 11:44] LABS: CALCIUM LEVEL 7.9 MG/DL (8.8-10.2); CREATININE FOR GFR 2.16 MG/DL (0.70-1.30); GLOMERULAR FILTRATION RATE 31.7 (>42); POTASSIUM SERUM 3.6 MEQ/L (3.5-5.1)
--- NOTE | 2021-01-01 12:33 | REP ---
INDICATION: pre-op COMPARISON: 08/22/2017 TECHNIQUE: Portable AP view of the chest FINDINGS: The mediastinum and cardiac silhouette are stable including cardiomegaly with prior sternotomy and CABG. The lung hawk demonstrate chronic appearing changes. A very subtle diffuse reticulonodular pattern appears new/more prominent than prior examination. Finding is nonspecific but differential diagnosis includes miliary infectious process as well as neoplastic changes. No discrete focal consolidation. Cannot exclude small right pleural effusion. No pneumothorax. Skeletal structures are intact. IMPRESSION: Chronic stable changes. Subtle suspected new reticulonodular changes throughout the lung hawk and possible small right pleural effusion. Clinical correlation is required. Consider chest CT for further investigation if the patient remains symptomatic. <Electronically signed by Reynaldo Patel > 01/01/21 [id number]
--- NOTE | 2021-01-01 12:36 | SMCUROLCON ---
Urology Consultation General Date of Consultation 01/01/21 Reason For Consultation This patient is seen for Blood In Urine. History of Present Illness The patient is a -year-old with a past medical history for . Allergies Allergies: Coded Allergies: prednisone (Verified Allergy, Unknown, 12/08/20) Vital Signs/I&O Vital Signs Date Time Temp Pulse Resp B/P (MAP) Pulse Ox O2 Delivery O2 Flow Rate FiO2 01/01/21 10:16 01/01/21 09:48 97.4 74 20 98 Room Air Laboratory Data 24H Labs Laboratory Tests 2 01/01/21 11:04: Nucleated Red Blood Cells % (auto) 0.0, Anion Gap 6L, Glomerular Filtration Rate 31.7L, Calcium Level 7.9L CBC/BMP Laboratory Tests 01/01/21 11:04 Assessment Patient known to urology. 75-year-old gentleman. Radiation in the past for prostate cancer. Cystoscopy clot evacuation for gross hematuria by Dr. Redman December 11, 2020. Presents to the ER today because of gross hematuria. Apparently he recently restarted his Plavix. Three-way catheter placed in the emergency room. Gross hematuria with clots. Hemoglobin has dropped to 5.8. The plan is transfusion. Creatinine 2.16 which is about baseline, for at least the last many months. Emergency room called me just a few minutes ago. The plan is cystoscopy with clot evacuation under general anesthesia. Patient to be transfused. Needs Covid testing. To remain n.p.o. I talked with the OR charge nurse. I am available from about 4 PM on. I will talk to the patient before surgery. YANE GARCIA MD Jan 01, 2021 12:36
[2021-01-01] MEDS ORDERED: FERR324T2 PO (12:45)
[2021-01-01] MEDS ORDERED: CIPR-250 PO (12:45)
[2021-01-01] MEDS ORDERED: ECOT81TA5 PO (12:45)
[2021-01-01 13:42] LABS: APPEARANCE, URINE MANUAL TURBID (CLEAR)
[2021-01-01 13:43] LABS: COLOR, URINE MANUAL RED (YELLOW)
[2021-01-01 13:49] LABS: PH,URINE MAN 5.5 UNITS (5.0 - 7.0)
[2021-01-01 13:50] LABS: BILIRUBIN, URINE MANUAL OBSCURED (NEGATIVE); BLOOD URINE MANUAL POSITIVE (NEGATIVE); GLUCOSE, URINE (UA) MANUAL NEGATIVE (NEGATIVE); KETONE, URINE MANUAL OBSCURED mg/dL (NEGATIVE); LEUKOCYTE ESTERASE, URINE MAN POSITIVE (NEGATIVE); NITRITE, URINE MANUAL OBSCURED (NEGATIVE); UROBILINOGEN, URINE MANUAL OBSCURED mg/dl (NORMAL)
[2021-01-01 14:03] LABS: PROTEIN, URINE MANUAL 3+ mg/dL (NEGATIVE)
[2021-01-01 14:09] LABS: RBC, URINE TNTC /hpf (0-3)
[2021-01-01] MEDS ORDERED: ACETAMINOPHEN TAB 650MG DOSE (2X325MG) PO PRN (14:15)
[2021-01-01] MEDS ORDERED: LORazepam 0.5 MG TAB PO PRN (14:15)
[2021-01-01] MEDS ORDERED: NITROGLYCERIN 0.4 MG SUBL TABLET SL PRN (14:15)
[2021-01-01 14:39] LABS: RENAL EPITHELIAL CELLS, URINE SMALL AMOUNT /hpf; SQUAMOUS EPITHELIAL CELL URINE SMALL AMOUNT /hpf (SMALL AMT); WBC, URINE 20-30 /hpf (0-3)
[2021-01-01 14:40] LABS: BACTERIA, URINE SMALL AMOUNT; HYALINE CAST, URINE NONE SEEN /lpf (0-1)
--- NOTE | 2021-01-01 14:49 | HPEPDOC ---
General Date of Admission January 01, 2021 Date of Service: Jan 01, 2021 Chief Complaint The patient is a 75-year-old male admitted with a reason for visit of Blood In Urine. Source: Patient History of Present Illness Mr. Cortez is a 75-year-old male with atrial fibrillation status post watchman procedure, CAD status post CABG x2 and stents, multiple CVAs, and prostate cancer status post resection and radiation who presents with symptomatic anemia secondary to gross hematuria. Patient was recently admitted from December 09 to December 12 for hematuria and urinary retention. Urology took patient to the OR on 12/11/2020 cystoscopy and cauterization. Patient was instructed to resume Plavix on 12/14/2020. Patient went home and did not have any hematuria. After starting the Plavix, he started to have hematuria which has darkened in color as time went on. Since then he has been transfused twice and seen his urologist in [place] twice. Recently started him on ciprofloxacin for UTI. This morning, patient was very weak and fatigued. He cannot ambulate to the bathroom. He felt l ightheaded and dizzy. He was brought to the ED for evaluation. He was found to have a hemoglobin of 5.8. Urology was consulted. Patient was put on continuous bladder irrigation. Urology plans to patient to the OR for cauterization. Otherwise patient being transfused with 2 units of blood at this time. Patient will be admitted for acute blood loss anemia secondary to gross hematuria. Home Medications Scheduled Aspirin (Ecotrin) 81 Mg Tablet.dr, 81 MG PO Q2D, (Reported) Brimonidine Tartrate/Timolol (Combigan 0.2%-0.5% Eye Drops) 1 Elise Elise, 1 DROP OU BID, (Reported) Calcitriol (Calcitriol) 0.25 Mcg Capsule, 0.25 MCG PO DAILY, (Reported) Cholecalciferol (Vitamin D3) (Vitamin D3) 50 Mcg Tablet, 50 MCG PO DAILY, (Reported) Ciprofloxacin HCl (Cipro) 250 Mg Tablet, 250 MG PO BID, (Reported) FILLED 12/28/20 FOR 7 DAYS Ferrous Sulfate (Ferrous Sulfate) 324 Mg Tablet.dr, 324 MG PO BID, (Reported) Furosemide (Furosemide) 20 Mg Tablet, 20 MG PO BID, (Reported) Latanoprost (Xalatan) 0.005% 2.5ML Drops, 1 DROP OU QHS, (Reported) Pantoprazole Sodium (Pantoprazole Sodium) 40 Mg Tablet.dr, 40 MG PO DAILY, (Reported) Rosuvastatin Calcium (Rosuvastatin Calcium) 40 Mg Tablet, 40 MG PO QHS, (Reported) Sertraline Hcl (Zoloft) 100 Mg Tablet, 100 MG PO DAILY, (Reported) Scheduled PRN Acetaminophen (Acetaminophen) 325 Mg Tab, 650 MG PO Q4H PRN for PAIN LEVEL 1-5, (Reported) Lorazepam (Ativan) 0.5 Mg Tablet, 0.5 MG PO Q4H PRN for ANXIETY/SHORTNESS OF BR EATH, (Reported) Nitroglycerin (Nitrostat) 0.4 Mg Subl, 0.4 MG SL NITRO PRN for CHEST PAIN, (Reported) Allergies Coded Allergies: prednisone (Verified Allergy, Unknown, 12/08/20) Past Medical History Medical History 1. Atrial fibrillation s/p watchman proceedure 2. CAD s/p CABG x2 and stent (most recent 06/2020 at [facility]) 3. Porcine AVR 4. Prostate cancer status post prostatectomy and radiation (complicated by radiation cystitis) 5. Multiple CVAs (left parietal lobe, bilateral cerebellar lobes, right temporal lobe) 6. Essential hypertension 7. Chronic small vessel ischemic disease 8. Dyslipidemia 9. GERD 10. CKD stage III 11. Anxiety and depression Surgical History 1. CABG x2 and cardiac stents (most recent placed in 06/2020 at [facility]) 2. Watchman procedure 3. Porcine AVR 4. Prostatectomy and radiation 5. Resection of SCC 6. Resection of adenomatous colonic polyp Family History Father: History of OR at 62 years old Mother: History of dementia Social History * Smoker: former Smoker Alcohol: occationally Drugs: denies A-FIB/CHADSVASC A-FIB History Current/History of A-Fib/PAF?: Yes Current PO Anticoag Therapy: No Treatment Reason Anticoagulant not given: Current bleeding Other reason anticoagulant not: Watchman procedure Review of Systems Constitutional: Reports: Weakness, Fatigue; Denies: Chills, Fever Eyes: Denies: Vision change ENT: Denies: Head Aches Skin: Denies: Rash Pulmonary: Denies: Dyspnea Cardiovascular: Denies: Chest Pain Gastrointestinal: Reports: Diarrhea (Patient reports being on Colace); Denies: Abdominal Pain Genitourinary: Reports: Dysuria, Hematuria Hematologic: Denies: Bruising Neurological: Denies: Numbness Psych: Reports: Anxiety Physical Examination General Exam: Positive: Alert, Cooperative Eye Exam: Positive: EOMI; Negative: Sclera icteric ENT Exam: Positive: Atraumatic Neck Exam: Positive: Supple Chest Exam: Positive: Clear to auscultation; Negative: Rales, Rhonchi, Wheezing Heart Exam: Positive: Rate Normal, Regular Rhythm Abdomen Exam: Positive: Normal bowel sounds, Soft; Negative: Tenderness Extremity Exam: Positive: Edema (Bilateral pitting edema) Neuro Exam: Positive: Normal Speech, Cranial Nerves 3-12 NL Psych Exam: Positive: Mental status NL, Mood NL Vital Signs Vital Signs Date Time Temp Pulse Resp B/P (MAP) Pulse Ox O2 Delivery O2 Flow Rate FiO2 01/01/21 13:58 97.9 74 25 134/63 100 Room Air Laboratory Data Labs 24H Laboratory Tests 2 01/01/21 11:04: Nucleated Red Blood Cells % (auto) 0.0, Anion Gap 6L, Glomerular Filtration Rate 31.7L, Calcium Level 7.9L 01/01/21 13:19: Bedside Urine Color (LAB) REDH, Bedside Urine Appearance (LAB) TURBIDH, Bedside Urine pH (LAB) 5.5, Bedside Urine Specific [place] (LAB 1.010, Bedside Urine Protein (LAB) 3+H, Bedside Urine Glucose (UA) NEGATIVE, Bedside Urine Ketones (LAB) OBSCUREDH, Bedside Urine Blood POSITIVEH, Bedside Urine Nitrite (LAB) OBSCUREDH, Bedside Urine Bilirubin (LAB) OBSCUREDH, Bedside Urine Urobilinogen (LAB) OBSCUREDH, Bedside Urine Leukocyte Esterase (L POSITIVEH CBC/BMP Laboratory Tests 01/01/21 11:04 Microbiology Microbiology 01/01/21 Urine Culture, Received Pending Assessment/Plan Mr. Cortez is a 75-year-old male with atrial fibrillation status post watchman procedure, CAD status post CABG x2 and stents, multiple CVAs, and prostate cancer status post resection and radiation who presents with symptomatic anemia secondary to gross hematuria. This may be secondary to dual antiplatelet therapy. Urology consulted and will be taking patient to the OR today. Recommendations appreciated. Otherwise hold aspirin and Plavix at this time. Patient would eventually need an antiplatelet agent for secondary prevention of CVAs and MIs. Plan / VTE VTE Prophylaxis Ordered?: Yes Plan Plan 1. Symptomatic blood loss anemia secondary to gross hematuria -Urology following, recommendations appreciated -CBI -Plan for OR for cauterization -Hold aspirin and Plavix -Continue iron 2. UTI -Diagnosed in [place] -Ciprofloxacin for 7 days -Day 10/07 -Urine culture repeated 3. Glaucoma -Continue timolol, latanoprost, and brimonidine 4. History of CAD and CVA -Hold aspirin -Continue rosuvastatin -Hold Lasix as patient is going to surgery now 5. Anxiety/Depression -Continue PRN lorazepam and sertralien 6. GERD -Continue pantoprazole 7. DVT ppx -No chemical ppx due to acute blood loss anemia -SCD and TEDs at this time Disposition: Pending surgery and stability of H&H SAPPHIRE RAYMOND DO Jan 01, 2021 14:49
[2021-01-01 15:29] LABS: RSV AMPLIFICATION NEGATIVE (NEGATIVE)
[2021-01-01] MEDS: CIPROFLOXACIN 250MG TAB PO ONE ×2 (16:00→16:28)
[2021-01-01] MEDS ORDERED: fentaNYL 100 MCG/2 ML INJECTION (J3010) As Ordered ONE (17:14)
[2021-01-01] MEDS ORDERED: LIDOCAINE 2% 100MG/5ML SDV (FOR ANES.) As Ordered ONE (17:14)
[2021-01-01] MEDS ORDERED: dexameTHASONE 4 MG/ML 1ML VIAL (J1100 PER 1MG) As Ordered ONE (17:14)
[2021-01-01] MEDS ORDERED: propofoL 200 MG/20 ML VIAL As Ordered ONE (17:14)
[2021-01-01] MEDS ORDERED: ONDANSETRON 4MG/2ML VIAL As Ordered ONE (17:14)
[2021-01-01] MEDS ORDERED: cefTRIAXone SOD 1GM VIAL (J0696 PER 250MG) As Ordered ONE (17:34)
[2021-01-01] MEDS ORDERED: ACETAMINOPHEN 1000MG 100ML IV BTL (OFIRMEV) (J0131 PER 10MG) As Ordered ONE (17:51)
--- NOTE | 2021-01-01 18:27 | IPNPDOC ---
Date Seen The patient was seen on 01/01/21. Progress Note s/p cysto with clot evacuation and fulguration of bleeding bladder completely filled with clot radiation cystitis with diffuse oozing noted plan is continuous irrigation must never fall behind on irrigation or put will end up in OR again pt has artificial urinary sphincter (aus) it is now deactivated which means the cuff is deflated and open aus must remain deactivated while catheter is in place no blood thinners catheter to remain until urology says otherwise thank you [phone] VS, I&O, 24H, Emily Vital Signs/I&O Vital Signs Date Time Temp Pulse Resp B/P (MAP) Pulse Ox O2 Delivery O2 Flow Rate FiO2 01/01/21 16:47 86 01/01/21 16:32 99 01/01/21 16:30 155/69 (97) 01/01/21 16:19 97.7 18 Room Air Laboratory Data 24H LABS Laboratory Tests 2 01/01/21 11:04: Nucleated Red Blood Cells % (auto) 0.0, Anion Gap 6L, Glomerular Filtration Rate 31.7L, Calcium Level 7.9L 01/01/21 13:19: Bedside Urine Color (LAB) REDH, Bedside Urine Appearance (LAB) TURBIDH, Bedside Urine pH (LAB) 5.5, Bedside Urine Specific [place] (LAB 1.010, Bedside Urine Protein (LAB) 3+H, Bedside Urine Glucose (UA) NEGATIVE, Bedside Urine Ketones (LAB) OBSCUREDH, Bedside Urine Blood POSITIVEH, Bedside Urine Nitrite (LAB) OBSCUREDH, Bedside Urine Bilirubin (LAB) OBSCUREDH, Bedside Urine Urobilinogen (LAB) OBSCUREDH, Bedside Urine Leukocyte Esterase (L POSITIVEH, Urine Sediment Examination PERFORMED, Urine RBC TNTCH, Urine WBC 20-30H, Urine Squamous Epithelial Cells SMALL AMOUNT, Urine Renal Epithelial Cells SMALL AMOUNTH, Urine Bacteria SMALL AMOUNTH, Urine Hyaline Casts NONE SEEN, Coronavirus (COVID- 19)(PCR) NEGATIVE, Influenza Type A (RT-PCR) NEGATIVE, Influenza Type B (RT-PCR) NEGATIVE, Respiratory Syncytial Virus (PCR) NEGATIVE CBC/BMP Laboratory Tests 01/01/21 11:04 Microbiology Microbiology 01/01/21 Urine Culture, Received Pending YANE GARCIA MD Jan 01, 2021 18:27
[2021-01-01] MEDS ORDERED: oxyCODONE 5MG TAB PO PRN (18:35)
[2021-01-01] MEDS ORDERED: ONDANSETRON 4MG/2ML VIAL IV PRN (18:35)
[2021-01-01] MEDS ORDERED: fentaNYL 100 MCG/2 ML INJECTION (J3010) IV PRN (18:35)
[2021-01-01] MEDS ORDERED: LR 1,000 ML IV SCH (18:35)
[2021-01-01 20:08] LABS: HEMATOCRIT 28.1 % (42.0-52.0); MEAN CORPUSCULAR HEMOGLOBIN 29.5 pg (27.0-33.0); MEAN CORPUSCULAR VOLUME 92.1 fl (80.0-96.0); PLATELET COUNT, AUTOMATED 189 10^3/uL (150-450); RED BLOOD COUNT 3.05 10^6/uL (4.30-6.10); WHITE BLOOD COUNT 15.6 10^3/uL (4.0-10.0)
--- NOTE | 2021-01-01 20:21 | ECGEPIP ---
[facility] - ED Test Date: 2021-01-01 Pat Name: AXEL CONLEY Department: Room: - Gender: Male [employer]: FABIO : 1945 Requested By: Raphael Mondragon Order Number: [id number] Reading MD: Raphael Gillette Measurements Intervals Mckean Rate: 80 P: 68 LA: 192 QRS: 61 QRSD: 90 T: 94 QT: 420 QTc: 484 Interpretive Statements Normal sinus rhythm Nonspecific ST and T wave abnormality Prolonged QT SIMILAR TO 08/22/17 Electronically Signed on 01-01-2021 20:20:55 EDT by Raphael Gillette
[2021-01-01] MEDS: cefTRIAXone SOD 1 GM in D5W MINI-BAG PLUS 50 ML IV SCH (20:39)
[2021-01-01] MEDS: ROSUVASTATIN 10 MG TAB (CRESTOR) PO SCH (20:43)
[2021-01-01] MEDS: TIMOLOL MALEATE 0.5% OPHTH SOLN 5 ML OU SCH (20:44)
[2021-01-01] MEDS: FERROUS SULFATE 325MG TAB PO SCH (20:44)
[2021-01-01] MEDS: oxyBUTYnin 5 MG TAB PO SCH (20:44)
[2021-01-01] MEDS: BRIMONIDINE 0.15% OPHTH SOLN 5 ML OU SCH (20:44)
[2021-01-01] MEDS: LATANOPROST 0.005% OPHTH SOLN 2.5 ML OU SCH (20:45)
[2021-01-02 00:30] VITALS: BP 104/60
[2021-01-02 02:00] VITALS: BP 109/66
[2021-01-02 06:00] VITALS: BP 117/58
[2021-01-02 06:15] LABS: HEMATOCRIT 25.8 % (42.0-52.0); HEMOGLOBIN 8.3 g/dl (13.5-17.5); MEAN CORPUSCULAR HEMOGLOBIN 29.3 pg (27.0-33.0); MEAN CORPUSCULAR HGB CONC 32.2 g/dl (32.0-36.5); MEAN CORPUSCULAR VOLUME 91.2 fl (80.0-96.0); PLATELET COUNT, AUTOMATED 171 10^3/uL (150-450); RED BLOOD COUNT 2.83 10^6/uL (4.30-6.10); WHITE BLOOD COUNT 14.5 10^3/uL (4.0-10.0)
[2021-01-02 06:38] LABS: CALCIUM LEVEL 7.9 MG/DL (8.8-10.2); CREATININE FOR GFR 1.81 MG/DL (0.70-1.30); GLOMERULAR FILTRATION RATE 38.9 (>42); POTASSIUM SERUM 4.1 MEQ/L (3.5-5.1)
[2021-01-02] MEDS: FERROUS SULFATE 325MG TAB PO SCH ×2 (08:53→20:08)
[2021-01-02] MEDS: SERTRALINE 100 MG TAB PO SCH (08:53)
[2021-01-02] MEDS: PANTOPRAZOLE 40MG TAB (PROTONIX) PO SCH (08:53)
[2021-01-02] MEDS: oxyBUTYnin 5 MG TAB PO SCH ×2 (08:53→20:08)
[2021-01-02] MEDS: BRIMONIDINE 0.15% OPHTH SOLN 5 ML OU SCH ×3 (08:53→20:09)
[2021-01-02] MEDS: TIMOLOL MALEATE 0.5% OPHTH SOLN 5 ML OU SCH ×2 (08:53→20:09)
[2021-01-02] MEDS: CALCITRIOL 0.25 MCG CAP (S0169) PO SCH (08:53)
[2021-01-02] MEDS ORDERED: CIPROFLOXACIN 500MG TABLET PO SCH (09:00)
[2021-01-02 10:00] VITALS: BP 136/58
[2021-01-02 10:25] LABS: HEMATOCRIT 24.8 % (42.0-52.0); MEAN CORPUSCULAR HEMOGLOBIN 29.5 pg (27.0-33.0); MEAN CORPUSCULAR HGB CONC 32.3 g/dl (32.0-36.5); MEAN CORPUSCULAR VOLUME 91.5 fl (80.0-96.0); PLATELET COUNT, AUTOMATED 173 10^3/uL (150-450); RED BLOOD COUNT 2.71 10^6/uL (4.30-6.10); WHITE BLOOD COUNT 15.3 10^3/uL (4.0-10.0)
--- NOTE | 2021-01-02 13:05 | IPNPDOC ---
Subjective Review oF Systems Chief Complaint The patient is a 75-year-old male admitted with a reason for visit of Hematuria, Radiation Cystitis, & Symptomatic Anemi. Events since Last Encounter No acute events o/n. Denies pain. Did not require manual irrigation o/n. No f/c/ns. Objective Physical Examination General Exam: Alert, Cooperative, No Acute Distress ABDOMEN EXAM: Soft; No: Tenderness Skin Exam: Nl turgor and temperature Neuro Exam: Normal Speech Psych Exam: Mental status NL, Mood NL Other physical findings [address] w/ CBI clamped and very light pink urine draining Vital Signs/I&O Vital Signs Date Time Temp Pulse Resp B/P (MAP) Pulse Ox O2 Delivery O2 Flow Rate FiO2 01/02/21 10:00 97.9 71 18 136/58 (84) 93 Room Air 01/01/21 18:30 8.0 I&O- Last 24 Hours up to 6 AM 01/02/21 06:00 Intake Total 7375 ml Output Total 8355 ml Balance -980 ml Laboratory Data Labs 24H Laboratory Tests 2 01/01/21 13:19: Bedside Urine Color (LAB) REDH, Bedside Urine Appearance (LAB) TURBIDH, Bedside Urine pH (LAB) 5.5, Bedside Urine Specific [place] (LAB 1.010, Bedside Urine Protein (LAB) 3+H, Bedside Urine Glucose (UA) NEGATIVE, Bedside Urine Ketones (LAB) OBSCUREDH, Bedside Urine Blood POSITIVEH, Bedside Urine Nitrite (LAB) OBSCUREDH, Bedside Urine Bilirubin (LAB) OBSCUREDH, Bedside Urine Urobilinogen (LAB) OBSCUREDH, Bedside Urine Leukocyte Esterase (L POSITIVEH, Urine Sediment Examination PERFORMED, Urine RBC TNTCH, Urine WBC 20-30H, Urine Squamous Epithelial Cells SMALL AMOUNT, Urine Renal Epithelial Cells SMALL AMOUNTH, Urine Bacteria SMALL AMOUNTH, Urine Hyaline Casts NONE SEEN, Coronavirus (COVID- 19)(PCR) NEGATIVE, Influenza Type A (RT-PCR) NEGATIVE, Influenza Type B (RT-PCR) NEGATIVE, Respiratory Syncytial Virus (PCR) NEGATIVE 01/01/21 19:49: Nucleated Red Blood Cells % (auto) 0.0 01/02/21 05:33: Nucleated Red Blood Cells % (auto) 0.0, Anion Gap 9, Glomerular Filtration Rate 38.9L, Calcium Level 7.9L 01/02/21 10:11: Nucleated Red Blood Cells % (auto) 0.0 CBC/BMP Laboratory Tests 01/01/21 19:49 01/02/21 05:33 01/02/21 10:11 Microbiology Microbiology 01/01/21 Urine Culture, Received Pending Assessment/Plan Date Seen The patient was seen on 01/02/21. 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 He is doing well this morning. His urine is pretty much clear w/ the irrigation off. Plan/VTE VTE Prophylaxis Ordered?: Yes VTE Exclusion Mechanical Proph: N/A:VTE Prophy Ordered Plan/Urinary Catheter Reason for insertion/continuin: Acute obstruct/retention Plan - disconnect CBI and plug irrigation port - manually irrigate the catheter w/ NS only if the catheter stops draining and there is concern for clot retention - ambulate - if catheter output remains pink or clearer and there is no need for manual irr igation through tomorrow morning, he can be discharged w/ plan for him to f/u w/ his urologist in 1-2 wks for catheter removal KEVIN MYLES MD Jan 02, 2021 13:05
[2021-01-02 14:00] VITALS: BP 137/57
--- NOTE | 2021-01-02 14:57 | IPNPDOC ---
Subjective Date Seen The patient was seen on 01/02/21. Subjective Chief Complaint/HPI Mr. Cortez is a 75-year-old male with atrial fibrillation status post watchman procedure, CAD status post CABG x2 and stents, multiple CVAs, and prostate cancer status post resection and radiation who presents with symptomatic anemia secondary to gross hematuria. On 01/01/21, patient was taken down to the OR by Dr. Zarate for cystoscopy with clot evacuation and cauterization of bleeding. This morning, patient fatigue and weakness improved. He denies any chest pain or dyspnea. Objective Physical Examination General Exam: Positive: Alert, Cooperative Eye Exam: Positive: EOMI; Negative: Sclera icteric ENT Exam: Positive: Atraumatic Neck Exam: Positive: Supple Chest Exam: Positive: Clear to auscultation; Negative: Rales, Rhonchi, Wheezing Abdomen Exam: Positive: Normal bowel sounds, Soft; Negative: Tenderness Extremity Exam: Positive: Edema (Bilateral pitting edema) Neuro Exam: Positive: Normal Speech, Cranial Nerves 3-12 NL Psych Exam: Positive: Mental status NL, Mood NL Assessment /Plan Assessment Mr. Cortez is a 75-year-old male with atrial fibrillation status post watchman procedure, CAD status post CABG x2 and stents, multiple CVAs, and prostate cancer status post resection and radiation who presents with symptomatic anemia secondary to gross hematuria. This may be secondary to dual antiplatelet therapy. Urology consulted and took patient to OR on 01/01 for cauterization. Otherwise hold aspirin and Plavix at this time. Plan/VTE VTE Prophylaxis Ordered?: Yes VTE Exclusion Mechanical Proph: N/A:VTE Prophy Ordered Plan/Urinary Catheter Reason for insertion/continuin: Acute obstruct/retention Plan 1. Symptomatic blood loss anemia secondary to gross hematuria -Urology following, recommendations appreciated -CBI -Went to OR on 01/01/21 for cauterization -Hold aspirin and Plavix -Continue iron 2. UTI -Diagnosed in [place] -Was on Cipro, now on ceftriaxone -Day 5 of antibiotics -Urine culture repeated 3. Glaucoma -Continue timolol, latanoprost, and brimonidine 4. History of CAD and CVA -Hold aspirin and Plavix -Continue rosuvastatin -Hold Lasix as patient is going to surgery now 5. Anxiety/Depression -Continue PRN lorazepam and sertraline 6. GERD -Continue pantoprazole 7. DVT ppx -No chemical ppx due to acute blood loss anemia -SCD and TEDs at this time Disposition: Pending clinical improvement and stability of H&H VS, I&O, 24H, Fishbone Vital Signs/I&O Vital Signs Date Time Temp Pulse Resp B/P (MAP) Pulse Ox O2 Delivery O2 Flow Rate FiO2 01/02/21 10:00 97.9 71 18 136/58 (84) 93 Room Air 01/01/21 18:30 8.0 I&O- Last 24 Hours up to 6 AM 01/02/21 06:00 Intake Total 7375 ml Output Total 8355 ml Balance -980 ml Laboratory Data 24H LABS Laboratory Tests 2 01/01/21 19:49: Nucleated Red Blood Cells % (auto) 0.0 01/02/21 05:33: Nucleated Red Blood Cells % (auto) 0.0, Anion Gap 9, Glomerular Filtration Rate 38.9L, Calcium Level 7.9L 01/02/21 10:11: Nucleated Red Blood Cells % (auto) 0.0 CBC/BMP Laboratory Tests 01/01/21 19:49 01/02/21 05:33 01/02/21 10:11 Microbiology Microbiology 01/01/21 Urine Culture, Received Pending SAPPHIRE RAYMOND DO Jan 02, 2021 14:57
[2021-01-02 16:04] LABS: HEMATOCRIT 25.4 % (42.0-52.0); MEAN CORPUSCULAR HEMOGLOBIN 29.1 pg (27.0-33.0); MEAN CORPUSCULAR HGB CONC 31.5 g/dl (32.0-36.5); MEAN CORPUSCULAR VOLUME 92.4 fl (80.0-96.0); PLATELET COUNT, AUTOMATED 174 10^3/uL (150-450); RED BLOOD COUNT 2.75 10^6/uL (4.30-6.10); WHITE BLOOD COUNT 15.3 10^3/uL (4.0-10.0)
[2021-01-02] MEDS: cefTRIAXone SOD 1 GM in D5W MINI-BAG PLUS 50 ML IV SCH (18:32)
[2021-01-02] MEDS: ROSUVASTATIN 10 MG TAB (CRESTOR) PO SCH (20:08)
[2021-01-02] MEDS: LATANOPROST 0.005% OPHTH SOLN 2.5 ML OU SCH (20:09)
[2021-01-02 22:00] VITALS: BP 110/47
[2021-01-03 02:00] VITALS: BP 116/73
[2021-01-03 06:00] VITALS: BP 121/57
[2021-01-03 06:17] LABS: HEMATOCRIT 25.4 % (42.0-52.0); MEAN CORPUSCULAR HEMOGLOBIN 29.4 pg (27.0-33.0); MEAN CORPUSCULAR HGB CONC 31.5 g/dl (32.0-36.5); MEAN CORPUSCULAR VOLUME 93.4 fl (80.0-96.0); PLATELET COUNT, AUTOMATED 168 10^3/uL (150-450); RED BLOOD COUNT 2.72 10^6/uL (4.30-6.10); WHITE BLOOD COUNT 13.4 10^3/uL (4.0-10.0)
[2021-01-03 06:36] LABS: CREATININE FOR GFR 1.88 MG/DL (0.70-1.30); GLOMERULAR FILTRATION RATE 37.2 (>42); POTASSIUM SERUM 4.3 MEQ/L (3.5-5.1)
[2021-01-03 06:37] LABS: CALCIUM LEVEL 8.2 MG/DL (8.8-10.2)
[2021-01-03] MEDS: SERTRALINE 100 MG TAB PO SCH (08:32)
[2021-01-03] MEDS: FERROUS SULFATE 325MG TAB PO SCH (08:32)
[2021-01-03] MEDS: oxyBUTYnin 5 MG TAB PO SCH (08:32)
[2021-01-03] MEDS: CALCITRIOL 0.25 MCG CAP (S0169) PO SCH (08:32)
[2021-01-03] MEDS: PANTOPRAZOLE 40MG TAB (PROTONIX) PO SCH (08:32)
[2021-01-03] MEDS: BRIMONIDINE 0.15% OPHTH SOLN 5 ML OU SCH (08:32)
[2021-01-03] MEDS: TIMOLOL MALEATE 0.5% OPHTH SOLN 5 ML OU SCH (08:33)
[2021-01-03] MEDS ORDERED: OXYB5TAB10 PO (09:18)
[2021-01-03] MEDS ORDERED: CEFD1CAP8 PO (09:18)
--- NOTE | 2021-01-03 17:08 | DS.PDOC ---
Discharge Summary General Date of Admission Jan 01, 2021 at 14:31 Date of Discharge Jan 03, 2021 Specialist/Consultants [facility], Dr. Zarate and Dr. Redman Discharge Summary PROCEDURES PERFORMED DURING STAY: Cystoscopy, clot evaluation, and cauterization on 01/01/21 ADMITTING DIAGNOSES: 1. Symptomatic blood loss anemia secondary to gross hematuria 2. UTI 3. Glaucoma 4. History of CAD and CVA 5. Anxiety and depression 6. GERD DISCHARGE DIAGNOSES: 1. Symptomatic blood loss anemia secondary to gross hematuria 2. UTI 3. Glaucoma 4. History of CAD and CVA 5. Anxiety and depression 6. GERD COMPLICATIONS/CHIEF COMPLAINT: Hematuria, Radiation Cystitis, & Symptomatic Anemi. HISTORY OF PRESENT ILLNESS: Mr. Cortez is a 75-year-old male with atrial fibrillation status post watchman procedure, CAD status post CABG x2 and stents, multiple CVAs, and prostate cancer status post resection and radiation who presents with symptomatic anemia secondary to gross hematuria. Patient was recently admitted from December 09 to December 12 for hematuria and urinary retention. Urology took patient to the OR on 12/11/2020 cystoscopy and cauterization. Patient was instructed to resume Plavix on 12/14/2020. Patient went home and did not have any hematuria. After starting the Plavix, he started to have hematuria which has darkened in color as time went on. Since then he has been transfused twice and seen his urologist in [facility] twice. Recently started him on ciprofloxacin for UTI. This morning, patient was very weak and fatigued. He cannot ambulate to the bathroom. He felt lightheaded and dizzy. He was brought to the ED for evaluation. He was found to have a hemoglobin of 5.8. Urology was consulted. Patient was put on continuous bladder irrigation. Urology plans to patient to the OR for cauterization. Otherwise patient being transfused with 2 units of blood at this time. Patient will be admitted for acute blood loss anemia secondary to gross hematuria. HOSPITAL COURSE: Patient did well after surgery. Maldonado catheter was kept and urine was eventually clear. Patient had been transfused with 2u pRBC and felt better afterwards. This morning, he felt well and felt ready for home. I spoke with Urology, Dr. Redman. Okay to resume aspirin today. Patient to keep Maldonado catheter in until he sees his urologist. DISCHARGE MEDICATIONS: Please see below. ALLERGIES: Please see below. PHYSICAL EXAMINATION ON DISCHARGE: VITAL SIGNS: Please see below. GENERAL: Comfortable, in no apparent distress HEENT: Head normocephalic, atraumatic, sclera clear NECK: Supple CARDIOVASCULAR EXAMINATION: Regular rate and rhythm RESPIRATORY EXAMINATION: Clear to auscultation bilaterally ABDOMINAL EXAMINATION: Sot, nontender, normal bowel sounds EXTREMITIES: Bilateral pitting edema NEUROLOGICAL EXAMINATION: CN 3-12 grossly intact PSYCHIATRIC EXAMINATION: Normal mood and affect LABORATORY DATA: Please see below. IMAGING: Radiologist interpretation CXR Chronic stable changes. Subtle suspected new reticulonodular changes throughout the lung hawk and possible small right pleural effusion. Clinical correlation is required. Consider chest CT for further investigation if the patient remains symptomatic. PROGNOSIS: Good ACTIVITY: As tolerated. DIET: As tolerated DISCHARGE PLAN: Home DISPOSITION: 01 Home, Self-Care. DISCHARGE INSTRUCTIONS: 1. Follow up with PCP in 1 week 2. Follow up with urology in 1 to 2 weeks 3. Take antibiotics to completion ITEMS TO FOLLOWUP ON ON OUTPATIENT: 1. Consider outpatient CT chest for reticulonodular changes DISCHARGE CONDITION: Stable Total time spent on discharge planning, discharge summary, and medication reconciliation: 45 minutes Vital Signs/I&Os Vital Signs Date Time Temp Pulse Resp B/P (MAP) Pulse Ox O2 Delivery O2 Flow Rate FiO2 01/03/21 06:00 97.8 99 18 121/57 (78) 92 Room Air 01/01/21 18:30 8.0 I&O- Last 24 Hours up to 6 AM 01/03/21 06:00 Intake Total 2140 ml Output Total 1850 ml Balance 290 ml Laboratory Data Labs 24H Laboratory Tests 2 01/03/21 05:32: Nucleated Red Blood Cells % (auto) 0.0, Anion Gap 7L, Glomerular Filtration Rate 37.2L, Calcium Level 8.2L CBC/BMP Laboratory Tests 01/03/21 05:32 Microbiology Microbiology 01/01/21 Urine Culture, Received Pending Discharge Medications Scheduled Aspirin (Ecotrin) 81 Mg Tablet.dr, 81 MG PO Q2D, (Reported) Brimonidine Tartrate/Timolol (Combigan 0.2%-0.5% Eye Drops) 1 Elise Elise, 1 DROP OU BID, (Reported) Calcitriol (Calcitriol) 0.25 Mcg Capsule, 0.25 MCG PO DAILY, (Reported) Cefdinir (Cefdinir) 300 Mg Capsule, 300 MG PO BID Cholecalciferol (Vitamin D3) (Vitamin D3) 50 Mcg Tablet, 50 MCG PO DAILY, (Reported) Ferrous Sulfate (Ferrous Sulfate) 324 Mg Tablet.dr, 324 MG PO BID, (Reported) Furosemide (Furosemide) 20 Mg Tablet, 20 MG PO BID, (Reported) Latanoprost (Xalatan) 0.005% 2.5ML Drops, 1 DROP OU QHS, (Reported) Oxybutynin Chloride (Oxybutynin Chloride) 5 Mg Tablet, 5 MG PO BID Pantoprazole Sodium (Pantoprazole Sodium) 40 Mg Tablet.dr, 40 MG PO DAILY, (Reported) Rosuvastatin Calcium (Rosuvastatin Calcium) 40 Mg Tablet, 40 MG PO QHS, (Reported) Sertraline Hcl (Zoloft) 100 Mg Tablet, 100 MG PO DAILY, (Reported) Scheduled PRN Acetaminophen (Acetaminophen) 325 Mg Tab, 650 MG PO Q4H PRN for PAIN LEVEL 1-5, (Reported) Lorazepam (Ativan) 0.5 Mg Tablet, 0.5 MG PO Q4H PRN for ANXIETY/SHORTNESS OF BREATH, (Reported) Nitroglycerin (Nitrostat) 0.4 Mg Subl, 0.4 MG SL NITRO PRN for CHEST PAIN, (Reported) Allergies Coded Allergies: prednisone (Verified Allergy, Unknown, 12/08/20) SAPPHIRE RAYMOND DO Jan 03, 2021 17:08
--- NOTE | 2021-01-05 14:47 | ROOPDOC ---
[facility] Report Of Operation Report of Operation DATE OF PROCEDURE: 01/01/21 PREPROCEDURE DIAGNOSES: [Gross hematuria with clots, recent cystoscopy with clot evacuation for the same, radiation cystitis]. POSTPROCEDURE DIAGNOSES: [Same]. PROCEDURE PERFORMED: [Cystoscopy with clot evacuation and fulguration of bladder mucosal bleeding, removal/replacement of 3-way urethral catheter]. SURGEON: [Curry Garcia, SHORE MAN: [None], MD ANESTHESIA: [General]. ESTIMATED BLOOD LOSS: Approximately [5 cc] mL. COMPLICATIONS: [None]. REMARKS: . FINDINGS: [Radiation cystitis with several mucosal areas oozing] SPECIMENS REMOVED: [None] PROCEDURE NOTE: [75-year-old white male. Gross hematuria with clots. Recent cystoscopy with clot evacuation. Radiation cystitis was the problem. Gross hematuria resolved though now it has returned. Continuous bladder irrigation was unsuccessful in stopping the bleeding. Surgery was arranged. Informed consent was obtained. Risks were discussed such as infection, bleeding, pain, scarring, injury to the urinary tract, failure of surgery, need for more surgery , risks of anesthesia and others.]. DESCRIPTION OF PROCEDURE: [I met with the patient in the preop area. Surgery discussed. Questions answered. Patient wished to proceed. Patient brought to the OR. General anesthesia was secured without difficulty. Timeout performed. Surgery done under antimicrobial coverage. Dorsolithotomy position. Well- padded. Three-way catheter removed. Prepping and draping performed in the usual sterile fashion. Patient has an artificial urinary sphincter. I deactivated it. I attempted to pass a resectoscope sheath with help from its obturator. I was unable to negotiate the meatus. The meatus was dilated with Ernie sounds. After this I had no trouble in passing the resectoscope sheath with its obturator. The obturator used was a visual obturator. It was difficult to get into the bladder. Tissues are fixed because of past radiation. Difficult to get through the bladder neck. History of prostatectomy followed by radiation. The bladder was filled with clots. It took a long time to irrigate the bladder free of clots. I used a Ana syringe. Usual evacuator did not allow for sufficient suction. Ultimately I was able to clear the bladder. It was difficult to see because of oozing from several areas. Radiation cystitis changes noted. With a button I secured hemostasis as best I could. Many areas were cauterized. Once satisfied a new three-way catheter 22 [place] was placed. Continuous bladder irrigation was started immediatel. Patient tolerated everything well left the room in satisfactory condition. The artificial urinary sphincter was left deactivated.] YANE GARCIA MD Jan 05, 2021 14:47
== END 2021-01-03 11:30 | disposition home or self-care (01) | DRG 663 ==
LOC: M ED 09:47 → M ED INP 14:31 → ENRESERV 15:12 → M MSPAV 19:31
PROVIDERS: ADMIT Internal Medicine; ATTEND Internal Medicine
PROC: 0T5B4ZZ Destruction of Bladder, Percutaneous Endoscopic Approach (ICD-10-PCS; 2021-01-01)
PROC: 0TCB8ZZ Extirpation of Matter from Bladder, Via Natural or Artificial Opening Endoscopic (ICD-10-PCS; 2021-01-01)
PROC: 30233N1 Transfusion of Nonautologous Red Blood Cells into Peripheral Vein, Percutaneous Approach (ICD-10-PCS; 2021-01-01)
PROC: 0W3R8ZZ Control Bleeding in Genitourinary Tract, Via Natural or Artificial Opening Endoscopic (ICD-10-PCS; principal; 2021-01-01 16:00)
DX: N30.41 Irradiation cystitis with hematuria (principal); D62 Acute posthemorrhagic anemia; I48.91 Unspecified atrial fibrillation; I25.10 Atherosclerotic heart disease of native coronary artery without angina pectoris; Z95.5 Presence of coronary angioplasty implant and graft; Z86.73 Personal history of transient ischemic attack (TIA), and cerebral infarction without residual deficits; Z85.46 Personal history of malignant neoplasm of prostate; Z92.3 Personal history of irradiation; Z79.82 Long term (current) use of aspirin; Z79.01 Long term (current) use of anticoagulants; Z79.899 Other long term (current) drug therapy; H40.9 Unspecified glaucoma; F41.9 Anxiety disorder, unspecified; F32.9 Major depressive disorder, single episode, unspecified; K21.9 Gastro-esophageal reflux disease without esophagitis; I12.9 Hypertensive chronic kidney disease with stage 1 through stage 4 chronic kidney disease, or unspecified chronic kidney disease; N18.30 Chronic kidney disease, stage 3 unspecified; Z20.822 Contact with and (suspected) exposure to COVID-19; R33.9 Retention of urine, unspecified; Z95.1 Presence of aortocoronary bypass graft; Z88.8 Allergy status to other drugs, medicaments and biological substances; Z87.891 Personal history of nicotine dependence; Z96.89 Presence of other specified functional implants

== ENCOUNTER → 2021-03-25 | Outpatient (CLI) | payer MEDICARE ==
[~2021-03-25] MED LIST changes: +CEFD1CAP8 PO; +CIPR-250 PO; +ECOT81TA5 PO; +FERR324T2 PO; +OXYB5TAB10 PO
== END ==
LOC: M PLALAB 09:24
PROVIDERS: ATTEND Urology
DX: C61 Malignant neoplasm of prostate (principal)

== ENCOUNTER → 2021-06-18 | Outpatient (REF) | payer MEDICARE ==
[2021-06-18 16:37] LABS: APPEARANCE, URINE CLOUDY (CLEAR); BACTERIA, URINE AUTO 1+ (NEGATIVE); BILIRUBIN, URINE AUTO NEGATIVE (NEGATIVE); BLOOD, URINE BLOOD NEGATIVE (NEGATIVE); COLOR, URINE YELLOW (YELLOW); GLUCOSE, URINE (UA) AUTO NEGATIVE (NEGATIVE); KETONE, URINE AUTO NEGATIVE (NEGATIVE); LEUKOCYTE ESTERASE, URINE AUTO 3+ (NEGATIVE); MUCUS, URINE SMALL (NEGATIVE); NITRITE, URINE AUTO NEGATIVE (NEGATIVE); PROTEIN, URINE AUTO 1+ mg/dL (NEGATIVE); RBC, URINE AUTO 8 /HPF (0-3); SQUAMOUS EPITHELIAL CELL UR AU 0 /HPF (0-6); UROBILINOGEN, URINE AUTO 0.2 mg/dL (0.0-2.0); WBC, URINE AUTO 134 /HPF (0-3)
== END ==
LOC: M LAB REF 16:09
PROVIDERS: ATTEND Internal Medicine
DX: Z01.812 Encounter for preprocedural laboratory examination (principal); Z79.899 Other long term (current) drug therapy

== ENCOUNTER → 2021-07-07 | Outpatient (REF) | payer MEDICARE | LOC: M LAB REF 17:06 | PROVIDERS: ATTEND Internal Medicine | DX: R32 Unspecified urinary incontinence (principal) ==

== ENCOUNTER → 2021-08-05 | Outpatient (CLI) | payer MEDICARE ==
[~2021-08-05] MED LIST changes: -CEFD1CAP8 PO; +CEFD300C41 PO; +CYSTO-CONRAY II 17.2% 250ML VIAL (Q9958) As Ordered ONE; +CYSTO-CONRAY II 17.2% 250ML VIAL (Q9958) ONE
== END ==
LOC: M RAD 13:09
PROVIDERS: ATTEND Urology
DX: T83.12 Displacement of other urinary devices and implants (principal); Y84.8 Other medical procedures as the cause of abnormal reaction of the patient, or of later complication, without mention of misadventure at the time of the procedure
CPT/HCPCS: 74430; C1887; Q9958

== ENCOUNTER → 2021-08-16 | Outpatient (REF) | payer MEDICARE ==
[~2021-08-16] MED LIST changes: -CYSTO-CONRAY II 17.2% 250ML VIAL (Q9958) As Ordered ONE; -CYSTO-CONRAY II 17.2% 250ML VIAL (Q9958) ONE
[2021-08-16 21:41] LABS: ATYPICAL LYMPH 1 % (0-5); EOSINOPHILS 4 % (0-3)
[2021-08-16 21:43] LABS: LYMPHOCYTES 6 % (16-44); PLATELET ESTIMATE NORMAL (NORMAL)
[2021-08-16 21:46] LABS: ANISOCYTOSIS 1+; OVALOCYTES 1+
[2021-08-16 21:47] LABS: MONOCYTES 7 % (0-5); NEUTROPHILS 82 % (28-66)
== END ==
LOC: M LAB REF 16:11
PROVIDERS: ATTEND Internal Medicine
DX: D72.9 Disorder of white blood cells, unspecified (principal)

== ENCOUNTER → 2021-08-23 | Outpatient (REF) | payer MEDICARE ==
[2021-08-23 19:21] LABS: APPEARANCE, URINE MANUAL HAZY (CLEAR); BILIRUBIN, URINE MANUAL NEGATIVE (NEGATIVE); BLOOD URINE MANUAL POSITIVE (NEGATIVE); COLOR, URINE MANUAL LT YELLOW (YELLOW); GLUCOSE, URINE (UA) MANUAL NEGATIVE (NEGATIVE); KETONE, URINE MANUAL NEGATIVE (NEGATIVE); LEUKOCYTE ESTERASE, URINE MAN POSITIVE (NEGATIVE); NITRITE, URINE MANUAL NEGATIVE (NEGATIVE); PROTEIN, URINE MANUAL NEGATIVE (NEGATIVE); UROBILINOGEN, URINE MANUAL NORMAL (NORMAL)
[2021-08-23 19:23] LABS: BACTERIA, URINE SMALL AMOUNT; HYALINE CAST, URINE 0-1 /lpf (0-1); SQUAMOUS EPITHELIAL CELL URINE SMALL AMOUNT /hpf (SMALL AMT)
[2021-08-23 19:24] LABS: YEAST, URINE MOD AMOUNT
== END ==
LOC: M LAB REF 16:12
PROVIDERS: ATTEND Internal Medicine
DX: N39.0 Urinary tract infection, site not specified (principal)

== ENCOUNTER → 2021-09-07 | Outpatient (CLI) | payer MEDICARE ==
[2021-09-07 17:34] LABS: BASO # 0.1 10^3/uL (0.0-0.2); BASO % 0.8 % (0.0-1.0); EOS # 0.1 10^3/uL (0.0-0.5); EOS % 1.3 % (0.0-3.0); HEMATOCRIT 39.7 % (42.0-52.0); HEMOGLOBIN 12.3 g/dl (13.5-17.5); LYMPH # 0.8 10^3/uL (1.5-5.0); LYMPH % 8.7 % (24.0-44.0); MEAN CORPUSCULAR HEMOGLOBIN 31.2 pg (27.0-33.0); MEAN CORPUSCULAR VOLUME 100.8 fl (80.0-96.0); MONO # 1.1 10^3/uL (0.0-0.8); MONO % 12.4 % (2.0-8.0); NEUTROPHILS # 6.6 10^3/uL (1.5-8.5); NEUTROPHILS % 76.5 % (36.0-66.0); PLATELET COUNT, AUTOMATED 157 10^3/uL (150-450); RED BLOOD COUNT 3.94 10^6/uL (4.30-6.10); WHITE BLOOD COUNT 8.6 10^3/uL (4.0-10.0)
[2021-09-07 17:51] LABS: CALCIUM LEVEL 9.7 MG/DL (8.8-10.2); CREATININE FOR GFR 2.24 MG/DL (0.70-1.30); GLOMERULAR FILTRATION RATE 30.4 (>42); POTASSIUM SERUM 4.1 MEQ/L (3.5-5.1)
== END ==
LOC: M PLALAB 13:58
PROVIDERS: ATTEND Internal Medicine Cardiovascular Disease
DX: I20.9 Angina pectoris, unspecified (principal); I48.0 Paroxysmal atrial fibrillation

== ENCOUNTER → 2021-09-17 | Outpatient (CLI) | payer MEDICARE ==
[2021-09-17 15:24] LABS: BASO # 0.1 10^3/uL (0.0-0.2); BASO % 0.7 % (0.0-1.0); EOS # 0.2 10^3/uL (0.0-0.5); EOS % 3.1 % (0.0-3.0); HEMATOCRIT 38.7 % (42.0-52.0); HEMOGLOBIN 12.5 g/dl (13.5-17.5); LYMPH # 0.7 10^3/uL (1.5-5.0); LYMPH % 9.5 % (24.0-44.0); MEAN CORPUSCULAR HEMOGLOBIN 31.3 pg (27.0-33.0); MEAN CORPUSCULAR HGB CONC 32.3 g/dl (32.0-36.5); MONO % 13.3 % (2.0-8.0); NEUTROPHILS # 5.2 10^3/uL (1.5-8.5); NEUTROPHILS % 73.3 % (36.0-66.0); PLATELET COUNT, AUTOMATED 192 10^3/uL (150-450); RED BLOOD COUNT 3.99 10^6/uL (4.30-6.10); WHITE BLOOD COUNT 7.1 10^3/uL (4.0-10.0)
[2021-09-17 15:44] LABS: CALCIUM LEVEL 9.8 MG/DL (8.8-10.2); CREATININE FOR GFR 2.11 MG/DL (0.70-1.30); GLOMERULAR FILTRATION RATE 32.6 (>42); POTASSIUM SERUM 4.2 MEQ/L (3.5-5.1)
== END ==
LOC: M LAB 14:25
PROVIDERS: ATTEND Internal Medicine
DX: R06.02 Shortness of breath (principal)

== ENCOUNTER → 2021-09-24 | Outpatient (CLI) | payer MEDICARE ==
[2021-09-24 15:25] LABS: CREATININE FOR GFR 1.99 MG/DL (0.70-1.30); GLOMERULAR FILTRATION RATE 34.9 (>42)
== END ==
LOC: M PLALAB 13:36
PROVIDERS: ATTEND Internal Medicine Cardiovascular Disease
DX: R79.89 Other specified abnormal findings of blood chemistry (principal)

== ENCOUNTER → 2021-09-24 | Outpatient (REF) | payer MEDICARE | LOC: M PLALAB 12:10 | PROVIDERS: ATTEND Urology | DX: C61 Malignant neoplasm of prostate (principal) ==

== ENCOUNTER 2021-10-08 15:35 | Inpatient (IN) | payer MEDICARE ==
[~2021-10-08] VITALS: Ht 172.7 cm; Wt 62.6 kg
[2021-10-08 17:10] LABS: BASO # 0.1 10^3/uL (0.0-0.2); BASO % 0.5 % (0.0-1.0); EOS # 0.1 10^3/uL (0.0-0.5); EOS % 0.7 % (0.0-3.0); LYMPH # 0.5 10^3/uL (1.5-5.0); LYMPH % 5.1 % (24.0-44.0); MEAN CORPUSCULAR HEMOGLOBIN 31.5 pg (27.0-33.0); MEAN CORPUSCULAR HGB CONC 32.4 g/dl (32.0-36.5); MEAN CORPUSCULAR VOLUME 97.1 fl (80.0-96.0); MONO # 1.2 10^3/uL (0.0-0.8); MONO % 11.1 % (2.0-8.0); NEUTROPHILS # 8.8 10^3/uL (1.5-8.5); NEUTROPHILS % 82.2 % (36.0-66.0); PLATELET COUNT, AUTOMATED 217 10^3/uL (150-450); RED BLOOD COUNT 3.81 10^6/uL (4.30-6.10); WHITE BLOOD COUNT 10.7 10^3/uL (4.0-10.0)
[2021-10-08 17:28] LABS: ALBUMIN 3.1 GM/DL (3.2-5.2); BILIRUBIN,DIRECT 0.2 MG/DL (0.0-0.2); BILIRUBIN,TOTAL 0.6 MG/DL (0.2-1.0); CALCIUM LEVEL 9.6 MG/DL (8.8-10.2); CK-MB VALUE MASS < 1.0 NG/ML (<3.6); CPK CREATINE PHOSPHOKINASE 39 U/L (39-308); CREATININE FOR GFR 2.01 MG/DL (0.70-1.30); GLOMERULAR FILTRATION RATE 34.5 (>42); MB/CK RELATIVE INDEX 2.56 (< OR =4); POTASSIUM SERUM 4.3 MEQ/L (3.5-5.1); TOTAL PROTEIN 7.6 GM/DL (6.4-8.2)
[2021-10-08] MEDS ORDERED: FUROSEMIDE 40MG/4ML VIAL (J1940) IV ONE (18:20)
[2021-10-08] MEDS ORDERED: METO1TAB87 PO (18:33)
[2021-10-08] MEDS ORDERED: BUPR150T12 PO (18:33)
[2021-10-08] MEDS ORDERED: MIRT1TAB PO (18:33)
[2021-10-08] MEDS ORDERED: FURO20TA2 PO (18:33)
[2021-10-08] MEDS ORDERED: HOME MED LIST COMPLETE! XX SCH (18:40)
[2021-10-08 20:09] LABS: RSV AMPLIFICATION NEGATIVE (NEGATIVE)
[2021-10-08] MEDS ORDERED: LORazepam 0.5 MG TAB PO PRN (21:05)
[2021-10-08] MEDS ORDERED: MAALOX 30 ML SUSP *UDC PO PRN (21:05)
[2021-10-08] MEDS ORDERED: NITROGLYCERIN 0.4 MG SUBL TABLET SL PRN (21:05)
[2021-10-08] MEDS ORDERED: ACETAMINOPHEN TAB 650MG DOSE (2X325MG) PO PRN (21:05)
[2021-10-08] MEDS ORDERED: MOM 30ML SUSPENSION UDC PO PRN (21:05)
[2021-10-08] MEDS: LATANOPROST 0.005% OPHTH SOLN 2.5 ML OU SCH (22:15)
[2021-10-08] MEDS: METOPROLOL TART 12.5 MG PER 1/2 TAB PO SCH (22:30)
[2021-10-09] VITALS (7 sets, daily range): BP systolic 124–128; BP diastolic 57–68; O2SAT 91–96
[2021-10-09] MEDS: MIRTAZAPINE 7.5MG PER 1/2 TABLET PO SCH ×2 (04:00→20:32)
[2021-10-09] MEDS ORDERED: FUROSEMIDE 20MG/2ML VIAL (J1940) IV SCH (06:00)
[2021-10-09 07:01] LABS: HEMATOCRIT 38.9 % (42.0-52.0); HEMOGLOBIN 12.7 g/dl (13.5-17.5); MEAN CORPUSCULAR HEMOGLOBIN 31.1 pg (27.0-33.0); MEAN CORPUSCULAR HGB CONC 32.6 g/dl (32.0-36.5); MEAN CORPUSCULAR VOLUME 95.3 fl (80.0-96.0); PLATELET COUNT, AUTOMATED 218 10^3/uL (150-450); RED BLOOD COUNT 4.08 10^6/uL (4.30-6.10)
[2021-10-09 07:35] LABS: CALCIUM LEVEL 9.9 MG/DL (8.8-10.2); CREATININE FOR GFR 2.23 MG/DL (0.70-1.30); GLOMERULAR FILTRATION RATE 30.6 (>42); MAGNESIUM LEVEL 2.6 MG/DL (1.8-2.4); POTASSIUM SERUM 3.4 MEQ/L (3.5-5.1)
[2021-10-09 08:05] LABS: CK-MB VALUE MASS < 1.0 NG/ML (<3.6); CPK CREATINE PHOSPHOKINASE 47 U/L (39-308); MB/CK RELATIVE INDEX 2.13 (< OR =4)
[2021-10-09] MEDS: TIMOLOL MALEATE 0.5% OPHTH SOLN 5 ML OU SCH ×2 (08:08→20:30)
[2021-10-09] MEDS: BRIMONIDINE 0.15% OPHTH SOLN 5 ML OU SCH ×3 (08:08→20:34)
[2021-10-09] MEDS: HEPARIN SOD (PORCINE) 5000UNITS/ML 1ML VIAL/SYRINGE SQ SCH ×3 (08:08→20:38)
[2021-10-09] MEDS: FERROUS SULFATE 325MG TAB PO SCH ×2 (08:10→20:29)
[2021-10-09] MEDS: PANTOPRAZOLE 40MG TAB (PROTONIX) PO SCH (08:10)
[2021-10-09] MEDS: CALCITRIOL 0.25 MCG CAP (S0169) PO SCH (08:10)
[2021-10-09] MEDS: VITAMIN D 1,000 INTERNATIONAL UNITS TABLET PO SCH (08:10)
[2021-10-09] MEDS: SERTRALINE 100 MG TAB PO SCH (08:10)
[2021-10-09] MEDS: buPROPion **XL** TABLET 150MG (WELLBUTRIN XL) PO SCH (08:11)
[2021-10-09] MEDS: METOPROLOL TART 12.5 MG PER 1/2 TAB PO SCH ×2 (08:11→20:30)
[2021-10-09] MEDS ORDERED: POTASSIUM CHLORIDE 10MEQ SR TABLET PO ONE (09:40)
[2021-10-09 14:09] LABS: CK-MB VALUE MASS < 1.0 NG/ML (<3.6); CPK CREATINE PHOSPHOKINASE 38 U/L (39-308); MB/CK RELATIVE INDEX 2.63 (< OR =4)
[2021-10-09] MEDS ORDERED: FUROSEMIDE 40MG/4ML VIAL (J1940) IV SCH (17:00)
[2021-10-09] MEDS: ROSUVASTATIN 10 MG TAB (CRESTOR) PO SCH (20:29)
[2021-10-09] MEDS: LATANOPROST 0.005% OPHTH SOLN 2.5 ML OU SCH (20:34)
[2021-10-10] MEDS: HEPARIN SOD (PORCINE) 5000UNITS/ML 1ML VIAL/SYRINGE SQ SCH ×3 (05:10→20:17)
[2021-10-10 05:28] VITALS: BP 136/76
[2021-10-10 06:46] LABS: HEMATOCRIT 37.7 % (42.0-52.0); HEMOGLOBIN 12.2 g/dl (13.5-17.5); MEAN CORPUSCULAR HEMOGLOBIN 31.2 pg (27.0-33.0); MEAN CORPUSCULAR HGB CONC 32.4 g/dl (32.0-36.5); MEAN CORPUSCULAR VOLUME 96.4 fl (80.0-96.0); PLATELET COUNT, AUTOMATED 206 10^3/uL (150-450); RED BLOOD COUNT 3.91 10^6/uL (4.30-6.10); WHITE BLOOD COUNT 12.1 10^3/uL (4.0-10.0)
[2021-10-10 07:11] LABS: CALCIUM LEVEL 9.6 MG/DL (8.8-10.2); CREATININE FOR GFR 2.26 MG/DL (0.70-1.30); GLOMERULAR FILTRATION RATE 30.1 (>42); MAGNESIUM LEVEL 2.5 MG/DL (1.8-2.4); POTASSIUM SERUM 4.1 MEQ/L (3.5-5.1)
[2021-10-10 08:00] VITALS: O2SAT 95
[2021-10-10] MEDS ORDERED: CLOPIDOGREL 75 MG TAB PO SCH (09:00)
[2021-10-10] MEDS: VITAMIN D 1,000 INTERNATIONAL UNITS TABLET PO SCH (10:06)
[2021-10-10] MEDS: ASPIRIN 81MG ENTERIC TABLET PO SCH (10:06)
[2021-10-10] MEDS: FERROUS SULFATE 325MG TAB PO SCH ×2 (10:06→20:17)
[2021-10-10] MEDS: buPROPion **XL** TABLET 150MG (WELLBUTRIN XL) PO SCH (10:06)
[2021-10-10] MEDS: CALCITRIOL 0.25 MCG CAP (S0169) PO SCH (10:06)
[2021-10-10] MEDS: SERTRALINE 100 MG TAB PO SCH (10:06)
[2021-10-10] MEDS: PANTOPRAZOLE 40MG TAB (PROTONIX) PO SCH (10:07)
[2021-10-10] MEDS: LATANOPROST 0.005% OPHTH SOLN 2.5 ML OU SCH ×2 (10:08→20:16)
[2021-10-10] MEDS: TIMOLOL MALEATE 0.5% OPHTH SOLN 5 ML OU SCH ×2 (10:08→20:16)
[2021-10-10] MEDS: METOPROLOL TART 25 MG TABLET PO SCH ×2 (10:08→20:19)
[2021-10-10] MEDS: BRIMONIDINE 0.15% OPHTH SOLN 5 ML OU SCH ×3 (10:09→20:16)
[2021-10-10 13:15] LABS: OSMOLALITY URINE 629 MOSM/KG (50-1400)
[2021-10-10 14:00] VITALS: BP 117/57
[2021-10-10 14:29] LABS: CHLORIDE,RANDOM URINE < 10 MEQ/L; CREATININE,RANDOM URINE 99.5 MG/DL; POTASSIUM RANDOM URINE 63.6 MEQ/L; SODIUM,RANDOM URINE 21 MEQ/L
[2021-10-10 18:21] VITALS: BP 123/58
[2021-10-10] MEDS: ROSUVASTATIN 10 MG TAB (CRESTOR) PO SCH (20:17)
[2021-10-10] MEDS: MIRTAZAPINE 7.5MG PER 1/2 TABLET PO SCH (20:17)
[2021-10-11 00:10] VITALS: O2SAT 95
[2021-10-11] MEDS: HEPARIN SOD (PORCINE) 5000UNITS/ML 1ML VIAL/SYRINGE SQ SCH (05:16)
[2021-10-11 05:20] VITALS: BP 112/63
[2021-10-11 07:08] LABS: HEMATOCRIT 36.4 % (42.0-52.0); HEMOGLOBIN 11.8 g/dl (13.5-17.5); MEAN CORPUSCULAR HEMOGLOBIN 31.5 pg (27.0-33.0); MEAN CORPUSCULAR HGB CONC 32.4 g/dl (32.0-36.5); MEAN CORPUSCULAR VOLUME 97.1 fl (80.0-96.0); PLATELET COUNT, AUTOMATED 216 10^3/uL (150-450); RED BLOOD COUNT 3.75 10^6/uL (4.30-6.10); WHITE BLOOD COUNT 9.5 10^3/uL (4.0-10.0)
[2021-10-11 07:24] LABS: CALCIUM LEVEL 9.4 MG/DL (8.8-10.2); CREATININE FOR GFR 2.35 MG/DL (0.70-1.30); GLOMERULAR FILTRATION RATE 28.8 (>42); MAGNESIUM LEVEL 2.5 MG/DL (1.8-2.4)
[2021-10-11 09:00] VITALS: O2SAT 92
[2021-10-11] MEDS: TIMOLOL MALEATE 0.5% OPHTH SOLN 5 ML OU SCH ×2 (09:00→10:11)
[2021-10-11] MEDS: PANTOPRAZOLE 40MG TAB (PROTONIX) PO SCH (10:09)
[2021-10-11] MEDS: buPROPion **XL** TABLET 150MG (WELLBUTRIN XL) PO SCH (10:09)
[2021-10-11] MEDS: FERROUS SULFATE 325MG TAB PO SCH (10:09)
[2021-10-11 10:10] VITALS: BP 117/55
[2021-10-11] MEDS: CALCITRIOL 0.25 MCG CAP (S0169) PO SCH (10:10)
[2021-10-11] MEDS: VITAMIN D 1,000 INTERNATIONAL UNITS TABLET PO SCH (10:10)
[2021-10-11] MEDS: METOPROLOL TART 25 MG TABLET PO SCH (10:10)
[2021-10-11] MEDS: ASPIRIN 81MG ENTERIC TABLET PO SCH (10:10)
[2021-10-11] MEDS: SERTRALINE 100 MG TAB PO SCH (10:10)
[2021-10-11] MEDS: BRIMONIDINE 0.15% OPHTH SOLN 5 ML OU SCH (10:11)
[2021-10-11] MEDS: LATANOPROST 0.005% OPHTH SOLN 2.5 ML OU SCH (10:11)
[2021-10-11] MEDS ORDERED: METO1TAB87 PO (11:13)
[2021-10-11] MEDS ORDERED: ASPI-551 PO (11:13)
[2021-10-11] MEDS ORDERED: FURO20TA2 PO (12:10)
== END 2021-10-11 12:44 | disposition home or self-care (01) | DRG 291 ==
LOC: M ED 15:35 → M ED INP 21:05 → ENRESERV 10-09 00:17 → M MSPAV 10-09 01:25
PROVIDERS: ADMIT Family Medicine; ATTEND Internal Medicine
DX: I13.0 Hypertensive heart and chronic kidney disease with heart failure and stage 1 through stage 4 chronic kidney disease, or unspecified chronic kidney disease (principal); I50.23 Acute on chronic systolic (congestive) heart failure; I48.0 Paroxysmal atrial fibrillation; N18.30 Chronic kidney disease, stage 3 unspecified; H40.9 Unspecified glaucoma; I25.10 Atherosclerotic heart disease of native coronary artery without angina pectoris; K21.9 Gastro-esophageal reflux disease without esophagitis; F32.A Depression, unspecified; F41.9 Anxiety disorder, unspecified; E78.5 Hyperlipidemia, unspecified; I69.398 Other sequelae of cerebral infarction; Z95.5 Presence of coronary angioplasty implant and graft; Z95.818 Presence of other cardiac implants and grafts; Z85.46 Personal history of malignant neoplasm of prostate; Z92.3 Personal history of irradiation; Z20.822 Contact with and (suspected) exposure to COVID-19; Z90.49 Acquired absence of other specified parts of digestive tract; Z87.891 Personal history of nicotine dependence; Z79.899 Other long term (current) drug therapy; Z88.8 Allergy status to other drugs, medicaments and biological substances; E87.6 Hypokalemia; D64.9 Anemia, unspecified; I73.9 Peripheral vascular disease, unspecified

== ENCOUNTER → 2021-10-13 | Outpatient (REF) | payer MEDICARE ==
[~2021-10-13] MED LIST changes: +BUPR150T12 PO; +METO1TAB87 PO; +MIRT1TAB PO
[2021-10-13 19:27] LABS: BASOPHILS 1 % (0-1); EOSINOPHILS 4 % (0-3); LYMPHOCYTES 12 % (16-44); NEUTROPHILS 83 % (28-66)
[2021-10-13 19:28] LABS: PLATELET ESTIMATE NORMAL (NORMAL)
== END ==
LOC: M LAB REF 16:14
PROVIDERS: ATTEND Internal Medicine
DX: D72.9 Disorder of white blood cells, unspecified (principal)

== ENCOUNTER → 2021-10-18 | Outpatient (REF) | payer MEDICARE ==
[2021-10-18 18:35] LABS: BASOPHILS 1 % (0-1); EOSINOPHILS 4 % (0-3); LYMPHOCYTES 8 % (16-44); MONOCYTES 2 % (0-5); NEUTROPHILS 85 % (28-66); PLATELET ESTIMATE NORMAL (NORMAL)
== END ==
LOC: M LAB REF 17:05
PROVIDERS: ATTEND Internal Medicine
DX: D72.89 Other specified disorders of white blood cells (principal)

== ENCOUNTER → 2021-10-20 | Outpatient (CLI) | payer MEDICARE | LOC: M PLAIMG 13:38 | PROVIDERS: ATTEND Internal Medicine | DX: R91.8 Other nonspecific abnormal finding of lung field (principal); R06.02 Shortness of breath ==

== ENCOUNTER → 2021-12-03 | Outpatient (CLI) | payer MEDICARE | LOC: M LAB 14:32 | PROVIDERS: ATTEND Urology | DX: C61 Malignant neoplasm of prostate (principal) ==

== ENCOUNTER 2021-12-13 14:22 | Inpatient (IN) | payer MEDICARE ==
[~2021-12-13] VITALS: Ht 172.7 cm; Wt 52.5 kg
[2021-12-13] MEDS ORDERED: METO1TAB7 PO (14:36)
[2021-12-13 15:59] LABS: BASO % 0.4 % (0.0-1.0); EOS # 0.2 10^3/uL (0.0-0.5); HEMATOCRIT 39.7 % (42.0-52.0); HEMOGLOBIN 12.8 g/dl (13.5-17.5); LYMPH # 0.6 10^3/uL (1.5-5.0); LYMPH % 6.2 % (24.0-44.0); MEAN CORPUSCULAR HGB CONC 32.2 g/dl (32.0-36.5); MEAN CORPUSCULAR VOLUME 96.1 fl (80.0-96.0); MONO # 1.1 10^3/uL (0.0-0.8); MONO % 12.3 % (2.0-8.0); NEUTROPHILS # 7.3 10^3/uL (1.5-8.5); NEUTROPHILS % 78.8 % (36.0-66.0); PLATELET COUNT, AUTOMATED 148 10^3/uL (150-450); RED BLOOD COUNT 4.13 10^6/uL (4.30-6.10); WHITE BLOOD COUNT 9.2 10^3/uL (4.0-10.0)
[2021-12-13 16:28] LABS: ABG BASE EXCESS -5.7 (-2.0-2.0); ABG HCO3 18.6 MEQ/L (22.0-26.0); ABG O2 SATURATION 90.4 % (95.0-99.0); ABG PARTIAL PRESSURE O2 60.8 mmHg (75.0-100.0); ABG STANDARD HCO3 19.7 MEQ/L (22.0-26.0); ABG TOTAL CO2 19.6 MEQ/L (23.0-31.0); ABG pH (ARTERIAL) 7.369 UNITS (7.350-7.450)
[2021-12-13 16:29] LABS: CK-MB VALUE MASS 1.5 NG/ML (<3.6); MB/CK RELATIVE INDEX 3.41 (< OR =4)
[2021-12-13 16:35] LABS: BILIRUBIN,DIRECT 0.2 MG/DL (0.0-0.2); BILIRUBIN,TOTAL 0.4 MG/DL (0.2-1.0); CALCIUM LEVEL 9.5 MG/DL (8.8-10.2); CREATININE FOR GFR 2.4 MG/DL (0.70-1.30); THYROID STIMULATING HORMONE 3.34 uIU/ML (0.358-3.740); TOTAL PROTEIN 7.2 GM/DL (6.4-8.2)
[2021-12-13] MEDS ORDERED: FUROSEMIDE 40MG/4ML VIAL (J1940) IV ONE (18:20)
[2021-12-13] MEDS ORDERED: ASPI81TA26 PO (19:37)
[2021-12-13] MEDS ORDERED: FURO20TA2 PO (19:37)
[2021-12-13] MEDS ORDERED: ACETAMINOPHEN TAB 650MG DOSE (2X325MG) PO PRN (20:15)
[2021-12-13] MEDS ORDERED: HOME MED LIST COMPLETE! XX SCH (20:40)
[2021-12-13] MEDS: METOPROLOL SUCC (TopROL XL) 50MG **XL** TAB PO SCH (21:00)
[2021-12-13] MEDS: LATANOPROST 0.005% OPHTH SOLN 2.5 ML OU SCH (21:00)
[2021-12-13] MEDS: ROSUVASTATIN 10 MG TAB (CRESTOR) PO SCH (21:00)
[2021-12-13] MEDS: DOCUSATE SODIUM 100MG CAPSULE PO SCH (23:07)
[2021-12-13 23:49] VITALS: BP 142/67
[2021-12-14 00:54] VITALS: BP 109/53
[2021-12-14] MEDS ORDERED: NITROGLYCERIN 0.4 MG SUBL TABLET SL PRN (01:15)
[2021-12-14 04:05] VITALS: BP 122/59
[2021-12-14 06:02] LABS: CALCIUM LEVEL 9.5 MG/DL (8.8-10.2); CREATININE FOR GFR 2.33 MG/DL (0.70-1.30); MAGNESIUM LEVEL 2.3 MG/DL (1.8-2.4); POTASSIUM SERUM 3.4 MEQ/L (3.5-5.1)
[2021-12-14 08:00] VITALS: BP 140/66
[2021-12-14] MEDS: FERROUS SULFATE 325MG TAB PO SCH (08:58)
[2021-12-14] MEDS: BRIMONIDINE 0.15% OPHTH SOLN 5 ML OU SCH ×2 (08:58→20:45)
[2021-12-14] MEDS: ASPIRIN 81MG ENTERIC TABLET PO SCH (08:58)
[2021-12-14] MEDS: DOCUSATE SODIUM 100MG CAPSULE PO SCH ×2 (08:58→20:45)
[2021-12-14] MEDS: SERTRALINE 100 MG TAB PO SCH (08:58)
[2021-12-14] MEDS: CALCITRIOL 0.25 MCG CAP (S0169) PO SCH (08:59)
[2021-12-14] MEDS: METOPROLOL SUCC (TopROL XL) 50MG **XL** TAB PO SCH ×2 (08:59→20:47)
[2021-12-14] MEDS ORDERED: PANTOPRAZOLE 40MG TAB (PROTONIX) PO SCH (09:00)
[2021-12-14] MEDS ORDERED: FUROSEMIDE 40MG/4ML VIAL (J1940) IV SCH ×2 (09:00→17:30)
[2021-12-14] MEDS ORDERED: FUROSEMIDE 100MG/10ML VIAL (J1940) IV SCH (09:00)
[2021-12-14 12:00] VITALS: BP 155/67
[2021-12-14 16:38] VITALS: BP 140/62
[2021-12-14 20:00] VITALS: BP 137/70
[2021-12-14] MEDS: ROSUVASTATIN 10 MG TAB (CRESTOR) PO SCH (20:45)
[2021-12-14] MEDS: LATANOPROST 0.005% OPHTH SOLN 2.5 ML OU SCH (20:47)
[2021-12-15 04:00] VITALS: BP 104/58
[2021-12-15 05:37] LABS: BASO # 0.1 10^3/uL (0.0-0.2); BASO % 0.6 % (0.0-1.0); EOS # 0.3 10^3/uL (0.0-0.5); EOS % 3.4 % (0.0-3.0); HEMATOCRIT 42.8 % (42.0-52.0); HEMOGLOBIN 14.1 g/dl (13.5-17.5); LYMPH # 0.9 10^3/uL (1.5-5.0); LYMPH % 9.4 % (24.0-44.0); MEAN CORPUSCULAR HEMOGLOBIN 30.8 pg (27.0-33.0); MEAN CORPUSCULAR HGB CONC 32.9 g/dl (32.0-36.5); MEAN CORPUSCULAR VOLUME 93.4 fl (80.0-96.0); MONO # 1.5 10^3/uL (0.0-0.8); MONO % 15.5 % (2.0-8.0); NEUTROPHILS # 6.6 10^3/uL (1.5-8.5); NEUTROPHILS % 70.8 % (36.0-66.0); PLATELET COUNT, AUTOMATED 148 10^3/uL (150-450); RED BLOOD COUNT 4.58 10^6/uL (4.30-6.10); WHITE BLOOD COUNT 9.3 10^3/uL (4.0-10.0)
[2021-12-15 05:52] LABS: CREATININE FOR GFR 2.36 MG/DL (0.70-1.30); GLOMERULAR FILTRATION RATE 28.6 (>42); POTASSIUM SERUM 3.4 MEQ/L (3.5-5.1)
[2021-12-15 08:00] VITALS: BP 127/63
[2021-12-15] MEDS ORDERED: POTASSIUM CHLORIDE 10MEQ SR TABLET PO ONE (08:00)
[2021-12-15] MEDS: SERTRALINE 100 MG TAB PO SCH (08:46)
[2021-12-15] MEDS: CALCITRIOL 0.25 MCG CAP (S0169) PO SCH (08:46)
[2021-12-15] MEDS: ASPIRIN 81MG ENTERIC TABLET PO SCH (08:46)
[2021-12-15] MEDS: DOCUSATE SODIUM 100MG CAPSULE PO SCH (08:46)
[2021-12-15] MEDS: FERROUS SULFATE 325MG TAB PO SCH (08:47)
[2021-12-15 08:48] VITALS: BP 127/63
[2021-12-15] MEDS: METOPROLOL SUCC (TopROL XL) 50MG **XL** TAB PO SCH (08:48)
[2021-12-15] MEDS: BRIMONIDINE 0.15% OPHTH SOLN 5 ML OU SCH (08:48)
[2021-12-15] MEDS ORDERED: FUROSEMIDE 80 MG TAB PO SCH (09:00)
[2021-12-15] MEDS ORDERED: FURO20TA2 PO (09:11)
== END 2021-12-15 11:28 | disposition home or self-care (01) | DRG 292 ==
LOC: M ED 14:22 → M ED INP 20:11 → ENRESERV 23:03 → M PCU 23:41
PROVIDERS: ADMIT Internal Medicine; ATTEND Internal Medicine Nephrology
DX: I50.23 Acute on chronic systolic (congestive) heart failure (principal); N18.4 Chronic kidney disease, stage 4 (severe); N30.40 Irradiation cystitis without hematuria; I35.0 Nonrheumatic aortic (valve) stenosis; I73.9 Peripheral vascular disease, unspecified; I27.20 Pulmonary hypertension, unspecified; I25.10 Atherosclerotic heart disease of native coronary artery without angina pectoris; I48.0 Paroxysmal atrial fibrillation; Z95.2 Presence of prosthetic heart valve; F41.9 Anxiety disorder, unspecified; F32.A Depression, unspecified; E78.5 Hyperlipidemia, unspecified; Z92.21 Personal history of antineoplastic chemotherapy; Z92.3 Personal history of irradiation; H40.9 Unspecified glaucoma; Z85.46 Personal history of malignant neoplasm of prostate; D64.9 Anemia, unspecified; R91.8 Other nonspecific abnormal finding of lung field; Z79.899 Other long term (current) drug therapy; Z79.82 Long term (current) use of aspirin; Z88.8 Allergy status to other drugs, medicaments and biological substances; Z95.1 Presence of aortocoronary bypass graft; I69.398 Other sequelae of cerebral infarction

== ENCOUNTER → 2022-01-05 | Outpatient (CLI) | payer MEDICARE ==
[~2022-01-05] MED LIST changes: +ASPI81TA26 PO; +METO1TAB7 PO
== END ==
LOC: M RAD 13:21
PROVIDERS: ATTEND Internal Medicine
DX: R06.02 Shortness of breath (principal); J90 Pleural effusion, not elsewhere classified; R91.8 Other nonspecific abnormal finding of lung field

== ENCOUNTER 2022-04-16 09:38 | Emergency (ER) | payer MEDICARE ==
[2022-04-16] MEDS ORDERED: diphenhydrAMINE 50MG/ML VIAL (J1200) IV PRN (10:10)
[2022-04-16] MEDS ORDERED: ALBUTEROL 90 MCG/ACT 8GM HFA INHALER INH PRN (10:10)
[2022-04-16] MEDS ORDERED: ACETAMINOPHEN TAB 650MG DOSE (2X325MG) PO PRN (10:10)
[2022-04-16] MEDS ORDERED: EPINEPHrine INJ 1 MG/ML 1ML AMP IM PRN (10:10)
[2022-04-16] MEDS ORDERED: methylPREDNISolone 125MG 2ML VIAL IV PRN (10:10)
[2022-04-16] MEDS ORDERED: ALBUTEROL SULFATE 2.5 MG/0.5 ML INH NEB SOLN INH PRN (10:10)
[2022-04-16] MEDS ORDERED: NS 1,000 ML IV SCH (10:10)
[2022-04-16] MEDS ORDERED: BEBTELOVIMAB 175MG 2ML VIAL (EUA) IV ONE ×2 (10:10→10:45)
[2022-04-16 12:10] VITALS: BP 135/59
== END 2022-04-16 12:16 | disposition home or self-care (01) ==
LOC: M ED 09:38
DX: U07.1 COVID-19 (principal); I48.91 Unspecified atrial fibrillation; I25.10 Atherosclerotic heart disease of native coronary artery without angina pectoris; I50.9 Heart failure, unspecified; Z86.73 Personal history of transient ischemic attack (TIA), and cerebral infarction without residual deficits; I27.20 Pulmonary hypertension, unspecified; Z95.1 Presence of aortocoronary bypass graft; Z95.5 Presence of coronary angioplasty implant and graft; Z79.82 Long term (current) use of aspirin; Z79.899 Other long term (current) drug therapy; Z88.8 Allergy status to other drugs, medicaments and biological substances
CPT/HCPCS: 96360; 99284; M0222; Q0222

== ENCOUNTER 2022-04-18 10:05 | Emergency (ER) | payer MEDICARE ==
[~2022-04-18] VITALS: Ht 172.7 cm; Wt 61.9 kg
[2022-04-18 14:00] LABS: BASO # 0.1 10^3/uL (0.0-0.2); BASO % 0.8 % (0.0-1.0); EOS # 0.2 10^3/uL (0.0-0.5); EOS % 3.6 % (0.0-3.0); HEMATOCRIT 40.6 % (42.0-52.0); HEMOGLOBIN 13.3 g/dl (13.5-17.5); LYMPH # 0.9 10^3/uL (1.5-5.0); LYMPH % 14.7 % (24.0-44.0); MEAN CORPUSCULAR HEMOGLOBIN 32.2 pg (27.0-33.0); MEAN CORPUSCULAR HGB CONC 32.8 g/dl (32.0-36.5); MEAN CORPUSCULAR VOLUME 98.3 fl (80.0-96.0); MONO # 0.9 10^3/uL (0.0-0.8); MONO % 15.8 % (2.0-8.0); NEUTROPHILS # 3.8 10^3/uL (1.5-8.5); NEUTROPHILS % 64.4 % (36.0-66.0); PLATELET COUNT, AUTOMATED 186 10^3/uL (150-450); RED BLOOD COUNT 4.13 10^6/uL (4.30-6.10); WHITE BLOOD COUNT 5.9 10^3/uL (4.0-10.0)
[2022-04-18] MEDS ORDERED: ALBUTEROL 90 MCG/ACT 8GM HFA INHALER INH ONE (14:25)
[2022-04-18 14:52] LABS: CALCIUM LEVEL 9.6 MG/DL (8.8-10.2); CREATININE FOR GFR 2.53 MG/DL (0.70-1.30); GLOMERULAR FILTRATION RATE 26.4 (>42); POTASSIUM SERUM 4.1 MEQ/L (3.5-5.1)
[2022-04-18] MEDS ORDERED: VENTAER INH (16:03)
[2022-04-18] MEDS ORDERED: BENZ200C70 PO (16:03)
[2022-04-18 16:12] VITALS: BP 140/62
== END 2022-04-18 16:14 | disposition home or self-care (01) ==
LOC: M ED 10:05
DX: U07.1 COVID-19 (principal); I48.91 Unspecified atrial fibrillation; I50.23 Acute on chronic systolic (congestive) heart failure; I13.0 Hypertensive heart and chronic kidney disease with heart failure and stage 1 through stage 4 chronic kidney disease, or unspecified chronic kidney disease; N40.0 Benign prostatic hyperplasia without lower urinary tract symptoms; I70.0 Atherosclerosis of aorta; Z95.1 Presence of aortocoronary bypass graft; Z86.73 Personal history of transient ischemic attack (TIA), and cerebral infarction without residual deficits; I25.2 Old myocardial infarction; Z85.46 Personal history of malignant neoplasm of prostate; Z79.51 Long term (current) use of inhaled steroids; Z79.899 Other long term (current) drug therapy

== ENCOUNTER → 2022-12-16 | Outpatient (CLI) | payer MEDICARE ==
[~2022-12-16] MED LIST changes: +BENZ200C70 PO; +CLOP75TA99 PO; -PLAV1TAB2 PO; +VENTAER INH
== END ==
LOC: M RAD 11:17
PROVIDERS: ATTEND Internal Medicine Nephrology
DX: I50.33 Acute on chronic diastolic (congestive) heart failure (principal); Z95.1 Presence of aortocoronary bypass graft; R91.8 Other nonspecific abnormal finding of lung field